=== PATIENT | female | born 1990 | race Caucasian/White ===

== ENCOUNTER 2018-01-08 12:07 | Emergency (ER) | payer OTHER ==
[2018-01-08 13:34] VITALS: BP 120/78
--- NOTE | 2018-01-08 13:42 | UC ---
Knee Pain HPI - HPI Summary HPI Summary: Patient presents with a remote history if left knee pain and injury from playing softball. She states it got better all on its own. She states that a few days agos her knee started to hurt again, and it began to swell. She states that the pain got so bad that is cannot walk on it. She states the pain is constant, but worse when she bends it, extends it, or walks on it. She states the pain is both on the inside, and outside of her knee. She denies any recent injury or trauma, new activity that would explain her pain. She denies any fever ,chills or warmth in the joing. - History of Current Complaint Chief Complaint: UCLowerExtremity Stated Complaint: KNEE PAIN Time Seen by Provider: 01/08/18 13:28 Hx Obtained From: Patient Hx Last Menstrual Period: BREAST FEEDING Onset/Duration: Sudden Onset, Lasting Days Severity Initially: Mild Severity Currently: Moderate Pain Intensity: 8 Character: Aching Aggravating Factor(s): Movement, Weight Bearing, Prolonged Standing, Stairs Alleviating Factor(s): Cold Associated Signs And Symptoms: Positive: Swelling Able to Bear Weight: Yes - but limping. - Risk Factors Septic Arthritis Risk Factor: Negative Gout Risk Factor: Negative - Allergies/Home Medications Allergies/Adverse Reactions: Allergies Allergy/AdvReac Type Severity Reaction Status Date / Time No Known Allergies Allergy Verified 08/13/16 16:38 Home Medications: Home Medications Clindamycin Cap(NF) [Clindamycin Cap 300 mg Cap(NF)] 300 mg PO Q6H 01/08/18 [ History Confirmed 01/08/18] Ibuprofen 800 mg PO Q8HR PRN 01/08/18 [History Confirmed 01/08/18] PMH/Surg Hx/FS Hx/Imm Hx Previously Healthy: Yes - Surgical History Surgical History: Yes Surgery Procedure, Year, and Place: D&C 09/04 - Family History Known Family History: Positive: None, Other - no hx RA/lupus - Social History Lives: With Family Alcohol Use: Rare Substance Use Type: None Smoking Status (MU): Former Smoker Type: Cigarettes Amount Used/How Often: 1/2 ppd Length of Time of Smoking/Using Tobacco: 10 yrs Have You Smoked in the Last Year: Yes Review of Systems Constitutional: Negative Skin: Negative Eyes: Negative ENT: Negative Respiratory: Negative Cardiovascular: Negative Gastrointestinal: Negative Genitourinary: Negative Motor: Negative Neurovascular: Negative Musculoskeletal: Decreased ROM, Edema, Myalgia Neurological: Negative Psychological: Negative Is Patient Immunocompromised?: No All Other Systems Reviewed And Are Negative: Yes Physical Exam Triage Information Reviewed: Yes Appearance: Well-Appearing Vital Signs: Initial Vital Signs Temp 98.5 F 01/08/18 13:29 Pulse 85 01/08/18 13:29 Resp 18 01/08/18 13:29 BP 120/78 01/08/18 13:29 Pulse Ox 99 01/08/18 13:29 Vital Signs Reviewed: Yes Eye Exam: Normal ENT Exam: Normal Neck exam: Normal Neck: Positive: 1 Respiratory Exam: Normal Cardiovascular Exam: Normal Abdominal Exam: Normal Musculoskeletal Exam: Normal Musculoskeletal: Positive: Strength Limited @ - right knee, medial and lateral collateral ligament tenderness on palpation. negative anterior and posterior draw sign, negative varus, and valus stress test., ROM Limited @, Edema @ Neurological Exam: Normal Psychological Exam: Normal Skin Exam: Normal Knee Pain Course/Dx - Course Course Of Treatment: Patient presents with non-traumatic right knee pain, with effusion present. She remains neuro-vasc intact and xrays of the knee were obtained and were negative. She was provided with crtches for non-weigh bearing activity and referred to the orthopedist. Pain addressed. Discahrge home is stable condition. - Differential Dx/Diagnosis Differential Diagnosis/HQI/PQRI: Sprain, Strain - right knee strain right knee sprain internal knee injury Provider Diagnoses: right knee sprain. right knee strain. internal knee injury Discharge - Discharge Plan Condition: Stable Disposition: HOME Patient Education Materials: Swollen Knee Joint (ED), Knee Pain (ED) Referrals: Manjit Duvall MD [Medical Doctor] - No Primary Care Phys,NOPCP [Primary Care Provider] -
--- NOTE | 2018-01-08 14:24 | RAD ---
INDICATION: Left knee pain. TECHNIQUE: 4 views of the left knee were obtained. FINDINGS: There is soft tissue swelling anterior to the proximal tibia. The bones are in normal alignment. No joint effusion or fracture is seen. Joint spaces appear maintained. IMPRESSION: SOFT TISSUE SWELLING.
== END 2018-01-08 14:50 | disposition home or self-care (01) ==
LOC: UCEAST 12:07
DX: S83.91XA Sprain of unspecified site of right knee, initial encounter (principal); S86.911A Strain of unspecified muscle(s) and tendon(s) at lower leg level, right leg, initial encounter; Z87.891 Personal history of nicotine dependence; X58.XXXA Exposure to other specified factors, initial encounter; Y92.9 Unspecified place or not applicable
CPT/HCPCS: 99213; G0463

== ENCOUNTER 2018-01-28 20:26 | Emergency (ER) | payer OTHER ==
[2018-01-28 20:34] VITALS: BP 136/89
[2018-01-28] MEDS ORDERED: Lidocaine 1% MPF* 2 ML VIAL INJ ONE (21:41)
[2018-01-28] MEDS ORDERED: cefTRIAXone VIAL(*) 1,000 MG VIAL IM ONE (21:41)
--- NOTE | 2018-01-28 21:48 | UC ---
Dental HPI - HPI Summary HPI Summary: 27 yo WF with h/o dental caries and filling in teeth #30 and 31 (molars are extracted) p/w severe pain due to abscess. Pt called her dentist and was told by her dentist to come to clinic for IV abx. HAs been on PO clindamycin for 1 month, lst visit to dentist was 2 days ago but needs oral surgeon to extract abscessed tooth due to "bent nerve" which cannot be done by her dentist. Awaiting oral surgeon appt on February 24 - History of Current Complaint Chief Complaint: UCDentalProblem Stated Complaint: DENTAL Time Seen by Provider: 01/28/18 21:25 Hx Obtained From: Patient Hx Last Menstrual Period: BREAST FEEDING Onset/Duration: Lasting Weeks, Still Present Severity: Severe Pain Intensity: 10 Aggravating Factor(s): Nothing Alleviating Factor(s): Nothing - Allergies/Home Medications Allergies/Adverse Reactions: Allergies Allergy/AdvReac Type Severity Reaction Status Date / Time No Known Allergies Allergy Verified 01/28/18 20:34 Home Medications: Home Medications Oxycodone HCl/Acetaminophen [Percocet 10-325 mg Tablet] 1 each PO PRN 01/28/18 [ History] PMH/Surg Hx/FS Hx/Imm Hx - Additional Past Medical History Additional PMH: none - Surgical History Surgical History: Yes Surgery Procedure, Year, and Place: D&C 09/04 - Family History Known Family History: Positive: None, Other - no hx RA/lupus - Social History Alcohol Use: None Substance Use Type: None Smoking Status (MU): Current Every Day Smoker Type: Cigarettes Amount Used/How Often: 5-6 CIG/DAY Length of Time of Smoking/Using Tobacco: 10 yrs Have You Smoked in the Last Year: Yes Review of Systems Constitutional: Negative Skin: Negative Eyes: Negative ENT: Other - see HPI Respiratory: Negative Cardiovascular: Negative Gastrointestinal: Negative Genitourinary: Negative Motor: Negative Neurovascular: Negative Musculoskeletal: Negative Neurological: Negative Psychological: Negative All Other Systems Reviewed And Are Negative: Yes Physical Exam Triage Information Reviewed: Yes Vital Signs: Initial Vital Signs Temp 36.6 C 01/28/18 20:28 Pulse 92 01/28/18 20:28 Resp 16 01/28/18 20:28 BP 136/89 01/28/18 20:28 Pulse Ox 100 01/28/18 20:28 Eye Exam: Normal ENT Exam: Normal Dental: Positive: Gross Decay/Caries @ - teeth 30 and 31caries and filling, abscess with exquisite tenderness deeply to root of tooth 30 Neck exam: Normal Neck: Positive: 1 Respiratory Exam: Normal Cardiovascular Exam: Normal Abdominal Exam: Normal Musculoskeletal Exam: Normal Neurological Exam: Normal Psychological Exam: Normal Skin Exam: Normal Dental Complaint Course/Dx - Course Course Of Treatment: IV Rocephin 1g administered, per pt request and also due to minimal efficacy of PO clindamycin inspite of taking it x1 month, will change medicationover to ceftin 500 BID x10 more days - Differential Dx/Diagnosis Differential Diagnosis/Dx: Dental Abscess, Dental Caries, Peridontic Disease Provider Diagnoses: dental abscess Discharge - Discharge Plan Condition: Stable Disposition: HOME Prescriptions: ceFUROXime TAB(*) [Ceftin TAB 250 MG(*)] 500 mg PO BID 10 Days #20 tab Patient Education Materials: Dental Abscess (ED) Referrals: Barb Newman MD [Primary Care Provider] - Additional Instructions: f/u with dentist simba
== END 2018-01-28 22:12 | disposition home or self-care (01) ==
LOC: UCEAST 20:26
DX: K04.7 Periapical abscess without sinus (principal); K02.9 Dental caries, unspecified; F17.210 Nicotine dependence, cigarettes, uncomplicated
CPT/HCPCS: 96372; 99212; G0463; J0696

== ENCOUNTER 2018-04-13 07:10 | Emergency (ER) | payer OTHER ==
[2018-04-13 07:26] VITALS: BP 129/88
--- NOTE | 2018-04-13 08:05 | UC ---
Complaint Female HPI - HPI Summary HPI Summary: 27 yo WF lactating WF p/w UTI sx- dysuria, urgency and frequency, lower abd pain , B/L lower back pains x 2 days, denies f/c - History Of Current Complaint Chief Complaint: UCGU Stated Complaint: URINARY Hx Obtained From: Patient Hx Last Menstrual Period: 03/21/18 ?: No Onset/Duration: Gradual Onset Severity Initially: Moderate Severity Currently: Severe Pain Intensity: 10 Aggravating Factor(s): Urination Alleviating Factor(s): Nothing Associated Signs And Symptoms: Positive: Back Pain - Allergies/Home Medications Allergies/Adverse Reactions: Allergies Allergy/AdvReac Type Severity Reaction Status Date / Time No Known Allergies Allergy Verified 04/13/18 07:26 PMH/Surg Hx/FS Hx/Imm Hx Previously Healthy: Yes - Surgical History Surgical History: Yes Surgery Procedure, Year, and Place: D&C 09/04 - Family History Known Family History: Positive: None, Other - no hx RA/lupus - Social History Alcohol Use: None Substance Use Type: None Smoking Status (MU): Current Every Day Smoker Type: Cigarettes Amount Used/How Often: 5-6 CIG/DAY Length of Time of Smoking/Using Tobacco: 10 yrs Have You Smoked in the Last Year: Yes Review of Systems Constitutional: Negative Skin: Negative Eyes: Negative ENT: Negative Respiratory: Negative Cardiovascular: Negative Gastrointestinal: Negative Genitourinary: Dysuria, Frequency, Urgency Motor: Negative Neurovascular: Negative Musculoskeletal: Negative Neurological: Negative Psychological: Negative All Other Systems Reviewed And Are Negative: Yes Physical Exam Triage Information Reviewed: Yes Appearance: Well-Appearing Vital Signs: Initial Vital Signs Temp 36.3 C 04/13/18 07:20 Pulse 85 04/13/18 07:20 Resp 20 04/13/18 07:20 BP 129/88 04/13/18 07:20 Pulse Ox 98 04/13/18 07:20 Eye Exam: Normal ENT Exam: Normal Dental Exam: Normal Neck exam: Normal Neck: Positive: 1 Respiratory Exam: Normal Cardiovascular Exam: Normal Abdomen Description: Positive: Soft, CVA Tenderness (R), CVA Tenderness (L), Other: - suprapubic tenderness Musculoskeletal Exam: Normal Neurological Exam: Normal Psychological Exam: Normal Skin Exam: Normal Complaint Female Dx - Course Course Of Treatment: UA positive for LE, blood - Differential Dx/Diagnosis Provider Diagnoses: UTI Discharge - Sign-Out/Discharge Documenting (check all that apply): Discharge/Admit/Transfer - Discharge Plan Condition: Stable Disposition: HOME Prescriptions: Amoxicillin PO (*) [Amoxicillin 875 MG (*)] 875 mg PO BID 10 Days #20 tab Fluconazole [Fluconazole 150 mg tab] 150 mg PO DAILY 2 Days #2 tablet Patient Education Materials: Urinary Tract Infection in Women (ED) Referrals: Barb Newman MD [Primary Care Provider] - - Billing Disposition and Condition Condition: STABLE Disposition: HOME
== END 2018-04-13 08:08 | disposition home or self-care (01) ==
LOC: UCEAST 07:10
DX: N39.0 Urinary tract infection, site not specified (principal); F17.210 Nicotine dependence, cigarettes, uncomplicated
CPT/HCPCS: 81003; 87077; 87086; 87186; 99212; G0463

== ENCOUNTER 2018-08-06 10:46 | Emergency (ER) | payer OTHER ==
[2018-08-06 10:52] VITALS: BP 135/78
--- NOTE | 2018-08-06 11:24 | UC ---
Back Pain HPI - HPI Summary HPI Summary: pt has had low back pain several times in past. has been pain free for 1-2 years. however last carmel she bent over to lift gatorade into shopping cart and felt a sharp pain in R lower back. worsened over carmel and occasionally pain radiates to R leg. no incontinence or numbness. heat and ibuprofen 800mg has helped a bit - History of Current Complaint Chief Complaint: UCBackPain Stated Complaint: R LEG, LOWER BACK PAIN Time Seen by Provider: 08/06/18 11:09 Hx Obtained From: Patient Hx Last Menstrual Period: 07/26/18 ?: No Onset/Duration: Sudden Onset Timing: Constant Severity Initially: Moderate Severity Currently: Severe Pain Intensity: 8 Back Pain: Is Discrete @ - R lower back Character: Throbbing, Stiffness Aggravating Factor(s): Movement, Bending Alleviating Factor(s): Heat, OTC Meds Associated Signs And Symptoms: Positive: Negative Related History: Similar Episode Dx As - low back strain - Risk Factors Cauda Equina Risk Factors: Negative - Allergies/Home Medications Allergies/Adverse Reactions: Allergies Allergy/AdvReac Type Severity Reaction Status Date / Time No Known Allergies Allergy Verified 08/06/18 10:53 PMH/Surg Hx/FS Hx/Imm Hx Previously Healthy: Yes - Surgical History Surgical History: Yes Surgery Procedure, Year, and Place: D&C 09/04 - Family History Known Family History: Positive: None, Other - no hx RA/lupus - Social History Occupation: Unemployed Lives: With Family Alcohol Use: None Substance Use Type: None Smoking Status (MU): Light Every Day Tobacco Smoker Type: Cigarettes Amount Used/How Often: 5-6 CIG/DAY Length of Time of Smoking/Using Tobacco: 10 yrs Have You Smoked in the Last Year: Yes Cessation Counseling: Patient Advised to Stop Review of Systems Constitutional: Negative Skin: Negative Respiratory: Negative Cardiovascular: Negative Musculoskeletal: Decreased ROM - low back Neurological: Negative Psychological: Negative Is Patient Immunocompromised?: No All Other Systems Reviewed And Are Negative: Yes Physical Exam Triage Information Reviewed: Yes Appearance: Well-Appearing, Pain Distress - sitting stiffly in chair, Obese Vital Signs: Initial Vital Signs Temp 98 F 08/06/18 10:48 Pulse 92 08/06/18 10:48 Resp 16 08/06/18 10:48 BP 135/78 08/06/18 10:48 Pulse Ox 99 08/06/18 10:48 Vital Signs Reviewed: Yes Neck exam: Normal Respiratory Exam: Normal Cardiovascular Exam: Normal Musculoskeletal: Positive: ROM Limited @ Neurological Exam: Normal Psychological Exam: Normal Skin Exam: Normal Skin: Negative: rashes Back Pain Course/Dx - Differential Dx/Diagnosis Differential Diagnosis/HQI/PQRI: Cauda Equina Syndrome, Strain, Sprain Provider Diagnoses: low back strain Discharge - Sign-Out/Discharge Documenting (check all that apply): Patient Departure All imaging exams completed and their final reports reviewed: No Studies - Discharge Plan Condition: Good Disposition: HOME Prescriptions: Cyclobenzaprine TAB* [Flexeril 10 MG TAB*] 10 mg PO TID PRN #12 tab PRN Reason: Pain - Back predniSONE TAB* [Deltasone TAB*] 50 mg PO DAILY #3 tab Patient Education Materials: Low Back Strain (ED) Referrals: Barb Newman MD [Primary Care Provider] - 3 Days (if no better) Additional Instructions: Take medication as directed use warm moist heat to back do stretching exercises no heavy lifting - Billing Disposition and Condition Condition: GOOD Disposition: Home
== END 2018-08-06 11:40 | disposition home or self-care (01) ==
LOC: UCEAST 10:46
DX: S39.012A Strain of muscle, fascia and tendon of lower back, initial encounter (principal); X50.0XXA Overexertion from strenuous movement or load, initial encounter; Y93.89 Activity, other specified; Y92.512 Supermarket, store or market as the place of occurrence of the external cause; F17.210 Nicotine dependence, cigarettes, uncomplicated
CPT/HCPCS: 99212; G0463

== ENCOUNTER 2018-10-10 15:48 | Emergency (ER) | payer OTHER ==
--- OUTSIDE RECORDS SUMMARY | 2018-10-10 16:06 | XMS REPORT | Continuity of Care Document ---
:1990 External Reference #:[id number] Author Name Radhames Alexandre N.P. Address [address] [facility] [address] [place] [address] Care Team Providers Name Role Phone Barb Newman MD Care Team Information Damage Inside Adjuster Unavailable Payers Type Date Identification Numbers Payment Provider Subscriber Policy Number: [id number] [facility] Mecca Vieira PayID: [id number] [address] [place] [address] Policy Number: [id number] Medicaid/[facility] Mecca Vieira PayID: [id number] [address] [place] [address] Advance Directives Description No Information Available Problems Date Description Provider Status Onset: 09/30/2014 Tobacco user Sherrill Perez FNP Active Family History Date Family Member(s) Problem(s) Comments Father 72 Father Cancer Mother 44 Mother No Current Problems First Son 8 First Son No Current Problems First Brother Age is Unknown First Brother No Current Problems Second Brother Age is Unknown Second Brother No Current Problems First Sister 24 First Sister No Current Problems Second Sister Age is Unknown Second Sister No Current Problems Social History Type Date Description Comments Sex Unknown Marital Status Legal Status: Legally 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 alcohol Tobacco Use Start: Unknown Patient is a current 10 cigarettes a day smoker, smokes every day Smoking Status Reviewed: 09/22/18 Patient is a current 10 cigarettes a day smoker, smokes every day Exercise Exercises rarely Type/Frequency Tattoo/Piercing Tattoo multiple tattoo's Tattoo/Piercing Pierced tongue Tattoo/Piercing Pierced ears Tattoo/Piercing nose piercing Allergies, Adverse Reactions, Alerts Description No Known Drug Allergies Medications Medication Date Status Form Strength Qnty SIG Indications Ordering Provider Citalopram 09/25/ Active Tablets 10mg 30tab 1 by mouth F41.9 Trent, Hydrobromide 2018 s every day Ahmad M., Take With M.D. 20MG Tabs. Total Dose=30MG Tylenol Extra 08/07/ Active Tablets 500mg 180ta 2 tabs by M54.5 Trent, Strength 2018 bs mouth three Ahmad M., times a day M.D. as directed. max daily dose of tylenol from all sources to not exceed 4000mg Cyclobenzaprine 08/07/ Active Tablets 5mg 90tab 1 tab by M54.5 Trent, HCL 2018 s mouth three Ahmad M., times a day M.D. as needed Celexa 08/07/ Active Tablets 20mg 30tab 1 by mouth F41.9 Trent, 2018 s every day Ahmad M., with 10mg M.D. tab total dose=30mg daily Naproxen Sodium 08/07/ Active Tablets 275mg 60tab 1 tab by Trent, 2018 s mouth twice Ahmad M., a day M.D. Aleve 08/07/ Hx Tablets 220mg 60tab 1 tab by M54.5 Trent, 2018 - s mouth twice Ahmad M., 08/07/ a day M.D. 2018 Tylenol Extra 08/07/ Hx Tablets 500mg 180ta 2 tabs by M54.5 Trent, Strength 2018 - bs mouth three Ahmad M., 08/07/ times a day M.D. 2018 as directed. max daily dose of tylenol from all sources to not exceed 4000mg Percocet 01/26/ Hx Tablets 10-325mg 30tab 1 tab by K02.9 Trent, 2018 - s mouth three Ahmad M., 08/07/ times a day M.D. 2018 as needed Ibuprofen 01/26/ Hx Tablets 800mg 90tab 1 by mouth K02.9 Trent, 2018 - s three times Ahmad M., 08/07/ a day as M.D. 2018 needed Azithromycin 08/09/ Hx Tablets 250mg 6tabs take two J01.40 Trent 2015 - tablets by Ahcherise M., 08/14/ mouth as M.D. 2016 one dose on the first day then take one daily thereafter x 4 days Amoxicillin 07/14/ Hx Tablets 500mg 30tab 1 three N39.0 [facility], 2015 - s times a day mad M., 07/21/ x10 day M.D. 2015 Amoxicillin 04/29/ Hx Tablets 500mg 40tab 2 by mouth J20.9 [facility], 2015 - [facility]. [facility] Clindamycin HCL 02/08/ Hx Capsules 150mg 20cap tab one by [facility], 2015 - s mouth twice mad M., 02/18/ a day M.D. 2015 Ciprofloxacin HCL 01/27/ Hx Tablets 500mg 20tab tab one by J01.80 Trent , 2015 - s mouth twice mad M., 02/06/ a day M.D. 2015 Medrol (William) 11/26/ Hx Tablets 4mg 21tab use as M54.42 [facility], 2015 - s directed [facility] 2016 Tramadol HCL 11/26/ Hx Tablets 50mg 45tab 1 by mouth M54.42 [facility], 2015 - s three times [facility] 12/06/ a day M.D. 2015 Adderall XR 10/29/ Hx Caps ER 30mg 30cap 1 by mouth F90.0 [facility], 2014 - 24HR s every [facility] 02/26/ morning M.D. 2016 Medrol (William) 10/08/ Hx Tablets 4mg 14tab use as S33.8xxA [facility], 2014 - s [facility] 2014 M54.5 Cipro 10/08/2015 - Hx Tablets 500mg 20tabs 1 twice a day J06.9 [facility] 10[facility]18[facility]2015 Isaac Chand J01.80 Lor Mendoza 10/08/2015 - Hx Capsules 100mg 60caps take Two R05 Trent, 10/29/2015 capsule by Barb Chand, mouth three M.D. times a day Diflucan 10/08/2015 - Hx Tablets 150mg 2tabs tab one now B37.3 [facility], 10/29/2015 may repeat Ahmad M., in 5 days M.D. Cheratussin ac 09/24/2015 - Hx Syrup 100-10mg/ 150cc teaspoon 1 R05 [facility], 10/08/2015 5ML every 4 Ahmad M., hours as M.D. needed 08/06/2015 - Hx Tablets 14-0.4mg 30tabs 1 by mouth N91.0 [facility] , Complete 10/29/2015 every day Barb Chand M.D. Physical 06/04/2015 - Hx M54.5 [facility], Therapy For 10/29/2015 [facility] Chronic Low M.D. Back Pain S33.8xxA M54.30 Cyclobenzaprine HCL 05/22/2015 - Hx Tablets 10mg 90tabs tab one by [facility], 10/29/2015 mouth three Ahmad M., times a day M.D. Adderall XR 04/23/2015 - Hx Caps ER 24HR 20mg 30caps tab 1 by F90. [facility], 10/29/2015 mouth every 0 Ahmad M., morning M.D. Strattera 03/24/2015 - Hx Capsules 40mg 30caps 1 cap by 314. [facility], 04/23/2015 mouth every 00 Ahmad M., day M.D. 300.00 Chantix 03/24/2015 - Hx Tablets 1mg 60tabs 1 by mouth 305.1 [facility], [facility] 04[facility]2015 twice a day Isaac Chand Medrol (William) 02/11/2015 - Hx Tablets 4mg 14tabs use as directed 846.0 [facility], [facility] 02/17/2015 Isaac Chand 724.2 Hydrocodone-Acetaminophen 02/11/2015 Hx Tablets 10-325mg 180tabs 1 by M54.5 [facility], - mouth mad 10/29/2015 every 4 M., hours M.D. as needed S33.8xxA Complete 01/17/2015 - Hx Tablets 14-0.4mg 30tabs 1 by mouth V22.2 [facility], 04/23/2015 every day Barb Chand M.D. 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 as needed for pain 846.0 Ibuprofen 09/13/2014 - Hx Tablets 800mg 90tabs 1 tab by mouth M54.5 Favian Newmanmad 01/26/2018 every 8 hours Isaac Chand with food as needed for pain S33.8xxA 08/05/2014 - Hx Tablets 14-0.4mg take 1 Chris, Complete 08/05/2014 tablet by Sherrill, BUTTER PRINTER mouth daily 19 08/05/2014 - Hx Tablets 29-1mg 30tab take 1 626.0 Chris, 09/20/2014 s tablet by Sherrill, BUTTER PRINTER mouth daily Amoxicillin 07/12/2014 - Hx Tablets 500mg 21tab take 1 528.9 Chris, 07/26/2014 s tablet by Sherrill, BUTTER PRINTER mouth three times a day for 7 days Immunizations CPT Code Status Date Vaccine Lot # [id number] Given 08/23/2018 Flu Vaccine [id number] 03605 Given 09/05/2014 Flu Vaccine 56923 Given 05/07/1993 Hep B To Age 18 11447 Given 09/25/1992 Hep B To Age 18 02132 Given 09/25/1992 IPV 07802 Given 09/25/1992 MMR 71270 Given 09/25/1992 DTaP [facility] [id number] ML 0.50 31138 Given 03/24/1992 Hemophilus Influenza B Vaccine 35771 Given 03/24/1992 DTaP [facility] [id number] ML 0.50 86138 Given 03/24/1992 MMR 13744 Given 03/24/1992 IPV 38405 Given 07/16/1991 IPV 35198 Given 07/16/1991 DTaP [facility] [id number] ML 0.50 90139 Given 07/16/1991 Hemophilus Influenza B Vaccine 17347 Given 02/01/1991 IPV 08479 Given 02/01/1991 DTaP [facility] [id number] ML 0.50 83285 Given 02/01/1991 Hemophilus Influenza B Vaccine Vital Signs Date Vital Result Comment 09/25/2018 11:21am BP Systolic 124 mmHg BP Diastolic 78 mmHg Height 64.5 inches 5'4.50" Weight 272.00 lb BMI (Body Mass Index) 46.0 kg/m2 Heart Rate 71 /min Respiratory Rate 14 /min 08/23/2018 11:09am BP Systolic 118 mmHg BP Diastolic 64 mmHg Height 64.5 inches 5'4.50" Weight 273.00 lb BMI (Body Mass Index) 46.1 kg/m2 Heart Rate 76 /min Respiratory Rate 16 /min 08/07/2018 11:09am BP Systolic 126 mmHg BP Diastolic 68 mmHg Height 64.5 inches 5'4.50" Weight 278.00 lb BMI (Body Mass Index) 47.0 kg/m2 Heart Rate 87 /min Respiratory Rate 16 /min 01/26/2018 1:10pm BP Systolic 122 mmHg BP Diastolic 84 mmHg Height 64.5 inches 5'4.50" Weight 284.00 lb BMI (Body Mass Index) 48.0 kg/m2 Heart Rate 84 /min Respiratory Rate 18 /min 03/28/2017 9:54am BP Systolic 116 mmHg BP Diastolic 60 mmHg Weight 257.00 lb Heart Rate 68 /min Respiratory Rate 16 /min 08/09/2016 1:39pm Weight 249.00 lb Heart Rate 82 /min Respiratory Rate 16 /min 07/14/2016 9:35am BP Systolic 122 mmHg BP Diastolic 70 mmHg Height 64.5 inches 5'4.50" Weight 247.00 lb BMI (Body Mass Index) 41.7 kg/m2 Heart Rate 112 /min Respiratory Rate 22 /min 06/14/2016 9:40am BP Systolic 128 mmHg BP Diastolic 76 mmHg Height 64.5 inches 5'4.50" Weight 241.00 lb BMI (Body Mass Index) 40.7 kg/m2 Heart Rate 86 /min Respiratory Rate 20 /min 04/29/2016 1:38pm BP Systolic 112 mmHg BP Diastolic 80 mmHg Height 64.5 inches 5'4.50" Weight 233.00 lb BMI (Body Mass Index) 39.4 kg/m2 Heart Rate 78 /min Body Temperature 97.9 F Respiratory Rate 18 /min 02/09/2016 10:30am BP Systolic 118 mmHg BP Diastolic 80 mmHg Height 64.5 inches 5'4.50" Weight 213.00 lb BMI (Body Mass Index) 36.0 kg/m2 Heart Rate 86 /min Respiratory Rate 18 /min 01/28/2016 10:52am BP Systolic 120 mmHg BP Diastolic 82 mmHg Height 64.5 inches 5'4.50" Weight 218.00 lb BMI (Body Mass Index) 36.8 kg/m2 Heart Rate 93 /min Body Temperature 97.5 F Respiratory Rate 18 /min 12/31/2015 9:42am BP Systolic 126 mmHg BP Diastolic 77 mmHg Height 64.5 inches 5'4.50" Weight 218.00 lb BMI (Body Mass Index) 36.8 kg/m2 Heart Rate 103 /min Respiratory Rate 18 /min 11/26/2015 3:57pm BP Systolic 121 mmHg BP Diastolic 83 mmHg Height 64.5 inches 5'4.50" Weight 218.00 lb BMI (Body Mass Index) 36.8 kg/m2 Heart Rate 101 /min Respiratory Rate 18 /min 10/29/2015 3:47pm BP Systolic 106 mmHg BP Diastolic 74 mmHg Height 64.5 inches 5'4.50" Weight 218.00 lb BMI (Body Mass Index) 36.8 kg/m2 Heart Rate 87 /min Respiratory Rate 18 /min 10/08/2015 9:53am BP Systolic 100 mmHg BP Diastolic 71 mmHg Height 64.5 inches 5'4.50" Weight 222.00 lb BMI (Body Mass Index) 37.5 kg/m2 Heart Rate 92 /min Body Temperature 97.4 F Respiratory Rate 22 /min 09/24/2015 8:44am BP Systolic 107 mmHg BP Diastolic 70 mmHg Height 64.5 inches 5'4.50" Weight 240.00 lb BMI (Body Mass Index) 40.6 kg/m2 Heart Rate 73 /min Body Temperature 97.5 F Respiratory Rate 18 /min 08/06/2015 10:18am BP Systolic 119 mmHg BP Diastolic 75 mmHg Height 64.5 inches 5'4.50" Weight 228.00 lb BMI (Body Mass Index) 38.5 kg/m2 Heart Rate 90 /min Respiratory Rate 18 /min 07/16/2015 1:36pm BP Systolic 131 mmHg BP Diastolic 84 mmHg Height 64.5 inches 5'4.50" Weight 222.00 lb BMI (Body Mass Index) 37.5 kg/m2 Heart Rate 106 /min Respiratory Rate 16 /min 05/22/2015 1:27pm BP Systolic 132 mmHg BP Diastolic 86 mmHg Height 64.5 inches 5'4.50" Weight 226.00 lb BMI (Body Mass Index) 38.2 kg/m2 Heart Rate 80 /min Respiratory Rate 20 /min 04/23/2015 1:39pm BP Systolic 135 mmHg BP Diastolic 73 mmHg Height 64.5 inches 5'4.50" Weight 229.00 lb BMI (Body Mass Index) 38.7 kg/m2 Heart Rate 100 /min Respiratory Rate 18 /min 03/24/2015 10:54am BP Systolic 115 mmHg BP Diastolic 79 mmHg Height 64.5 inches 5'4.50" Weight 244.00 lb BMI (Body Mass Index) 41.2 kg/m2 Heart Rate 99 /min Respiratory Rate 16 /min 02/11/2015 11:25am BP Systolic 115 mmHg BP Diastolic 76 mmHg Height 64.5 inches 5'4.50" Weight 234.00 lb BMI (Body Mass Index) 39.5 kg/m2 Heart Rate 89 /min Respiratory Rate 18 /min 01/17/2015 4:12pm BP Systolic 132 mmHg BP Diastolic 78 mmHg Height 64.5 inches 5'4.50" Weight 235.00 lb BMI (Body Mass Index) 39.7 kg/m2 Heart Rate 92 /min Respiratory Rate 16 /min 09/30/2014 3:55pm BP Systolic 126 mmHg BP Diastolic 70 mmHg Height 64.5 inches 5'4.50" Weight 224.00 lb BMI (Body Mass Index) 37.9 kg/m2 Heart Rate 90 /min Body Temperature 97.7 F Respiratory Rate 16 /min 09/13/2014 3:54pm BP Systolic 110 mmHg BP Diastolic 73 mmHg Height 64.5 inches 5'4.50" Weight 221.00 lb BMI (Body Mass Index) 37.3 kg/m2 Heart Rate 78 /min Respiratory Rate 18 /min 08/05/2014 10:04am BP Systolic 110 mmHg BP Diastolic 66 mmHg Height 64.5 inches 5'4.50" Weight 229.00 lb BMI (Body Mass Index) 38.7 kg/m2 Heart Rate 84 /min Respiratory Rate 22 /min 07/12/2014 9:07am BP Systolic 117 mmHg BP Diastolic 80 mmHg Height 64.5 inches 5'4.50" Weight 221.00 lb BMI (Body Mass Index) 37.3 kg/m2 Heart Rate 73 /min Body Temperature 97.0 F Respiratory Rate 20 /min Results Test Date Facility Test Result H/L Range Note CBC With Diff 08/23/2018 [facility] WBC 6.6 10*3/uL (4.1-11.0) [address] (607)- - RBC 4.68 10*6/uL (4.00-5.40) HGB 14.0 g/dL (12.0-16.0) HCT 40.9 % (36.0-47.0) MCV 87.4 fL (80.0-95.0) MCH 30.0 pg (27.0-32.0) MCHC 34.3 g/dL (32.0-36.0) RDW 13.0 % (10.5-14.5) PLT 249 10*3/uL (150-450) MPV 9.8 fL (7.1-10.7) Neut % 64.7 % (35.0-75.0) Lymph % 25.2 % (16.0-52.0) Milam % 7.8 % (0.0-8.0) Eos % 1.6 % (0.0-5.0) Baso % 0.7 % (0.0-4.0) Neut # 4.3 10*3/uL (1.8-7.7) Lymph # 1.7 10*3/uL (1.2-4.8) Milam # 0.5 10*3/uL (0.0-0.8) Eos # 0.1 10*3/uL (0.0-0.5) Baso # 0.0 10*3/uL (0.0-0.2) CMP 08/23/2018 [facility] Sodium 140 mmol/L (136-145) [address] (607)- - Potassium 4.2 mmol/L (3.6-5.2) Chloride 104 mmol/L (100-108) Co2 29 mmol/L (22-31) Anion Gap 7 mmol/L (7-16) Urea Nitrogen 12 mg/dL (7-24) Creatinine 0.68 mg/dL (0.60-1.00) BUN/Creat Ratio 17.6 RATIO (10.0-20.0) Glucose 59 mg/dL Low (70-99) Calcium 8.6 mg/dL (8.4-10.2) Total Protein 6.9 g/dL (6.4-8.2) Albumin 3.9 g/dL (3.5-4.6) Globulin 3.0 g/dL (2.7-4.3) Alb/Glob Ratio 1.3 RATIO Alkaline Phosphatase 71 U/L (45-117) Bilirubin,Total 0.4 mg/dL (0.0-1.0) Ast (Sgot) 14 U/L (11-39) Alt (SGPT) 23 U/L (12-78) GFR >60 ml/min/1.73m2 (>59) GFR ( Amer) >60 ml/min/1.73m2 (>59) GFR Interpretation <SEE NOTE> 1 Hemoglobin A1c 08/23/2018 [facility] Hemoglobin A1c @ 5.2 % (4.0-6.0) 2 [address] (607)- - Est Average Glucose 103 mg/dL Lipid 08/23/2018 [facility] Cholesterol @ 200 mg/dL (0-200) [address] (607)- - Triglyceride @ 293 mg/dL High (30-200) HDL Cholesterol @ 33 mg/dL Low (>40) 3 Chol/HDL Ratio 6.1 RATIO 4 LDL Chol (Calc) 108 mg/dL (<130) 5 Laboratory test 08/23/2018 [facility] TSH,Ultrasensitive @ 1.010 ( 0.360-4.170) finding [address] mIU/L (607)- - Urine Culture 04/13/2018 [facility] Urine Culture SEE RESULT 6, And BELOW 7 Sensitivities Poc Urinalysis 04/13/2018 [facility] Poc Glucose, Urine Negative Negative Poc Bilirubin, Urine Negative Negative Poc Ketone, Urine Negative Negative Poc Specific Velma, Urine 1.025 1.010-1.030 Poc Blood, Urine 3+ Negative Poc pH, Urine 5.0 5-9 Poc Protein, Urine 2+ Negative Poc Urobilinogen, Urine 0.2 Negative Poc Nitrite, Urine Positive Negative Poc Leukocytes, Urine 1+ Negative Poc Color, Urine Dark yellow Poc Clarity, Urine Slightly Cloudy 8 Urine Culture 03/11/2017 [facility] Urine Culture MIXED URETHRAL F <SEE NOTE > 9, 10 Quantity > 100,000 CFU/mL 11 Laboratory test finding 03/11/2017 [facility] HCG, Quant < 1.0 mIU/mL 12 Urinalysis With Microscopic 03/11/2017 [facility] Urine Color YELLOW Yellow Urine Clarity CLEAR Clear Urine Glucose - Dipstick NEGATIVE mg/dL Negative Urine Bilirubin - Dipstick NEGATIVE Negative Urine Ketone NEGATIVE mg/dL Negative Urine Specific Velma 1.025 1.010-1.030 Urine Blood NEGATIVE Negative Urine PH 6.0 Low 6.5-7.5 Urine Protein - Dipstick NEGATIVE mg/dL Negative Urine Urobilinogen - Dipstick 0.2 E.U./dL 0.2-1.0 Urine Nitrite - Dipstick NEGATIVE Negative Urine Leuk Esterase SMALL Negative Urine RBC 0-2 rbc/hpf 0-2 Urine WBC 5-10 wbc/hpf 0-7 Urine Epithelial Cells MANY /lpf None Seen 13 Urine Bacteria MODERATE None Seen Urine Mucus MODERATE None Seen Source: URINE, CLEAN CAT <SEE NOTE> 14 CBC 03/11/2017 [facility] White Blood Count 6.0 K/uL 3.1-10.7 Red Blood Count 4.93 M/uL 3.90-5.40 Hemoglobin 14.9 gm/dL 11.6-15.8 Hematocrit 42.6 % 36.0-46.1 Mean Cell Volume 86.4 fl 80.9-99.0 Mean Corpuscular HGB 30.2 pg 25.9-32.7 Mean Corpuscular HGB Conc 35.0 g/dL High 30.8-34.3 Platelet Count 203 K/uL 150-400 Red Cell Distri Width %CV 12.0 % 11.7-14.4 Mean Platelet Volume 10.8 fL 8.9-12.4 Hemoglobin/Hematocrit 10/30/2016 [facility] Hemoglobin 11.4 gm/dL Low 11.6- 15.8 15 Hematocrit 33.9 % Low 36.0-46.1 Laboratory test 10/29/2016 [facility] Screen NEGATIVE 16 finding CBC 10/27/2016 [facility] White Blood Count 11.4 K/uL High 3.1-10.7 17 Red Blood Count 3.96 M/uL 3.90-5.40 Hemoglobin 12.7 gm/dL 11.6-15.8 Hematocrit 36.5 % 36.0-46.1 Mean Cell Volume 92.2 fl 80.9-99.0 Mean Corpuscular HGB 32.1 pg 25.9-32.7 Mean Corpuscular HGB Conc 34.8 g/dL High 30.8-34.3 Platelet Count 148 K/uL Low 155-360 Red Cell Distri Width %CV 13.9 % 11.7-14.4 Mean Platelet Volume 11.7 fL 8.9-12.4 Laboratory 10/09/2016 [facility] Treponema Antibody Nonreactive Nonreactive 18, 19 test finding [facility] 10/09/2016 [facility] Antibody D 20 test finding Identification Ua RFX Micro & 10/09/2016 [facility] Urine Color YELLOW Yellow Culture II Urine Clarity CLEAR Clear Urine Glucose - Dipstick NEGATIVE mg/dL Negative Urine Bilirubin - Dipstick NEGATIVE Negative Urine Ketone 15 mg/dL High Negative Urine Specific Velma 1.020 1.010-1.030 Urine Blood NEGATIVE Negative Urine PH 6.0 Low 6.5-7.5 Urine Protein - Dipstick NEGATIVE mg/dL Negative Urine Urobilinogen - Dipstick 0.2 E.U./dL 0.2-1.0 Urine Nitrite - Dipstick NEGATIVE Negative Urine Leuk Esterase NEGATIVE Negative Source: URINE, CLEAN CAT <SEE NOTE> 21 CBC 10/09/2016 [facility] White Blood Count 12.1 K/uL High 3.1-10.7 Red Blood Count 4.11 M/uL 3.90-5.40 Hemoglobin 12.9 gm/dL 11.6-15.8 Hematocrit 37.9 % 36.0-46.1 Mean Cell Volume 92.2 fl 80.9-99.0 Mean Corpuscular HGB 31.4 pg 25.9-32.7 Mean Corpuscular HGB Conc 34.0 g/dL 30.8-34.3 Platelet Count 165 K/uL 155-360 Red Cell Distri Width %CV 13.8 % 11.7-14.4 Mean Platelet Volume 11.8 fL 8.9-12.4 Type And Screen 10/09/2016 [facility] Patient Blood Type A NEG Antibody Screen POSITIVE Negative CBC 10/07/2016 [facility] White Blood Count 11.6 K/uL High 3.1-10.7 22 Red Blood Count 4.01 M/uL 3.90-5.40 Hemoglobin 12.6 gm/dL 11.6-15.8 Hematocrit 36.7 % 36.0-46.1 Mean Cell Volume 91.5 fl 80.9-99.0 Mean Corpuscular HGB 31.4 pg 25.9-32.7 Mean Corpuscular HGB Conc 34.3 g/dL 30.8-34.3 Platelet Count 174 K/uL 155-360 Red Cell Distri Width %CV 13.6 % 11.7-14.4 Mean Platelet Volume 11.8 fL 8.9-12.4 Urinalysis With Microscopic 10/07/2016 [facility] Urine Color YELLOW Yellow Urine Clarity SL CLOUDY Clear Urine Glucose - Dipstick NEGATIVE mg/dL Negative Urine Bilirubin - Dipstick NEGATIVE Negative Urine Ketone 15 mg/dL High Negative Urine Specific Velma 1.020 1.010-1.030 Urine Blood NEGATIVE Negative Urine PH 6.5 6.5-7.5 Urine Protein - Dipstick NEGATIVE mg/dL Negative Urine Urobilinogen - Dipstick 0.2 E.U./dL 0.2-1.0 Urine Nitrite - Dipstick NEGATIVE Negative Urine Leuk Esterase TRACE Negative Urine RBC 0-2 rbc/hpf 0-2 Urine WBC 2-5 wbc/hpf 0-7 Urine Epithelial Cells MANY /lpf None Seen 23 Urine Calcium Oxalate Crystals MODERATE None Seen Urine Bacteria MANY None Seen Source: URINE, CLEAN CAT <SEE NOTE> 24 Urine Culture 10/07/2016 [facility] Urine Culture MIXED URETHRAL F <SEE NOTE > 25 Quantity > 100,000 CFU/mL 26 Laboratory test 07/14/2016 [facility] Urine Culture SPECIMEN 27 finding [address]> (607)- - Laboratory test 12/28/2015 [facility] Urine HCG NEGATIVE Negative 28 finding (Qualitative) Urine Screen 12/28/2015 [facility] Urine Color DK YELLOW Yellow Urine Clarity SL CLOUDY Clear Urine Glucose - Dipstick NEGATIVE mg/dL Negative Urine Bilirubin - Dipstick NEGATIVE Negative Urine Ketone NEGATIVE mg/dL Negative Urine Specific Velma 1.025 1.010-1.030 Urine Blood NEGATIVE Negative Urine PH 6.0 Low 6.5-7.5 Urine Protein - Dipstick NEGATIVE mg/dL Negative Urine Urobilinogen - Dipstick 0.2 E.U./dL 0.2-1.0 Urine Nitrite - Dipstick NEGATIVE Negative Urine Leuk Esterase NEGATIVE Negative Laboratory test 11/10/2015 [facility] Erythrocyte Sed Rate 10 mm/Hr 0-14 finding Kathleen (Antinuclear Antibodies) Negative Negative CBC No Diff 11/10/2015 [facility] White Blood Count 5.4 10^3/uL 3.5- 10.8 Red Blood Count 4.84 10^6/uL 4.0-5.4 Hemoglobin 15.2 g/dL 12.0-16.0 Hematocrit 45 % 35-47 Mean Corpuscular Volume 92 fL 80-97 Mean Corpuscular Hemoglobin 32 pg High 27-31 Mean Corpuscular HGB Conc 34 g/dL 31-36 Red Cell Distribution Width 12 % 10.5-15 Platelet Count 205 10^3/uL 150-450 Mean Platelet Volume 10 um3 7.4-10.4 Laboratory test 11/10/2015 [facility] TSH (Thyroid 1.30 ?IU/mL 0.34- 5.60 finding Stim Horm) Laboratory test 09/19/2015 [facility] HCG, Quant 81773.0 29 finding mIU/mL CBC 09/19/2015 [facility] White Blood 6.9 K/uL 3.1-10.7 Count Red Blood Count 4.29 M/uL 3.90-5.40 Hemoglobin 14.0 gm/dL 11.6-15.8 Hematocrit 39.1 % 36.0-46.1 Mean Cell Volume 91.1 fl 80.9-99.0 Mean Corpuscular HGB 32.6 pg 25.9-32.7 Mean Corpuscular HGB Conc 35.8 g/dL High 30.8-34.3 Platelet Count 193 K/uL 155-360 Red Cell Distri Width %CV 12.1 % 11.7-14.4 Mean Platelet Volume 11.3 fL 8.9-12.4 Urine Screen 09/19/2015 [facility] Urine Color DK YELLOW Yellow Urine Clarity SL CLOUDY Clear Urine Glucose - Dipstick NEGATIVE mg/dL Negative Urine Bilirubin - Dipstick SMALL High Negative Urine Ketone NEGATIVE mg/dL Negative Urine Specific Velma 1.010 1.010-1.030 Urine Blood TRACE Negative Urine PH 7.0 6.5-7.5 Urine Protein - Dipstick NEGATIVE mg/dL Negative Urine Urobilinogen - Dipstick 0.2 E.U./dL 0.2-1.0 Urine Nitrite - Dipstick NEGATIVE Negative Urine Leuk Esterase NEGATIVE Negative Type And Screen 09/19/2015 [facility] Patient Blood Type A NEG Antibody Screen Negative Negative Laboratory test finding 08/06/2015 [facility] HCG, Quant 776.0 mIU/mL 30 Comprehensive Metabolic Panel 08/06/2015 [facility] Glucose 76 mg/dL 74- 106 BUN 8 mg/dL 7-18 Creatinine 0.7 mg/dL 0.6-1.3 Glom Filtration Rate, Estimate >60 mL/min >60 If >60 mL/min >60 31 BUN/Creat 11.4 ratio Sodium 139 mmol/L 136-145 Potassium 3.9 mmol/L 3.5-5.1 Chloride 105 mmol/L 98-107 Carbon Dioxide 24 mmol/L 21-32 Anion Gap 10 mEq/L 8-16 Calcium 9.6 mg/dL 8.5-10.1 Total Protein 6.9 g/dL 6.4-8.2 Albumin 4.1 g/dL 3.4-5.0 Globulin 2.8 g/dL 1.9-4.3 Alb/Glob 1.5 ratio Bilirubin,Total 0.3 mg/dL 0.2-1.0 Sgot/Ast 10 U/L Low 15-37 32 SGPT/Alt 39 U/L 12-78 Alkaline Phosphatase 51 U/L 45-117 CBC W/Automated Diff 08/06/2015 [facility] White Blood Count 7.7 K/uL 3.1- 10.7 Red Blood Count 4.77 M/uL 3.90-5.40 Hemoglobin 14.9 gm/dL 11.6-15.8 Hematocrit 43.8 % 36.0-46.1 Mean Cell Volume 91.8 fl 80.9-99.0 Mean Corpuscular HGB 31.2 pg 25.9-32.7 Mean Corpuscular HGB Conc 34.0 g/dL 30.8-34.3 Platelet Count 241 K/uL 155-360 Red Cell Distri Width SD 41.9 fl 3-47 Red Cell Distri Width %CV 13.0 % 11.7-14.4 Mean Platelet Volume 11.8 fL 8.9-12.4 Neut% 64.7 % 40.4-72.8 Lymph % 26.5 % 17.0-46.1 Milam % 7.5 % 4.3-13.2 Eo% 1.0 % 0.0-6.6 Bas% 0.3 % 0.0-1.1 Neut# 4.98 K/uL 1.0-7.0 Lymph # 2.04 K/uL 1.8-7.0 Milam # 0.58 K/uL 0.3-0.9 Eos # 0.08 K/uL 0.0-0.5 Baso # 0.02 K/uL 0.0-0.1 Comprehensive Metabolic Panel 07/16/2015 [place] Glucose 75 mg/dL 74- 106 BUN 11 mg/dL 7-18 Creatinine 0.8 mg/dL 0.6-1.3 Glom Filtration Rate, Estimate >60 mL/min >60 If >60 mL/min >60 33 BUN/Creat 13.7 ratio Sodium 140 mmol/L 136-145 Potassium 3.9 mmol/L 3.5-5.1 Chloride 103 mmol/L 98-107 Carbon Dioxide 29 mmol/L 21-32 Anion Gap 8 mEq/L 8-16 Calcium 9.6 mg/dL 8.5-10.1 Total Protein 7.7 g/dL 6.4-8.2 Albumin 4.4 g/dL 3.4-5.0 Globulin 3.3 g/dL 1.9-4.3 Alb/Glob 1.3 ratio Bilirubin,Total 0.3 mg/dL 0.2-1.0 Sgot/Ast 12 U/L Low 15-37 34 SGPT/Alt 29 U/L 12-78 Alkaline Phosphatase 62 U/L 45-117 Chlamydia/GC [facility], Urine 07/16/2015 [place] Chlamydia/GC [facility], Urine See Note 35 Laboratory test finding 07/16/2015 [facility] Antibody Detection See Note 36 Genital Culture W/ Gram 07/16/2015 [facility] Gram Stain See Note 37 Stain Genital Culture See Note 38 CBS W/Automated Diff 07/16/2015 [facility] White Blood Count 7.2 K/uL 3.1- 10.7 Red Blood Count 4.86 M/uL 3.90-5.40 Hemoglobin 15.7 gm/dL 11.6-15.8 Hematocrit 44.9 % 36.0-46.1 Mean Cell Volume 92.4 fl 80.9-99.0 Mean Corpuscular HGB 32.3 pg 25.9-32.7 Mean Corpuscular HGB Conc 35.0 g/dL High 30.8-34.3 Platelet Count 267 K/uL 155-360 Red Cell Distri Width SD 42.3 fl 3-47 Red Cell Distri Width %CV 12.8 % 11.7-14.4 Mean Platelet Volume 11.9 fL 8.9-12.4 Neut% 64.9 % 40.4-72.8 Lymph % 25.9 % 17.0-46.1 Milam % 7.3 % 4.3-13.2 Eo% 1.5 % 0.0-6.6 Bas% 0.4 % 0.0-1.1 Neut# 4.65 K/uL 1.0-7.0 Lymph # 1.86 K/uL 1.8-7.0 Milam # 0.52 K/uL 0.3-0.9 Eos # 0.11 K/uL 0.0-0.5 Baso # 0.03 K/uL 0.0-0.1 Comprehensive Metabolic Panel 07/16/2015 [facility] Glucose 75 mg/dL 74- 106 BUN 11 mg/dL 7-18 Creatinine 0.8 mg/dL 0.6-1.3 Glom Filtration Rate, Estimate >60 mL/min >60 If >60 mL/min >60 39 BUN/Creat 13.7 ratio Sodium 140 mmol/L 136-145 Potassium 3.9 mmol/L 3.5-5.1 Chloride 103 mmol/L 98-107 Carbon Dioxide 29 mmol/L 21-32 Anion Gap 8 mEq/L 8-16 Calcium 9.6 mg/dL 8.5-10.1 Total Protein 7.7 g/dL 6.4-8.2 Albumin 4.4 g/dL 3.4-5.0 Globulin 3.3 g/dL 1.9-4.3 Alb/Glob 1.3 ratio Bilirubin,Total 0.3 mg/dL 0.2-1.0 Sgot/Ast 12 U/L Low 15-37 40 SGPT/Alt 29 U/L 12-78 Alkaline Phosphatase 62 U/L 45-117 Chlamydia/GC [facility], Urine 07/16/2015 [place] Chlamydia/GC [facility], Urine See Note 41 Laboratory test finding 07/16/2015 [place] Antibody Detection See Note 42 Genital Culture W/ Gram 07/16/2015 [facility] Gram Stain See Note 43 Stain Genital Culture See Note 44 CBS W/Automated Diff 07/16/2015 [facility] White Blood Count 7.2 K/uL 3.1- 10.7 Red Blood Count 4.86 M/uL 3.90-5.40 Hemoglobin 15.7 gm/dL 11.6-15.8 Hematocrit 44.9 % 36.0-46.1 Mean Cell Volume 92.4 fl 80.9-99.0 Mean Corpuscular HGB 32.3 pg 25.9-32.7 Mean Corpuscular HGB Conc 35.0 g/dL High 30.8-34.3 Platelet Count 267 K/uL 155-360 Red Cell Distri Width SD 42.3 fl 3-47 Red Cell Distri Width %CV 12.8 % 11.7-14.4 Mean Platelet Volume 11.9 fL 8.9-12.4 Neut% 64.9 % 40.4-72.8 Lymph % 25.9 % 17.0-46.1 Milam % 7.3 % 4.3-13.2 Eo% 1.5 % 0.0-6.6 Bas% 0.4 % 0.0-1.1 Neut# 4.65 K/uL 1.0-7.0 Lymph # 1.86 K/uL 1.8-7.0 Milam # 0.52 K/uL 0.3-0.9 Eos # 0.11 K/uL 0.0-0.5 Baso # 0.03 K/uL 0.0-0.1 Comprehensive Metabolic Panel 07/16/2015 [facility] Glucose 75 mg/dL 74- 106 BUN 11 mg/dL 7-18 Creatinine 0.8 mg/dL 0.6-1.3 Glom Filtration Rate, Estimate >60 mL/min >60 If >60 mL/min >60 45 BUN/Creat 13.7 ratio Sodium 140 mmol/L 136-145 Potassium 3.9 mmol/L 3.5-5.1 Chloride 103 mmol/L 98-107 Carbon Dioxide 29 mmol/L 21-32 Anion Gap 8 mEq/L 8-16 Calcium 9.6 mg/dL 8.5-10.1 Total Protein 7.7 g/dL 6.4-8.2 Albumin 4.4 g/dL 3.4-5.0 Globulin 3.3 g/dL 1.9-4.3 Alb/Glob 1.3 ratio Bilirubin,Total 0.3 mg/dL 0.2-1.0 Sgot/Ast 12 U/L Low 15-37 46 SGPT/Alt 29 U/L 12-78 Alkaline Phosphatase 62 U/L 45-117 Chlamydia/GC [facility], Urine 07/16/2015 [place] Chlamydia/GC [facility], Urine See Note 47 Laboratory test finding 07/16/2015 [place] Antibody Detection See Note 48 Genital Culture W/ Gram 07/16/2015 [facility] Gram Stain See Note 49 Stain Genital Culture See Note 50 CBS W/Automated Diff 07/16/2015 [facility] White Blood Count 7.2 K/uL 3.1- 10.7 Red Blood Count 4.86 M/uL 3.90-5.40 Hemoglobin 15.7 gm/dL 11.6-15.8 Hematocrit 44.9 % 36.0-46.1 Mean Cell Volume 92.4 fl 80.9-99.0 Mean Corpuscular HGB 32.3 pg 25.9-32.7 Mean Corpuscular HGB Conc 35.0 g/dL High 30.8-34.3 Platelet Count 267 K/uL 155-360 Red Cell Distri Width SD 42.3 fl 3-47 Red Cell Distri Width %CV 12.8 % 11.7-14.4 Mean Platelet Volume 11.9 fL 8.9-12.4 Neut% 64.9 % 40.4-72.8 Lymph % 25.9 % 17.0-46.1 Milam % 7.3 % 4.3-13.2 Eo% 1.5 % 0.0-6.6 Bas% 0.4 % 0.0-1.1 Neut# 4.65 K/uL 1.0-7.0 Lymph # 1.86 K/uL 1.8-7.0 Mil[place] # 0.52 K/uL 0.3-0.9 Eos # 0.11 K/uL 0.0-0.5 Baso # 0.03 K/uL 0.0-0.1 CBS W/Automated Diff 07/16/2015 [facility] White Blood Count 7.2 K/uL 3.1- 10.7 Red Blood Count 4.86 M/uL 3.90-5.40 Hemoglobin 15.7 gm/dL 11.6-15.8 Hematocrit 44.9 % 36.0-46.1 Mean Cell Volume 92.4 fl 80.9-99.0 Mean Corpuscular HGB 32.3 pg 25.9-32.7 Mean Corpuscular HGB Conc 35.0 g/dL High 30.8-34.3 Platelet Count 267 K/uL 155-360 Red Cell Distri Width SD 42.3 fl 3-47 Red Cell Distri Width %CV 12.8 % 11.7-14.4 Mean Platelet Volume 11.9 fL 8.9-12.4 Neut% 64.9 % 40.4-72.8 Lymph % 25.9 % 17.0-46.1 Milam % 7.3 % 4.3-13.2 Eo% 1.5 % 0.0-6.6 Bas% 0.4 % 0.0-1.1 Neut# 4.65 K/uL 1.0-7.0 Lymph # 1.86 K/uL 1.8-7.0 Milam # 0.52 K/uL 0.3-0.9 Eos # 0.11 K/uL 0.0-0.5 Baso # 0.03 K/uL 0.0-0.1 Genital Culture W/ Gram Stain 07/16/2015 [facility] Gram Stain See Note 51 Genital Culture See Note 52 Laboratory test finding 07/16/2015 [facility] Antibody Detection See Note 53 Chlamydia/GC [facility], Urine 07/16/2015 [facility] Chlamydia/GC [facility], See Note 54 Urine Comprehensive Metabolic 07/16/2015 [facility] Glucose 75 mg/dL 74-106 Panel BUN 11 mg/dL 7-18 Creatinine 0.8 mg/dL 0.6-1.3 Glom Filtration Rate, Estimate >60 mL/min >60 If >60 mL/min >60 55 BUN/Creat 13.7 ratio Sodium 140 mmol/L 136-145 Potassium 3.9 mmol/L 3.5-5.1 Chloride 103 mmol/L 98-107 Carbon Dioxide 29 mmol/L 21-32 Anion Gap 8 mEq/L 8-16 Calcium 9.6 mg/dL 8.5-10.1 Total Protein 7.7 g/dL 6.4-8.2 Albumin 4.4 g/dL 3.4-5.0 Globulin 3.3 g/dL 1.9-4.3 Alb/Glob 1.3 ratio Bilirubin,Total 0.3 mg/dL 0.2-1.0 Sgot/Ast 12 U/L Low 15-37 56 SGPT/Alt 29 U/L 12-78 Alkaline Phosphatase 62 U/L 45-117 CBS W/Automated Diff 07/16/2015 [facility] White Blood Count 7.2 K/uL 3.1- 10.7 Red Blood Count 4.86 M/uL 3.90-5.40 Hemoglobin 15.7 gm/dL 11.6-15.8 Hematocrit 44.9 % 36.0-46.1 Mean Cell Volume 92.4 fl 80.9-99.0 Mean Corpuscular HGB 32.3 pg 25.9-32.7 Mean Corpuscular HGB Conc 35.0 g/dL High 30.8-34.3 Platelet Count 267 K/uL 155-360 Red Cell Distri Width SD 42.3 fl 3-47 Red Cell Distri Width %CV 12.8 % 11.7-14.4 Mean Platelet Volume 11.9 fL 8.9-12.4 Neut% 64.9 % 40.4-72.8 Lymph % 25.9 % 17.0-46.1 Milam % 7.3 % 4.3-13.2 Eo% 1.5 % 0.0-6.6 Bas% 0.4 % 0.0-1.1 Neut# 4.65 K/uL 1.0-7.0 Lymph # 1.86 K/uL 1.8-7.0 Mil[place] # 0.52 K/uL 0.3-0.9 Eos # 0.11 K/uL 0.0-0.5 Baso # 0.03 K/uL 0.0-0.1 Genital Culture W/ Gram Stain 07/16/2015 [facility] Gram Stain See Note 57 Genital Culture See Note 58 Laboratory test finding 07/16/2015 [place] Antibody Detection See Note 59 Chlamydia/GC [facility], Urine 07/16/2015 [place] Chlamydia/GC [facility], See Note 60 Urine Comprehensive Metabolic 07/16/2015 [facility] Glucose 75 mg/dL 74-106 Panel BUN 11 mg/dL 7-18 Creatinine 0.8 mg/dL 0.6-1.3 Glom Filtration Rate, Estimate >60 mL/min >60 If >60 mL/min >60 61 BUN/Creat 13.7 ratio Sodium 140 mmol/L 136-145 Potassium 3.9 mmol/L 3.5-5.1 Chloride 103 mmol/L 98-107 Carbon Dioxide 29 mmol/L 21-32 Anion Gap 8 mEq/L 8-16 Calcium 9.6 mg/dL 8.5-10.1 Total Protein 7.7 g/dL 6.4-8.2 Albumin 4.4 g/dL 3.4-5.0 Globulin 3.3 g/dL 1.9-4.3 Alb/Glob 1.3 ratio Bilirubin,Total 0.3 mg/dL 0.2-1.0 Sgot/Ast 12 U/L Low 15-37 62 SGPT/Alt 29 U/L 12-78 Alkaline Phosphatase 62 U/L 45-117 CBS W/Automated Diff 07/16/2015 [facility] White Blood Count 7.2 K/uL 3.1- 10.7 Red Blood Count 4.86 M/uL 3.90-5.40 Hemoglobin 15.7 gm/dL 11.6-15.8 Hematocrit 44.9 % 36.0-46.1 Mean Cell Volume 92.4 fl 80.9-99.0 Mean Corpuscular HGB 32.3 pg 25.9-32.7 Mean Corpuscular HGB Conc 35.0 g/dL High 30.8-34.3 Platelet Count 267 K/uL 155-360 Red Cell Distri Width SD 42.3 fl 3-47 Red Cell Distri Width %CV 12.8 % 11.7-14.4 Mean Platelet Volume 11.9 fL 8.9-12.4 Neut% 64.9 % 40.4-72.8 Lymph % 25.9 % 17.0-46.1 Milam % 7.3 % 4.3-13.2 Eo% 1.5 % 0.0-6.6 Bas% 0.4 % 0.0-1.1 Neut# 4.65 K/uL 1.0-7.0 Lymph # 1.86 K/uL 1.8-7.0 Mil[place] # 0.52 K/uL 0.3-0.9 Eos # 0.11 K/uL 0.0-0.5 Baso # 0.03 K/uL 0.0-0.1 Genital Culture W/ Gram Stain 07/16/2015 [facility] Gram Stain See Note 63 Genital Culture See Note 64 Laboratory test 07/16/2015 [facility] Antibody Detection See Note 65 finding Panel [id number] 07/16/2015 [facility] Panel [id number] See Note 66 CBS W/Automated Diff 07/16/2015 [facility] White Blood Count 7.2 K/uL 3.1- 10.7 Red Blood Count 4.86 M/uL 3.90-5.40 Hemoglobin 15.7 gm/dL 11.6-15.8 Hematocrit 44.9 % 36.0-46.1 Mean Cell Volume 92.4 fl 80.9-99.0 Mean Corpuscular HGB 32.3 pg 25.9-32.7 Mean Corpuscular HGB Conc 35.0 g/dL High 30.8-34.3 Platelet Count 267 K/uL 155-360 Red Cell Distri Width SD 42.3 fl 3-47 Red Cell Distri Width %CV 12.8 % 11.7-14.4 Mean Platelet Volume 11.9 fL 8.9-12.4 Neut% 64.9 % 40.4-72.8 Lymph % 25.9 % 17.0-46.1 Milam % 7.3 % 4.3-13.2 Eo% 1.5 % 0.0-6.6 Bas% 0.4 % 0.0-1.1 Neut# 4.65 K/uL 1.0-7.0 Lymph # 1.86 K/uL 1.8-7.0 [place] # 0.52 K/uL 0.3-0.9 Eos # 0.11 K/uL 0.0-0.5 Baso # 0.03 K/uL 0.0-0.1 Comprehensive Metabolic Panel 07/16/2015 [facility] Glucose 75 mg/dL 74- 106 BUN 11 mg/dL 7-18 Creatinine 0.8 mg/dL 0.6-1.3 Glom Filtration Rate, Estimate >60 mL/min >60 If >60 mL/min >60 67 BUN/Creat 13.7 ratio Sodium 140 mmol/L 136-145 Potassium 3.9 mmol/L 3.5-5.1 Chloride 103 mmol/L 98-107 Carbon Dioxide 29 mmol/L 21-32 Anion Gap 8 mEq/L 8-16 Calcium 9.6 mg/dL 8.5-10.1 Total Protein 7.7 g/dL 6.4-8.2 Albumin 4.4 g/dL 3.4-5.0 Globulin 3.3 g/dL 1.9-4.3 Alb/Glob 1.3 ratio Bilirubin,Total 0.3 mg/dL 0.2-1.0 Sgot/Ast 12 U/L Low 15-37 68 SGPT/Alt 29 U/L 12-78 Alkaline Phosphatase 62 U/L 45-117 Chlamydia/GC [facility], Urine 07/16/2015 [place] Chlamydia/GC [facility], Urine See Note 69 Laboratory test finding 07/16/2015 [place] Antibody Detection See Note 70 Genital Culture W/ Gram 07/16/2015 [facility] Gram Stain See Note 71 Stain Genital Culture See Note 72 CBS W/Automated Diff 07/16/2015 [facility] White Blood Count 7.2 K/uL 3.1- 10.7 Red Blood Count 4.86 M/uL 3.90-5.40 Hemoglobin 15.7 gm/dL 11.6-15.8 Hematocrit 44.9 % 36.0-46.1 Mean Cell Volume 92.4 fl 80.9-99.0 Mean Corpuscular HGB 32.3 pg 25.9-32.7 Mean Corpuscular HGB Conc 35.0 g/dL High 30.8-34.3 Platelet Count 267 K/uL 155-360 Red Cell Distri Width SD 42.3 fl 3-47 Red Cell Distri Width %CV 12.8 % 11.7-14.4 Mean Platelet Volume 11.9 fL 8.9-12.4 Neut% 64.9 % 40.4-72.8 Lymph % 25.9 % 17.0-46.1 Milam % 7.3 % 4.3-13.2 Eo% 1.5 % 0.0-6.6 Bas% 0.4 % 0.0-1.1 Neut# 4.65 K/uL 1.0-7.0 Lymph # 1.86 K/uL 1.8-7.0 [place] # 0.52 K/uL 0.3-0.9 Eos # 0.11 K/uL 0.0-0.5 Baso # 0.03 K/uL 0.0-0.1 Comprehensive Metabolic Panel 07/16/2015 [facility] Glucose 75 mg/dL 74- 106 BUN 11 mg/dL 7-18 Creatinine 0.8 mg/dL 0.6-1.3 Glom Filtration Rate, Estimate >60 mL/min >60 If >60 mL/min >60 73 BUN/Creat 13.7 ratio Sodium 140 mmol/L 136-145 Potassium 3.9 mmol/L 3.5-5.1 Chloride 103 mmol/L 98-107 Carbon Dioxide 29 mmol/L 21-32 Anion Gap 8 mEq/L 8-16 Calcium 9.6 mg/dL 8.5-10.1 Total Protein 7.7 g/dL 6.4-8.2 Albumin 4.4 g/dL 3.4-5.0 Globulin 3.3 g/dL 1.9-4.3 Alb/Glob 1.3 ratio Bilirubin,Total 0.3 mg/dL 0.2-1.0 Sgot/Ast 12 U/L Low 15-37 74 SGPT/Alt 29 U/L 12-78 Alkaline Phosphatase 62 U/L 45-117 Chlamydia/GC [facility], Urine 07/16/2015 [place] Chlamydia/GC [facility], Urine See Note 75 Laboratory test finding 07/16/2015 [place] Antibody Detection See Note 76 Genital Culture W/ Gram 07/16/2015 [facility] Gram Stain See Note 77 Stain Genital Culture See Note 78 Genital Culture W/ Gram 07/16/2015 [facility] Genital Culture W/ Gram See Note 79 Stain Stain Gram Stain See Note 80 Genital Culture See Note 81 Laboratory test 07/16/2015 [place] Antibody Detection See Note 82 finding Chlamydia/GC [facility], 07/16/2015 [place] Chlamydia/GC [facility], See Note 83 Urine Urine CBC W/Automated Diff 07/16/2015 [facility] White Blood Count 7.2 K/uL 3.1- 10.7 Red Blood Count 4.86 M/uL 3.90-5.40 Hemoglobin 15.7 gm/dL 11.6-15.8 Hematocrit 44.9 % 36.0-46.1 Mean Cell Volume 92.4 fl 80.9-99.0 Mean Corpuscular HGB 32.3 pg 25.9-32.7 Mean Corpuscular HGB Conc 35.0 g/dL High 30.8-34.3 Platelet Count 267 K/uL 155-360 Red Cell Distri Width SD 42.3 fl 3-47 Red Cell Distri Width %CV 12.8 % 11.7-14.4 Mean Platelet Volume 11.9 fL 8.9-12.4 Neut% 64.9 % 40.4-72.8 Lymph % 25.9 % 17.0-46.1 Mil[place] % 7.3 % 4.3-13.2 Eo% 1.5 % 0.0-6.6 Bas% 0.4 % 0.0-1.1 Neut# 4.65 K/uL 1.0-7.0 Lymph # 1.86 K/uL 1.8-7.0 [place] # 0.52 K/uL 0.3-0.9 Eos # 0.11 K/uL 0.0-0.5 Baso # 0.03 K/uL 0.0-0.1 Comprehensive Metabolic Panel 07/16/2015 [facility] Glucose 75 mg/dL 74- 106 BUN 11 mg/dL 7-18 Creatinine 0.8 mg/dL 0.6-1.3 Glom Filtration Rate, Estimate >60 mL/min >60 If >60 mL/min >60 84 BUN/Creat 13.7 ratio Sodium 140 mmol/L 136-145 Potassium 3.9 mmol/L 3.5-5.1 Chloride 103 mmol/L 98-107 Carbon Dioxide 29 mmol/L 21-32 Anion Gap 8 mEq/L 8-16 Calcium 9.6 mg/dL 8.5-10.1 Total Protein 7.7 g/dL 6.4-8.2 Albumin 4.4 g/dL 3.4-5.0 Globulin 3.3 g/dL 1.9-4.3 Alb/Glob 1.3 ratio Bilirubin,Total 0.3 mg/dL 0.2-1.0 Sgot/Ast 12 U/L Low 15-37 85 SGPT/Alt 29 U/L 12-78 Alkaline Phosphatase 62 U/L 45-117 Chlamydia/GC [facility], 07/16/2015 [facility] Chlamydia/GC [facility], See Note 86 Urine Urine Comprehensive 07/16/2015 [facility] Glucose 75 mg/dL 74-106 Metabolic Panel BUN 11 mg/dL 7-18 Creatinine 0.8 mg/dL 0.6-1.3 Glom Filtration Rate, Estimate >60 mL/min >60 If >60 mL/min >60 87 BUN/Creat 13.7 ratio Sodium 140 mmol/L 136-145 Potassium 3.9 mmol/L 3.5-5.1 Chloride 103 mmol/L 98-107 Carbon Dioxide 29 mmol/L 21-32 Anion Gap 8 mEq/L 8-16 Calcium 9.6 mg/dL 8.5-10.1 Total Protein 7.7 g/dL 6.4-8.2 Albumin 4.4 g/dL 3.4-5.0 Globulin 3.3 g/dL 1.9-4.3 Alb/Glob 1.3 ratio Bilirubin,Total 0.3 mg/dL 0.2-1.0 Sgot/Ast 12 U/L Low 15-37 88 SGPT/Alt 29 U/L 12-78 Alkaline Phosphatase 62 U/L 45-117 CBS W/Automated Diff 07/16/2015 [facility] White Blood Count 7.2 K/uL 3.1- 10.7 Red Blood Count 4.86 M/uL 3.90-5.40 Hemoglobin 15.7 gm/dL 11.6-15.8 Hematocrit 44.9 % 36.0-46.1 Mean Cell Volume 92.4 fl 80.9-99.0 Mean Corpuscular HGB 32.3 pg 25.9-32.7 Mean Corpuscular HGB Conc 35.0 g/dL High 30.8-34.3 Platelet Count 267 K/uL 155-360 Red Cell Distri Width SD 42.3 fl 3-47 Red Cell Distri Width %CV 12.8 % 11.7-14.4 Mean Platelet Volume 11.9 fL 8.9-12.4 Neut% 64.9 % 40.4-72.8 Lymph % 25.9 % 17.0-46.1 Milam % 7.3 % 4.3-13.2 Eo% 1.5 % 0.0-6.6 Bas% 0.4 % 0.0-1.1 Neut# 4.65 K/uL 1.0-7.0 Lymph # 1.86 K/uL 1.8-7.0 [place] # 0.52 K/uL 0.3-0.9 Eos # 0.11 K/uL 0.0-0.5 Baso # 0.03 K/uL 0.0-0.1 Comprehensive Metabolic Panel 07/16/2015 [facility] Glucose 75 mg/dL 74- 106 BUN 11 mg/dL 7-18 Creatinine 0.8 mg/dL 0.6-1.3 Glom Filtration Rate, Estimate >60 mL/min >60 If >60 mL/min >60 89 BUN/Creat 13.7 ratio Sodium 140 mmol/L 136-145 Potassium 3.9 mmol/L 3.5-5.1 Chloride 103 mmol/L 98-107 Carbon Dioxide 29 mmol/L 21-32 Anion Gap 8 mEq/L 8-16 Calcium 9.6 mg/dL 8.5-10.1 Total Protein 7.7 g/dL 6.4-8.2 Albumin 4.4 g/dL 3.4-5.0 Globulin 3.3 g/dL 1.9-4.3 Alb/Glob 1.3 ratio Bilirubin,Total 0.3 mg/dL 0.2-1.0 Sgot/Ast 12 U/L Low 15-37 90 SGPT/Alt 29 U/L 12-78 Alkaline Phosphatase 62 U/L 45-117 Chlamydia/GC [facility], Urine 07/16/2015 [place] Chlamydia/GC [facility], Urine See Note 91 Laboratory test finding 07/16/2015 [place] Antibody Detection See Note 92 Genital Culture W/ Gram 07/16/2015 [facility] Gram Stain See Note 93 Stain Genital Culture See Note 94 CBS W/Automated Diff 07/16/2015 [facility] White Blood Count 7.2 K/uL 3.1- 10.7 Red Blood Count 4.86 M/uL 3.90-5.40 Hemoglobin 15.7 gm/dL 11.6-15.8 Hematocrit 44.9 % 36.0-46.1 Mean Cell Volume 92.4 fl 80.9-99.0 Mean Corpuscular HGB 32.3 pg 25.9-32.7 Mean Corpuscular HGB Conc 35.0 g/dL High 30.8-34.3 Platelet Count 267 K/uL 155-360 Red Cell Distri Width SD 42.3 fl 3-47 Red Cell Distri Width %CV 12.8 % 11.7-14.4 Mean Platelet Volume 11.9 fL 8.9-12.4 Neut% 64.9 % 40.4-72.8 Lymph % 25.9 % 17.0-46.1 Milam % 7.3 % 4.3-13.2 Eo% 1.5 % 0.0-6.6 Bas% 0.4 % 0.0-1.1 Neut# 4.65 K/uL 1.0-7.0 Lymph # 1.86 K/uL 1.8-7.0 [place] # 0.52 K/uL 0.3-0.9 Eos # 0.11 K/uL 0.0-0.5 Baso # 0.03 K/uL 0.0-0.1 Comprehensive Metabolic Panel 07/16/2015 [facility] Glucose 75 mg/dL 74- 106 BUN 11 mg/dL 7-18 Creatinine 0.8 mg/dL 0.6-1.3 Glom Filtration Rate, Estimate >60 mL/min >60 If >60 mL/min >60 95 BUN/Creat 13.7 ratio Sodium 140 mmol/L 136-145 Potassium 3.9 mmol/L 3.5-5.1 Chloride 103 mmol/L 98-107 Carbon Dioxide 29 mmol/L 21-32 Anion Gap 8 mEq/L 8-16 Calcium 9.6 mg/dL 8.5-10.1 Total Protein 7.7 g/dL 6.4-8.2 Albumin 4.4 g/dL 3.4-5.0 Globulin 3.3 g/dL 1.9-4.3 Alb/Glob 1.3 ratio Bilirubin,Total 0.3 mg/dL 0.2-1.0 Sgot/Ast 12 U/L Low 15-37 96 SGPT/Alt 29 U/L 12-78 Alkaline Phosphatase 62 U/L 45-117 Chlamydia/GC [facility], Urine 07/16/2015 [place] Chlamydia/GC [facility], Urine See Note 97 Laboratory test finding 07/16/2015 [place] Antibody Detection See Note 98 Genital Culture W/ Gram 07/16/2015 [facility] Gram Stain See Note 99 Stain Genital Culture See Note 100 CBS W/Automated Diff 07/16/2015 [facility] White Blood Count 7.2 K/uL 3.1- 10.7 Red Blood Count 4.86 M/uL 3.90-5.40 Hemoglobin 15.7 gm/dL 11.6-15.8 Hematocrit 44.9 % 36.0-46.1 Mean Cell Volume 92.4 fl 80.9-99.0 Mean Corpuscular HGB 32.3 pg 25.9-32.7 Mean Corpuscular HGB Conc 35.0 g/dL High 30.8-34.3 Platelet Count 267 K/uL 155-360 Red Cell Distri Width SD 42.3 fl 3-47 Red Cell Distri Width %CV 12.8 % 11.7-14.4 Mean Platelet Volume 11.9 fL 8.9-12.4 Neut% 64.9 % 40.4-72.8 Lymph % 25.9 % 17.0-46.1 Mil[place] % 7.3 % 4.3-13.2 Eo% 1.5 % 0.0-6.6 Bas% 0.4 % 0.0-1.1 Neut# 4.65 K/uL 1.0-7.0 Lymph # 1.86 K/uL 1.8-7.0 [place] # 0.52 K/uL 0.3-0.9 Eos # 0.11 K/uL 0.0-0.5 Baso # 0.03 K/uL 0.0-0.1 Comprehensive Metabolic Panel 07/16/2015 [facility] Glucose 75 mg/dL 74- 106 BUN 11 mg/dL 7-18 Creatinine 0.8 mg/dL 0.6-1.3 Glom Filtration Rate, Estimate >60 mL/min >60 If >60 mL/min >60 101 BUN/Creat 13.7 ratio Sodium 140 mmol/L 136-145 Potassium 3.9 mmol/L 3.5-5.1 Chloride 103 mmol/L 98-107 Carbon Dioxide 29 mmol/L 21-32 Anion Gap 8 mEq/L 8-16 Calcium 9.6 mg/dL 8.5-10.1 Total Protein 7.7 g/dL 6.4-8.2 Albumin 4.4 g/dL 3.4-5.0 Globulin 3.3 g/dL 1.9-4.3 Alb/Glob 1.3 ratio Bilirubin,Total 0.3 mg/dL 0.2-1.0 Sgot/Ast 12 U/L Low 15-37 102 SGPT/Alt 29 U/L 12-78 Alkaline Phosphatase 62 U/L 45-117 Chlamydia/GC [facility], Urine 07/16/2015 [place] Chlamydia/GC [facility], Urine See Note 103 Laboratory test finding 07/16/2015 [facility] Antibody Detection See Note 104 Genital Culture W/ Gram 07/16/2015 [facility] Gram Stain See Note 105 Stain Genital Culture See Note 106 CBS W/Automated Diff 07/16/2015 [facility] White Blood Count 7.2 K/uL 3.1- 10.7 Red Blood Count 4.86 M/uL 3.90-5.40 Hemoglobin 15.7 gm/dL 11.6-15.8 Hematocrit 44.9 % 36.0-46.1 Mean Cell Volume 92.4 fl 80.9-99.0 Mean Corpuscular HGB 32.3 pg 25.9-32.7 Mean Corpuscular HGB Conc 35.0 g/dL High 30.8-34.3 Platelet Count 267 K/uL 155-360 Red Cell Distri Width SD 42.3 fl 3-47 Red Cell Distri Width %CV 12.8 % 11.7-14.4 Mean Platelet Volume 11.9 fL 8.9-12.4 Neut% 64.9 % 40.4-72.8 Lymph % 25.9 % 17.0-46.1 Milam % 7.3 % 4.3-13.2 Eo% 1.5 % 0.0-6.6 Bas% 0.4 % 0.0-1.1 Neut# 4.65 K/uL 1.0-7.0 Lymph # 1.86 K/uL 1.8-7.0 Milam # 0.52 K/uL 0.3-0.9 Eos # 0.11 K/uL 0.0-0.5 Baso # 0.03 K/uL 0.0-0.1 Comprehensive Metabolic Panel 07/16/2015 [facility] Glucose 75 mg/dL 74- 106 BUN 11 mg/dL 7-18 Creatinine 0.8 mg/dL 0.6-1.3 Glom Filtration Rate, Estimate >60 mL/min >60 If >60 mL/min >60 107 BUN/Creat 13.7 ratio Sodium 140 mmol/L 136-145 Potassium 3.9 mmol/L 3.5-5.1 Chloride 103 mmol/L 98-107 Carbon Dioxide 29 mmol/L 21-32 Anion Gap 8 mEq/L 8-16 Calcium 9.6 mg/dL 8.5-10.1 Total Protein 7.7 g/dL 6.4-8.2 Albumin 4.4 g/dL 3.4-5.0 Globulin 3.3 g/dL 1.9-4.3 Alb/Glob 1.3 ratio Bilirubin,Total 0.3 mg/dL 0.2-1.0 Sgot/Ast 12 U/L Low 15-37 108 SGPT/Alt 29 U/L 12-78 Alkaline Phosphatase 62 U/L 45-117 Chlamydia/GC [facility], Urine 07/16/2015 [facility] Chlamydia/GC Charisse, Urine See Note 109 Laboratory test finding 07/16/2015 [facility] Antibody Detection See Note 110 Genital Culture W/ Gram 07/16/2015 [facility] Gram Stain See Note 111 Stain Genital Culture See Note 112 Laboratory test 06/01/2015 [facility] Urine Culture SEE RESULT 113 finding BELOW Laboratory test 01/19/2015 [facility] HCG, Quant 5.0 mIU/mL 114 finding CBS W/Automated 01/19/2015 [facility] White Blood 8.1 K/uL 3.1-10. Diff Count 7 Red Blood Count 4.73 M/uL 3.90-5.40 Hemoglobin 14.5 gm/dL 11.6-15.8 Hematocrit 41.6 % 36.0-46.1 Mean Cell Volume 87.9 fl 80.9-99.0 Mean Corpuscular HGB 30.7 pg 25.9-32.7 Mean Corpuscular HGB Conc 34.9 g/dL High 30.8-34.3 Platelet Count 209 K/uL 155-360 Red Cell Distri Width SD 38.2 fl 3-47 Red Cell Distri Width %CV 12.0 % 11.7-14.4 Mean Platelet Volume 11.5 fL 8.9-12.4 Neut% 68.3 % 40.4-72.8 Lymph % 22.5 % 17.0-46.1 Milam % 7.8 % 4.3-13.2 Eo% 1.0 % 0.0-6.6 Bas% 0.4 % 0.0-1.1 Neut# 5.55 K/uL 1.0-7.0 Lymph # 1.83 K/uL 1.8-7.0 Milam # 0.63 K/uL 0.3-0.9 Eos # 0.08 K/uL 0.0-0.5 Baso # 0.03 K/uL 0.0-0.1 Type And Screen 01/19/2015 [facility] Patient Blood Type A NEG Antibody Screen Negative Negative Laboratory test 01/19/2015 [facility] RhIMMUNE Globulin See Note 115 finding 26-28 Weeks Chlamydia/GC 01/19/2015 [facility] Chlamydia Negative Negative Amplification Trachomatis, [facility] Neisseria Gonorrhoeae, [facility] Negative Negative Please note: See Note 116 Laboratory test 01/19/2015 [facility] Urine HCG NEGATIVE Negative 117 finding (Qualitative) Urinalysis With 01/19/2015 [facility] Urine Color LIGHT BROWN Yellow Microscopic Urine Clarity SL CLOUDY Clear Urine Glucose - Dipstick NEGATIVE mg/dL Negative Urine Bilirubin - Dipstick NEGATIVE Negative Urine Ketone NEGATIVE mg/dL Negative Urine Specific Velma >=1.030 1.010-1.030 Urine Blood LARGE High Negative Urine PH 6.0 Low 6.5-7.5 Urine Protein - Dipstick NEGATIVE mg/dL Negative Urine Urobilinogen - Dipstick 0.2 E.U./dL 0.2-1.0 Urine Nitrite - Dipstick NEGATIVE Negative Urine Leuk Esterase NEGATIVE Negative Urine RBC >50 rbc/hpf High 0-7 Urine WBC 0-2 wbc/hpf 0-7 Urine Epithelial Cells FEW NONESEEN/lpf Urine Bacteria VERY FEW NONESEEN Affirm 01/19/2015 [facility] Trichomonas vaginalis Negative [Negative] Gardnerella vaginalis Negative [Negative] Vania species Negative [Negative] Urine Screen 01/19/2015 [facility] Urine Screen See Note 118 Comprehensive Metabolic Panel 01/17/2015 [facility] Glucose 87 mg/dL 74- 106 BUN 11 mg/dL 7-18 Creatinine 0.9 mg/dL 0.6-1.3 Glom Filtration Rate, Estimate >60 mL/min >60 If >60 mL/min >60 119 BUN/Creat 12.2 ratio Sodium 139 mmol/L 136-145 Potassium 3.8 mmol/L 3.5-5.1 Chloride 106 mmol/L 98-107 Carbon Dioxide 29 mmol/L 21-32 Anion Gap 4 mEq/L Low 8-16 Calcium 9.1 mg/dL 8.5-10.1 Total Protein 7.2 g/dL 6.4-8.2 Albumin 4.4 g/dL 3.4-5.0 Globulin 2.8 g/dL 1.9-4.3 Alb/Glob 1.6 ratio Bilirubin,Total 0.3 mg/dL 0.2-1.0 Sgot/Ast 18 U/L 15-37 SGPT/Alt 32 U/L 12-78 Alkaline Phosphatase 57 U/L 45-117 CBC W/Automated Diff 01/17/2015 [facility] White Blood Count 8.3 K/uL 3.1- 10.7 Red Blood Count 4.80 M/uL 3.90-5.40 Hemoglobin 14.8 gm/dL 11.6-15.8 Hematocrit 42.7 % 36.0-46.1 Mean Cell Volume 89.0 fl 80.9-99.0 Mean Corpuscular HGB 30.8 pg 25.9-32.7 Mean Corpuscular HGB Conc 34.7 g/dL High 30.8-34.3 Platelet Count 241 K/uL 155-360 Red Cell Distri Width SD 39.3 fl 3-47 Red Cell Distri Width %CV 12.2 % 11.7-14.4 Mean Platelet Volume 12.4 fL 8.9-12.4 Neut% 66.4 % 40.4-72.8 Lymph % 24.7 % 17.0-46.1 Milam % 7.7 % 4.3-13.2 Eo% 0.8 % 0.0-6.6 Bas% 0.4 % 0.0-1.1 Neut# 5.53 K/uL 1.0-7.0 Lymph # 2.06 K/uL 1.8-7.0 Milam # 0.64 K/uL 0.3-0.9 Eos # 0.07 K/uL 0.0-0.5 Baso # 0.03 K/uL 0.0-0.1 Laboratory test 01/17/2015 [facility] HCG, Quant 25.0 mIU/mL 120 finding Throat Culture 09/30/2014 [facility] Throat Culture See Note 121 Complete Complete Laboratory test 08/05/2014 [facility] Beta HCG < 0.60 0.0-5 122, 123 finding Quantitative IU/mL .0 1 NORMAL KIDNEY FUNCTION OR MILD DISEASE - GFR >OR=60 CHRONIC KIDNEY DISEASE - GFR 15 - 59 RENAL FAILURE - GFR <15 Est. GFR calculation based on the MDRD study equation, which assumes a steady state for creatinine. Est. GFR should not be used for medication dosing. 2 Performed using [employer] immunoassay. Care must be taken when interpreting HbA1c results in patients with a hemoglobin variant or decreased erythrocyte lifespan. Values 5.7 - 6.4% suggest prediabetes. Values >=6.5% are diagnostic for diabetes. REFERENCE: DIABETES CARE 2018: 41(S13-S27). 3 PER NCEP ATP III GUIDELINES: RESULTS LOWER THAN 40 MG/DL ARE SUGGESTIVE OF INCREASED RISK FOR CORONARY ARTERY DISEASE. RESULTS > OR=TO 60 MG/DL ARE CONSIDERED A NEGATIVE RISK FACTOR. 4 INTERPRETATION OF CHOL-HDL RATIO CHD RISK FEMALE MALE VERY HIGH >8.3 >14.3 HIGH 5.6- 8.3 6.7- 14.3 AVERAGE 3.7- 5.6 4.0- 6.7 BELOW AVERAGE 2.5- 3.7 2.7- 4.0 PROTECTED <2.5 <2.7 5 PER NCEP ATP III GUIDELINES: OPTIMAL < 100 NEAR OPTIMAL 100 - 129 BORDERLINE HIGH 130 - 159 HIGH 160 - 189 VERY HIGH > 189 6 [id number] 7 SEE RESULT BELOW Name: MECCA VIEIRA : [address]: Nithin Guzman MD Acct: [id number] Unit: [id number] AGE: 27 Location: [facility] Re04/13/18 SEX: F Status: DEP ER SPEC: [id number] FAZAL: 04/13/18-[address] [facility] DR: Nithin Guzman MD REQ: [id number] RECD: 04/13/18-1037 STATUS: JORDI BRASWELL DR: Ahmamary[facility] _ SOURCE: URINE SPDES: ORDERED: Urine Culture COMMENTS: [id number] Procedure Result Reported Site Urine Culture Final 04/15/18- 0903 ML Organism 1 ESCHERICHIA COLI [place] Count >100,000 (Many) CFU/ML 1. ESCHERICHIA COLI M.I.C. RX --------- ------ Ampicillin >=32 R Cefazolin <=4 S Cefepime <=1 S Ceftriaxone <=1 S Ciprofloxacin <=0.25 S Gentamicin <=1 S Levofloxacin <=0.12 S Meropenem <=0.25 S Nitrofurantoin <=16 S Tetracycline <=1 S Pipercillin/Tazobactam <=4 S Trimethoprim/Sulfamethoxazole <=20 S Amoxicillin/Clavulanic Acid 8 S Aztreonam <=1 S Contact the Microbiology Department for any additional antibiotic reporting. * ML - Main Lab . END OF REPORT DEPARTMENT OF PATHOLOGY, [address] [place] [id number] Jama Butler M.D. Director [facility] # [id number] Repairer Screen Crusher: [id number] CONSULT [id number] 10 MIXED URETHRAL BROCK 11 > 100,000 CFU/mL SPECIMEN IS A MIX OF GRAM POSITIVE ORGANISMS CONSISTENT WITH SKIN VAGINAL CONTAMINATION. SUGGEST REPEAT SPECIMEN IF CLINICALLY INDICATED. 12 Approximate Gestational Age and Total BHCG Range: 0.2 - 1 Week........................5-50 mIU/mL 1 - 2 Weeks.....................50-500 mIU/mL 2 - 3 Weeks..................100-5,000 mIU/mL 3 - 4 Weeks.................500-10,000 mIU/mL 4 - 5 Weeks...............1,000-50,000 mIU/mL 5 - 6 Weeks.............10,000-100,000 mIU/mL 6 - 8 Weeks.............15,000-200,000 mIU/mL 2 - 3 Months............10,000-100,000 mIU/mL 13 POSSIBLE UROGENITAL CONTAMINATION. 14 URINE, CLEAN CATCH 15 CTXS 16 Blood Type A NEG 17 LABOR DUE DEC 13 18 CONTRACTIONS 19 Please Note: A nonreactive test result does not exclude the possibility of exposure to, or infection with syphilis. T. pallidum antibodies may be undetectable in some stages of the infection and in some clinical conditions. 20 Blood Type A NEG 21 URINE, CLEAN CATCH 22 36 WEEKS CONTRACTIONS 6-7 MINUTES APART 23 POSSIBLE UROGENITAL CONTAMINATION. 24 URINE, CLEAN CATCH 25 MIXED URETHRAL BROCK 26 > 100,000 CFU/mL SPECIMEN IS A MIX OF ORGANISMS CONSISTENT WITH SKIN VAGINAL CONTAMINATION. SUGGEST REPEAT SPECIMEN IF CLINICALLY INDICATED. 27 SPECIMEN DESCRIPTION BLADDER URINE CULTURE RESULTS >100,000 CFU/ML LACTOBACILLUS SPECIES WITH <10,000 CFU/ML REPRESENTING URETHRAL BROCK NOTE: LACTOBACILLI USUALLY REPRESENT NORMAL UROGENITAL BROCK AND ARE A VERY RARE CAUSE OF A UTI. LABORATORY METHODS ARE NOT CURRENTLY AVAILABLE FOR PERFORMING ANTIBIOTIC SUSCEPTIBILITY TESTING FOR THIS ORGANISM. REPORT STATUS FINAL 07/16/2016 28 FIRST MORNING SPECIMENS GENERALLY CONTAIN THE HIGHEST CONCENTRATION OF HCG AND ARE RECOMMENDED FOR EARLY DETECTION OF . 29 Approximate Gestational Age and Total BHCG Range: 0.2 - 1 Week........................5-50 mIU/mL 1 - 2 Weeks.....................50-500 mIU/mL 2 - 3 Weeks..................100-5,000 mIU/mL 3 - 4 Weeks.................500-10,000 mIU/mL 4 - 5 Weeks...............1,000-50,000 mIU/mL 5 - 6 Weeks.............10,000-100,000 mIU/mL 6 - 8 Weeks.............15,000-200,000 mIU/mL 2 - 3 Months............10,000-100,000 mIU/mL 30 Approximate Gestational Age and Total BHCG Range: 0.2 - 1 Week........................5-50 mIU/mL 1 - 2 Weeks.....................50-500 mIU/mL 2 - 3 Weeks..................100-5,000 mIU/mL 3 - 4 Weeks.................500-10,000 mIU/mL 4 - 5 Weeks...............1,000-50,000 mIU/mL 5 - 6 Weeks.............10,000-100,000 mIU/mL 6 - 8 Weeks.............15,000-200,000 mIU/mL 2 - 3 Months............10,000-100,000 mIU/mL 31 Note: Persistent reduction for 3 months or more in an eGFR <60 mL/min/1.73 m2 defines CKD. Patients with eGFR values >/=60 mL/min/1.73 m2 may also have CKD if evidence of persistent proteinuria is present. The original MDRD equation for estimated GFR is not valid for patients less than 18 years of age. Additional information may be found at [email or web address]. 32 Values below the stated reference ranges of AST and ALT can be seen in normal populations. Clinical correlation is suggested. 33 Note: Persistent reduction for 3 months or more in an eGFR <60 mL/min/1.73 m2 defines CKD. Patients with eGFR values >/=60 mL/min/1.73 m2 may also have CKD if evidence of persistent proteinuria is present. The original MDRD equation for estimated GFR is not valid for patients less than 18 years of age. Additional information may be found at [email or web address]. 34 Values below the stated reference ranges of AST and ALT can be seen in normal populations. Clinical correlation is suggested. 35 . 36 No reportable results 37 GRAM STAIN ! GRAM STAIN INDETERMINANT FOR BACTERIAL VAGINOSIS ! MODERATE GRAM NEGATIVE BACILLI ! FEW GRAM VARIABLE COCCOBACILLI ! RARE GR POS. BACILLI SUGGESTIVE OF LACTOBACILLUS SP. ! NO WHITE BLOOD CELLS ! 38 GENITAL BROCK 39 Note: Persistent reduction for 3 months or more in an eGFR <60 mL/min/1.73 m2 defines CKD. Patients with eGFR values >/=60 mL/min/1.73 m2 may also have CKD if evidence of persistent proteinuria is present. The original MDRD equation for estimated GFR is not valid for patients less than 18 years of age. Additional information may be found at [email or web address]. 40 Values below the stated reference ranges of AST and ALT can be seen in normal populations. Clinical correlation is suggested. 41 . 42 No reportable results 43 GRAM STAIN ! GRAM STAIN INDETERMINANT FOR BACTERIAL VAGINOSIS ! MODERATE GRAM NEGATIVE BACILLI ! FEW GRAM VARIABLE COCCOBACILLI ! RARE GR POS. BACILLI SUGGESTIVE OF LACTOBACILLUS SP. ! NO WHITE BLOOD CELLS ! 44 GENITAL BROCK 45 Note: Persistent reduction for 3 months or more in an eGFR <60 mL/min/1.73 m2 defines CKD. Patients with eGFR values >/=60 mL/min/1.73 m2 may also have CKD if evidence of persistent proteinuria is present. The original MDRD equation for estimated GFR is not valid for patients less than 18 years of age. Additional information may be found at [email or web address]. 46 Values below the stated reference ranges of AST and ALT can be seen in normal populations. Clinical correlation is suggested. 47 . 48 No reportable results 49 GRAM STAIN ! GRAM STAIN INDETERMINANT FOR BACTERIAL VAGINOSIS ! MODERATE GRAM NEGATIVE BACILLI ! FEW GRAM VARIABLE COCCOBACILLI ! RARE GR POS. BACILLI SUGGESTIVE OF LACTOBACILLUS SP. ! NO WHITE BLOOD CELLS ! 50 GENITAL BROCK 51 GRAM STAIN ! GRAM STAIN INDETERMINANT FOR BACTERIAL VAGINOSIS ! MODERATE GRAM NEGATIVE BACILLI ! FEW GRAM VARIABLE COCCOBACILLI ! RARE GR POS. BACILLI SUGGESTIVE OF LACTOBACILLUS SP. ! NO WHITE BLOOD CELLS ! 52 GENITAL BROCK 53 No reportable results 54 . 55 Note: Persistent reduction for 3 months or more in an eGFR <60 mL/min/1.73 m2 defines CKD. Patients with eGFR values >/=60 mL/min/1.73 m2 may also have CKD if evidence of persistent proteinuria is present. The original MDRD equation for estimated GFR is not valid for patients less than 18 years of age. Additional information may be found at [email or web address]. 56 Values below the stated reference ranges of AST and ALT can be seen in normal populations. Clinical correlation is suggested. 57 GRAM STAIN ! GRAM STAIN INDETERMINANT FOR BACTERIAL VAGINOSIS ! MODERATE GRAM NEGATIVE BACILLI ! FEW GRAM VARIABLE COCCOBACILLI ! RARE GR POS. BACILLI SUGGESTIVE OF LACTOBACILLUS SP. ! NO WHITE BLOOD CELLS ! 58 GENITAL BROCK 59 No reportable results 60 . 61 Note: Persistent reduction for 3 months or more in an eGFR <60 mL/min/1.73 m2 defines CKD. Patients with eGFR values >/=60 mL/min/1.73 m2 may also have CKD if evidence of persistent proteinuria is present. The original MDRD equation for estimated GFR is not valid for patients less than 18 years of age. Additional information may be found at [email or web address]. 62 Values below the stated reference ranges of AST and ALT can be seen in normal populations. Clinical correlation is suggested. 63 GRAM STAIN ! GRAM STAIN INDETERMINANT FOR BACTERIAL VAGINOSIS ! MODERATE GRAM NEGATIVE BACILLI ! FEW GRAM VARIABLE COCCOBACILLI ! RARE GR POS. BACILLI SUGGESTIVE OF LACTOBACILLUS SP. ! NO WHITE BLOOD CELLS ! 64 GENITAL BROCK 65 No reportable results 66 No reportable results 67 Note: Persistent reduction for 3 months or more in an eGFR <60 mL/min/1.73 m2 defines CKD. Patients with eGFR values >/=60 mL/min/1.73 m2 may also have CKD if evidence of persistent proteinuria is present. The original MDRD equation for estimated GFR is not valid for patients less than 18 years of age. Additional information may be found at [email or web address]. 68 Values below the stated reference ranges of AST and ALT can be seen in normal populations. Clinical correlation is suggested. 69 UNSURE WHAT NEEDED 70 No reportable results 71 GRAM STAIN ! GRAM STAIN INDETERMINANT FOR BACTERIAL VAGINOSIS ! MODERATE GRAM NEGATIVE BACILLI ! FEW GRAM VARIABLE COCCOBACILLI ! RARE GR POS. BACILLI SUGGESTIVE OF LACTOBACILLUS SP. ! NO WHITE BLOOD CELLS ! 72 GENITAL BROCK 73 Note: Persistent reduction for 3 months or more in an eGFR <60 mL/min/1.73 m2 defines CKD. Patients with eGFR values >/=60 mL/min/1.73 m2 may also have CKD if evidence of persistent proteinuria is present. The original MDRD equation for estimated GFR is not valid for patients less than 18 years of age. Additional information may be found at [email or web address]. 74 Values below the stated reference ranges of AST and ALT can be seen in normal populations. Clinical correlation is suggested. 75 UNSURE WHAT NEEDED 76 No reportable results 77 GRAM STAIN ! GRAM STAIN INDETERMINANT FOR BACTERIAL VAGINOSIS ! MODERATE GRAM NEGATIVE BACILLI ! FEW GRAM VARIABLE COCCOBACILLI ! RARE GR POS. BACILLI SUGGESTIVE OF LACTOBACILLUS SP. ! NO WHITE BLOOD CELLS ! 78 GENITAL BROCK 79 CULTURE IN PROGRESS 80 GRAM STAIN ! GRAM STAIN INDETERMINANT FOR BACTERIAL VAGINOSIS ! MODERATE GRAM NEGATIVE BACILLI ! FEW GRAM VARIABLE COCCOBACILLI ! RARE GR POS. BACILLI SUGGESTIVE OF LACTOBACILLUS SP. ! NO WHITE BLOOD CELLS ! 81 GENITAL BROCK 82 No reportable results 83 UNSURE WHAT NEEDED 84 Note: Persistent reduction for 3 months or more in an eGFR <60 mL/min/1.73 m2 defines CKD. Patients with eGFR values >/=60 mL/min/1.73 m2 may also have CKD if evidence of persistent proteinuria is present. The original MDRD equation for estimated GFR is not valid for patients less than 18 years of age. Additional information may be found at [email or web address]. 85 Values below the stated reference ranges of AST and ALT can be seen in normal populations. Clinical correlation is suggested. 86 UNSURE WHAT NEEDED 87 Note: Persistent reduction for 3 months or more in an eGFR <60 mL/min/1.73 m2 defines CKD. Patients with eGFR values >/=60 mL/min/1.73 m2 may also have CKD if evidence of persistent proteinuria is present. The original MDRD equation for estimated GFR is not valid for patients less than 18 years of age. Additional information may be found at [email or web address]. 88 Values below the stated reference ranges of AST and ALT can be seen in normal populations. Clinical correlation is suggested. 89 Note: Persistent reduction for 3 months or more in an eGFR <60 mL/min/1.73 m2 defines CKD. Patients with eGFR values >/=60 mL/min/1.73 m2 may also have CKD if evidence of persistent proteinuria is present. The original MDRD equation for estimated GFR is not valid for patients less than 18 years of age. Additional information may be found at [email or web address]. 90 Values below the stated reference ranges of AST and ALT can be seen in normal populations. Clinical correlation is suggested. 91 . 92 No reportable results 93 GRAM STAIN ! GRAM STAIN INDETERMINANT FOR BACTERIAL VAGINOSIS ! MODERATE GRAM NEGATIVE BACILLI ! FEW GRAM VARIABLE COCCOBACILLI ! RARE GR POS. BACILLI SUGGESTIVE OF LACTOBACILLUS SP. ! NO WHITE BLOOD CELLS ! 94 GENITAL BROCK 95 Note: Persistent reduction for 3 months or more in an eGFR <60 mL/min/1.73 m2 defines CKD. Patients with eGFR values >/=60 mL/min/1.73 m2 may also have CKD if evidence of persistent proteinuria is present. The original MDRD equation for estimated GFR is not valid for patients less than 18 years of age. Additional information may be found at [email or web address]. 96 Values below the stated reference ranges of AST and ALT can be seen in normal populations. Clinical correlation is suggested. 97 UNSURE WHAT NEEDED 98 No reportable results 99 GRAM STAIN ! GRAM STAIN INDETERMINANT FOR BACTERIAL VAGINOSIS ! MODERATE GRAM NEGATIVE BACILLI ! FEW GRAM VARIABLE COCCOBACILLI ! RARE GR POS. BACILLI SUGGESTIVE OF LACTOBACILLUS SP. ! NO WHITE BLOOD CELLS ! 100 GENITAL BROCK 101 Note: Persistent reduction for 3 months or more in an eGFR <60 mL/min/1.73 m2 defines CKD. Patients with eGFR values >/=60 mL/min/1.73 m2 may also have CKD if evidence of persistent proteinuria is present. The original MDRD equation for estimated GFR is not valid for patients less than 18 years of age. Additional information may be found at [email or web address]. 102 Values below the stated reference ranges of AST and ALT can be seen in normal populations. Clinical correlation is suggested. 103 UNSURE WHAT NEEDED 104 No reportable results 105 GRAM STAIN ! GRAM STAIN INDETERMINANT FOR BACTERIAL VAGINOSIS ! MODERATE GRAM NEGATIVE BACILLI ! FEW GRAM VARIABLE COCCOBACILLI ! RARE GR POS. BACILLI SUGGESTIVE OF LACTOBACILLUS SP. ! NO WHITE BLOOD CELLS ! 106 GENITAL BROCK 107 Note: Persistent reduction for 3 months or more in an eGFR <60 mL/min/1.73 m2 defines CKD. Patients with eGFR values >/=60 mL/min/1.73 m2 may also have CKD if evidence of persistent proteinuria is present. The original MDRD equation for estimated GFR is not valid for patients less than 18 years of age. Additional information may be found at [email or web address]. 108 Values below the stated reference ranges of AST and ALT can be seen in normal populations. Clinical correlation is suggested. 109 UNSURE WHAT NEEDED 110 No reportable results 111 GRAM STAIN ! GRAM STAIN INDETERMINANT FOR BACTERIAL VAGINOSIS ! MODERATE GRAM NEGATIVE BACILLI ! FEW GRAM VARIABLE COCCOBACILLI ! RARE GR POS. BACILLI SUGGESTIVE OF LACTOBACILLUS SP. ! NO WHITE BLOOD CELLS ! 112 GENITAL BROCK 113 SEE RESULT BELOW Name: MECCA VIEIRA : [address]: Андрей Myrick MD Acct: [id number] Unit: [id number] AGE: 24 Location: [facility] Re06/01/15 SEX: F Status: DEP ER SPEC: [id number] FAZAL: 06/01/15-[address] [facility] DR: Андрей Myrick MD REQ: [id number] RECD: 06/01/15 STATUS: JORDI BRASWELL DR: Barb Newman MD [facility] _ SOURCE: URINE [facility]: ORDERED: Urine Culture Procedure Result Verified Site Urine Culture Final 06/03/15- 0853 ML Organism 1 ESCHERICHIA COLI [place] Count 10-25,000 (Moderate) CFU/ML 1. ESCHERICHIA COLI M.I.C. RX --------- ------ Ampicillin >=32 R Cefazolin <=4 S Cefepime <=1 S Ceftriaxone <=1 S Ciprofloxacin <=0.25 S Gentamicin <=1 S Levofloxacin <=0.12 S Meropenem <=0.25 S Nitrofurantoin <=16 S Tetracycline <=1 S Pipercillin/Tazobactam <=4 S Trimethoprim/Sulfamethoxazole <=20 S Amoxicillin/Clavulanic Acid 8 S Aztreonam <=1 S Contact the Microbiology Department for any additional antibiotic reporting. * ML - MAIN LAB ([facility]) . END OF REPORT * ML=Testing performed at Main Lab DEPARTMENT OF PATHOLOGY, [address] [place] [address] Jama Butler M.D. Director [facility] # [id number] 114 Approximate Gestational Age and Total BHCG Range: 0.2 - 1 Week........................5-50 mIU/mL 1 - 2 Weeks.....................50-500 mIU/mL 2 - 3 Weeks..................100-5,000 mIU/mL 3 - 4 Weeks.................500-10,000 mIU/mL 4 - 5 Weeks...............1,000-50,000 mIU/mL 5 - 6 Weeks.............10,000-100,000 mIU/mL 6 - 8 Weeks.............15,000-200,000 mIU/mL 2 - 3 Months............10,000-100,000 mIU/mL 115 -------- Issue -------- Unit # Bld Type Product Status Date Time User Rsrvd [id number] RHOGAM PRSMD TRFSD 01/19/151314 LAB.GSP Unit Satisfactory? No Apparent Contamination Volume: 2 ML TX Begin: 01/19/15 By Auto[employer] TX End: 01/19/15 By [employer] 116 Acceptable specimens for this test are male urethral swab, endocervical swab and liquid based pap specimens, vaginal swabs in APTIMA transports and first void urine. See online Directory of Services for test number for rectal and pharyngeal specimens. Performed at: RN - [facility] [address] [id number] Pediatric Orthodontist: Delisa Perales MD, Phone: [phone] 117 FIRST MORNING SPECIMENS GENERALLY CONTAIN THE HIGHEST CONCENTRATION OF HCG AND ARE RECOMMENDED FOR EARLY DETECTION OF . 118 01/19/15 LAB.DWM Deleted by [facility] 119 Note: Persistent reduction for 3 months or more in an eGFR <60 mL/min/1.73 m2 defines CKD. Patients with eGFR values >/=60 mL/min/1.73 m2 may also have CKD if evidence of persistent proteinuria is present. The original MDRD equation for estimated GFR is not valid for patients less than 18 years of age. Additional information may be found at [email or web address]. 120 Approximate Gestational Age and Total BHCG Range: 0.2 - 1 Week........................5-50 mIU/mL 1 - 2 Weeks.....................50-500 mIU/mL 2 - 3 Weeks..................100-5,000 mIU/mL 3 - 4 Weeks.................500-10,000 mIU/mL 4 - 5 Weeks...............1,000-50,000 mIU/mL 5 - 6 Weeks.............10,000-100,000 mIU/mL 6 - 8 Weeks.............15,000-200,000 mIU/mL 2 - 3 Months............10,000-100,000 mIU/mL 121 NORMAL THROAT BROCK 122 OFFICE NUMBER [id number] <5.0 Negative 5.0 - 25.0 Indeterminate >25.0 Positive Procedures Date Code Description Status 04/29/2016 40047 Spirometry Completed 04/29/2016 24917 Tympanometry Completed 09/24/2015 76138 Spirometry Completed 09/24/2015 74636 Tympanometry Completed 04/23/2015 32270 Visual Screening Test Completed 04/23/2015 21635 Audiometry, [place], Screening Completed 07/12/2014 81845 Visual Screening Test Completed 07/12/2014 45078 Diagnostic Bekesy Audiometry Completed Encounters Type Date Location Provider Dx Diagnosis Office Visit 09/25/2018 [facility] Radhames Alexandre, F17.210 Nicotine dependence, 11:30a N.P. cigarettes, uncomplicated L20.9 Atopic dermatitis, unspecified J30.9 Allergic rhinitis, unspecified E66.01 Morbid (severe) obesity due to excess calories F90.2 Attention-deficit hyperactivity disorder, combined type K02.9 Dental caries, unspecified M54.5 Low back pain F41.9 Anxiety disorder, unspecified R53.83 Other fatigue I83.90 Asymptomatic varicose veins of unspecified lower extremity E78.2 Mixed hyperlipidemia Z68.42 Body mass index (BMI) 45.0-49.9, adult Office Visit 08/23/2018 11:30a [facility] Radhames Alexandre, F17.210 Nicotine dependence, N.P. cigarettes, uncomplicated L20.9 Atopic dermatitis, unspecified J30.9 Allergic rhinitis, unspecified E66.01 Morbid (severe) obesity due to excess calories F90.2 Attention-deficit hyperactivity disorder, combined type K02.9 Dental caries, unspecified M54.5 Low back pain F41.9 Anxiety disorder, unspecified Z23 Encounter for immunization R53.83 Other fatigue Z68.42 Body mass index (BMI) 45.0-49.9, adult Office Visit 08/07/2018 11:00a [facility] Radhames Alexandre F17.210 Nicotine dependence, N.P. cigarettes, uncomplicated L20.9 Atopic dermatitis, unspecified J30.9 Allergic rhinitis, unspecified E66.01 Morbid (severe) obesity due to excess calories F90.2 Attention-deficit hyperactivity disorder, combined type K02.9 Dental caries, unspecified M54.5 Low back pain F41.9 Anxiety disorder, unspecified Z68.42 Body mass index (BMI) 45.0-49.9, adult Office Visit 01/26/2018 1:15p [facility] Barb Newman F17.210 Nicotine dependence, Josette Chand. cigarettes, uncomplicated L20.9 Atopic dermatitis, unspecified J30.9 Allergic rhinitis, unspecified E66.01 Morbid (severe) obesity due to excess calories F90.2 Attention-deficit hyperactivity disorder, combined type K02.9 Dental caries, unspecified Z00.01 Encounter for general adult medical exam w abnormal findings Z68.42 Body mass index (BMI) 45.0-49.9, adult Office Visit 03/28/2017 10:00a [facility] Roque iKm F90.2 Attention- deficit BUTTER PRINTER hyperactivity disorder, combined type F17.210 Nicotine dependence, cigarettes, uncomplicated R19.7 Diarrhea, unspecified Office Visit 08/09/2016 1:30p [facility] Roque Kim J01.40 Acute pansinusitis, BUTTER PRINTER unspecified R05 Cough R50.9 Fever, unspecified F17.210 Nicotine dependence, cigarettes, uncomplicated Z33.1 state, incidental Office Visit 07/14/2016 9:45a [facility] Roque Kim N39.0 Urinary tract BUTTER PRINTER infection, site not specified R30.0 Dysuria R39.15 Urgency of urination Office Visit 06/14/2016 10:00a [facility] Roque Kim F17.210 Nicotine dependence, BUTTER PRINTER cigarettes, uncomplicated M25.531 Pain in right wrist Z33.1 state, incidental Office Visit 04/29/2016 1:30p [facility] Barb Newman J20.9 Acute bronchitis, Isaac Chand unspecified J01.40 Acute pansinusitis, unspecified H66.93 Otitis media, unspecified, bilateral R05 Cough R09.81 Nasal congestion R50.9 Fever, unspecified F17.210 Nicotine dependence, cigarettes, uncomplicated F90.0 Attn-defct hyperactivity disorder, predom inattentive type E66.01 Morbid (severe) obesity due to excess calories M54.42 Lumbago with sciatica, left side Office Visit 02/09/2016 10:15a [facility] Roque Kim K12.2 Cellulitis and BUTTER PRINTER abscess of mouth M54.42 Lumbago with sciatica, left side E66.01 Morbid (severe) obesity due to excess calories F90.0 Attn-defct hyperactivity disorder, predom inattentive type F17.200 Nicotine dependence, unspecified, uncomplicated Office Visit 01/28/2016 10:45a [facility] Roque Kim M54.42 Lumbago with BUTTER PRINTER sciatica, left side E66.01 Morbid (severe) obesity due to excess calories F90.0 Attn-defct hyperactivity disorder, predom inattentive type J01.80 Other acute sinusitis Z98.818 Other dental procedure status Office Visit 12/31/2015 9:45a [facility] Roque Kim M54.42 Lumbago with BUTTER PRINTER sciatica, left side E66.01 Morbid (severe) obesity due to excess calories F90.0 Attn-defct hyperactivity disorder, predom inattentive type F17.200 Nicotine dependence, unspecified, uncomplicated Office Visit 11/26/2015 3:45p [facility] Roque Kim M54.42 Lumbago with BUTTER PRINTER sciatica, left side E66.01 Morbid (severe) obesity due to excess calories F90.0 Attn-defct hyperactivity disorder, predom inattentive type F17.200 Nicotine dependence, unspecified, uncomplicated Office Visit 10/29/2015 3:45p [facility] Roque Kim F17.200 Nicotine dependence, BUTTER PRINTER unspecified, uncomplicated E66.01 Morbid (severe) obesity due to excess calories F90.0 Attn-defct hyperactivity disorder, predom inattentive type Office Visit 10/08/2015 9:45a [facility] Roque Kim F17.200 Nicotine dependence, BUTTER PRINTER unspecified, uncomplicated J01.80 Other acute sinusitis J06.9 Acute upper respiratory infection, unspecified R05 Cough R50.9 Fever, unspecified B37.3 Candidiasis of vulva and vagina Office Visit 09/24/2015 8:30a [facility] Roque Kim F90.0 Attn-defct BUTTER PRINTER hyperactivity disorder, predom inattentive type F17.200 Nicotine dependence, unspecified, uncomplicated J01.80 Other acute sinusitis J06.9 Acute upper respiratory infection, unspecified R05 Cough R50.9 Fever, unspecified Office Visit 08/06/2015 10:15a [facility] Roque Kim BUTTER [employer]INTER 787.02 Nausea Alone 780.79 Malaise And Fatigue Other 626.0 Menstruation Absence 300.00 Anxiety State Unspec 305.1 Tobacco Use Disorder Office Visit 07/16/2015 1:45p [facility] Roque Kim 616.10 Vaginitis & BUTTER [employer]INTER Vulvovaginitis Unspec 314.00 Attention Deficit Disorder W/O Mention Of Hyperactivity 300.00 Anxiety State Unspec Office Visit 05/22/2015 1:30p Roque Fink [employer] 724.2 Lumbago 846.0 Sprains & Strains Sacroiliac Region Lumbosacral (Joint)(Liga 724.3 Sciatica 305.1 Tobacco Use Disorder Office Visit 04/23/2015 1:30p [facility] Roque Kim V70.0 Examination General [employer] Medical Routine AT Health Care Facility V70.0 Examination General Medical Routine AT Health Care Facility 724.2 Lumbago 846.0 Sprains & Strains Sacroiliac Region Lumbosacral (Joint)(Liga 314.00 Attention Deficit Disorder W/O Mention Of Hyperactivity 300.00 Anxiety State Unspec Office Visit 03/24/2015 11:15a [facility] Barb Newman M.D. 724.2 Lumbago 846.0 Sprains & Strains Sacroiliac Region Lumbosacral (Joint)(Liga 789.07 Pain Abdominal Generalized 305.1 Tobacco Use Disorder 477.8 Rhinitis Allergic Due To Other Allergen 780.79 Malaise And Fatigue Other 314.00 Attention Deficit Disorder W/O Mention Of Hyperactivity 300.00 Anxiety State Unspec Office Visit 02/11/2015 11:15a [facility] [place] [facility] Barb Newman M.D. 724.2 Lumbago 846.0 Sprains & Strains Sacroiliac Region Lumbosacral (Joint)(Liga 789.07 Pain Abdominal Generalized 305.1 Tobacco Use Disorder 477.8 Rhinitis Allergic Due To Other Allergen 780.79 Malaise And Fatigue Other Office Visit 01/17/2015 4:15p [place] [facility] Barb Newman 789.07 Pain Abdominal Isaac Chand Generalized 626.9 Menstruation & Other Abnormal Bleeding Disorders Unspec V22.2 State Incidental Normal Office Visit 09/30/2014 4:00p [facility] Sherrill Perez, 462 Pharyngitis Acute BUTTER [employer]INTER 381.10 Otitis Media Simple Or Unspec Chronic 305.1 Tobacco Use Disorder 780.60 Fever, Unspecified 786.2 Cough Office Visit 09/13/2014 4:00p [place] [facility] Sherrill Perez, BUT[employer]INTER 724.2 Lumbago 724.5 Backache Unspec 724.8 Back Symptoms Other 338.19 Other Acute Pain Office Visit 08/05/2014 10:00a [facility] Sherrill Perez, 626.0 Menstruation BUT[employer]INTER Absence 305.1 Tobacco Use Disorder Office Visit 07/12/2014 9:00a [facility] Sherrill Perez, V70.0 Examination [employer]TER [employer]INTER General Medical Routine AT Health Care Facility 528.9 Oral Soft Tissue Diseases Other & Unspec Plan of Treatment Future Appointment(s):10/23/2018 11:15 am - Radhames Alexandre N.P. at [facility]
[2018-10-10 16:09] VITALS: BP 119/68
--- NOTE | 2018-10-10 16:11 | UC ---
Respiratory Complaint HPI - HPI Summary HPI Summary: 28 yo female presents with sinus congestion, post nasal drip, and productive cough with yellow/green sputum for the last 2 weeks. She has been taking mucinex with no relief. She denies fever, chills, SOB, chest pain. - History of Current Complaint Chief Complaint: UCRespiratory Stated Complaint: CHEST CONGESTION Time Seen by Provider: 10/10/18 16:10 Hx Obtained From: Patient Hx Last Menstrual Period: unknown Onset/Duration: Gradual Onset Severity Currently: None Pain Intensity: 0 Character: Cough: Productive - Allergies/Home Medications Allergies/Adverse Reactions: Allergies Allergy/AdvReac Type Severity Reaction Status Date / Time No Known Allergies Allergy Verified 10/10/18 16:09 Home Medications: Home Medications Citalopram TAB* [Celexa TAB*] 30 mg PO DAILY 10/10/18 [History Confirmed ] PMH/Surg Hx/FS Hx/Imm Hx Psychological History: Anxiety, Depression - Surgical History Surgical History: Yes Surgery Procedure, Year, and Place: D&C 09/04 - Family History Known Family History: Positive: None, Other - no hx RA/lupus - Social History Occupation: Employed Full-time Lives: With Family Alcohol Use: None Substance Use Type: None Smoking Status (MU): Light Every Day Tobacco Smoker Type: Cigarettes Amount Used/How Often: 5-6 CIG/DAY Length of Time of Smoking/Using Tobacco: 10 yrs Have You Smoked in the Last Year: Yes Review of Systems All Other Systems Reviewed And Are Negative: Yes Constitutional: Positive: Negative Skin: Positive: Negative Eyes: Positive: Negative ENT: Positive: Sore Throat, Sinus Congestion Respiratory: Positive: Cough Cardiovascular: Positive: Negative Gastrointestinal: Positive: Negative Neurovascular: Positive: Negative Neurological: Positive: Negative Psychological: Positive: Negative Physical Exam - Summary Physical Exam Summary: GENERAL: NAD. WDWN. No pain distress. SKIN: No rashes, sores, lesions, or open wounds. HEENT: Head: AT/NC Eyes: EOM intact. Conjunctiva clear without inflammation or discharge. Ears: Hearing grossly normal. TMs intact, no bulging, erythema, or edema. Nose: Nasal mucosa mildly swollen and erythematous without discharge. TTP maxillary and frontal sinus. Positive post nasal drip Throat: Posterior oropharynx without exudates, erythema, or tonsillar enlargement. Uvula midline. NECK: Supple. Nontender. No lymphadenopathy. CHEST: CTAB. No r/r/w. No accessory muscle use. Breathing comfortably and in no distress. CV: RRR. Without m/r/g. Pulses intact. NEURO: Alert. PSYCH: Age appropriate behavior. Triage Information Reviewed: Yes Vital Signs: Initial Vital Signs Temp 97.4 F 10/10/18 16:03 Pulse 81 10/10/18 16:03 Resp 16 10/10/18 16:03 BP 119/68 10/10/18 16:03 Pulse Ox 100 10/10/18 16:03 Vital Signs Reviewed: Yes Diagnostic Evaluation - Laboratory O2 Sat by Pulse Oximetry: 100 Respiratory Course/Dx - Course Course Of Treatment: Sinusitis - Differential Dx/Diagnosis Provider Diagnoses: Sinusitis Discharge - Sign-Out/Discharge Documenting (check all that apply): Patient Departure All imaging exams completed and their final reports reviewed: No Studies - Discharge Plan Condition: Stable Disposition: HOME Prescriptions: Amoxicillin PO (*) [Amoxicillin 875 MG (*)] 875 mg PO BID #14 tab Fluticasone NASAL SPRAY 50MCG* [Flonase NASAL SPRAY 50MCG*] 2 spray BOTH NARES DAILY #1 btl Patient Education Materials: Sinusitis (ED) Referrals: Barb Newman MD [Primary Care Provider] - Additional Instructions: If you develop a fever, shortness of breath, chest pain, new or worsening symptoms - please call your PCP or go to the ED. - Billing Disposition and Condition Condition: STABLE Disposition: Home - Attestation Statements Provider Attestation: Per institutional requirements, I have reviewed the chart, however, I was not consulted specifically or made aware of this patient by the midlevel provider. I did not personally evaluate, interact with , or disposition this patient.
== END 2018-10-10 16:24 | disposition home or self-care (01) ==
LOC: UCEAST 15:48
DX: J32.9 Chronic sinusitis, unspecified (principal); F32.9 Major depressive disorder, single episode, unspecified; F17.210 Nicotine dependence, cigarettes, uncomplicated; Z79.899 Other long term (current) drug therapy
CPT/HCPCS: 99212; G0463

== ENCOUNTER 2018-11-19 14:14 | Emergency (ER) | payer OTHER ==
[2018-11-19 14:34] VITALS: BP 123/73
--- OUTSIDE RECORDS SUMMARY | 2018-11-19 14:41 | XMS REPORT | Continuity of Care Document ---
:1990 External Reference #:[id number] Author Name Radhames Alexandre N.P. Address [address] [place] [address] Care Team Providers Name Role Phone Barb Newman MD Care Team Information Respiratory Support Technician Unavailable Payers Type Date Identification Numbers Payment Provider Subscriber Policy Number: [id number] [facility] Mecca Caban PayID: [id number] [address] [place] [address] Policy Number: [id number] Medicaid/[facility] [employer] Mecca Caban PayID: [id number] [address] [place] [address] Advance Directives Description No Information Available Problems [...] Unknown Marital Status Legal Status: Legally 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 Use Rarely consumes alcohol Tobacco Use Start: Unknown Patient is a current 10 cigarettes a day smoker, smokes every day Smoking Status Reviewed: 10/31/18 Patient is a current 10 cigarettes a day smoker, smokes every day Exercise Exercises rarely Type/Frequency Tattoo/Piercing Tattoo multiple tattoo's Tattoo/Piercing Pierced tongue Tattoo/Piercing Pierced ears Tattoo/Piercing nose piercing Allergies, Adverse Reactions, Alerts Description No Known Drug Allergies Medications Medication Date Status Form Strength Qnty SIG Indications Ordering Provider Omeprazole 11/01/ Active Capsules 20mg 30cap 1 by mouth K21.[address] s every day Barb Chand M.D. Meloxicam 11/01/ Active Tablets 7.5mg 60tab take one Marcelina Abbott s tablet by Barb Chand mouth twice M.D. a day-take with food Citalopram 09/25/ Active Tablets 10mg 30tab 1 by mouth F41Reji Newman Hydrobromide 2018 s every day Barb Chand, Take With M.D. 20MG Tabs. Total Dose=30MG Tylenol Extra 08/07/ Active Tablets 500mg 180ta 2 tabs by Diana Abbott 2018 bs mouth three Ahmad M., times a day M.D. as directed. max daily dose of tylenol from all sources to not exceed 4000mg Celexa 08/07/ Active Tablets 20mg 30tab 1 by mouth F41Marcelina Sheffield s every day Barb Chand, with 10mg M.D. tab total dose=30mg daily Aleve 08/07/ Hx Tablets 220mg 60tab 1 tab by Dallin Newman 2018 - s mouth twice Ahmad M., 08/07/ a day M.D. 2017 Tylenol Extra 08/07/ Hx Tablets 500mg 180ta 2 tabs by Dallin Newman Strength 2018 - bs mouth three Ahmad M., 08/07/ times a day M.D. 2017 as directed. max daily dose of tylenol from all sources to not exceed 4000mg Cyclobenzaprine 08/07/ Hx Tablets 5mg 90tab 1 tab by Dallin Newman HCL 2018 - s mouth three Ahmad M., 10/31/ times a day M.D. 2017 as needed Naproxen Sodium 08/07/ Hx Tablets 275mg 60tab 1 tab by Trent 2018 - s mouth twice Ahmad M., 10/31/ a day M.D. 2018 Percocet 01/26/ Hx Tablets 10-325mg 30tab 1 tab by K02.9 Trent 2018 - s mouth three Ahmad M., 08/07/ times a day M.D. 2018 as needed Ibuprofen 01/26/ Hx Tablets 800mg 90tab 1 by mouth K02.9 Trent, 2017 - s three times Ahmad M., 08/07/ a day as M.D. 2018 needed Azithromycin 08/09/ Hx Tablets 250mg 6tabs take two J01.40 Trent, 2016 - tablets by Barb Astudillo., 08/14/ mouth as M.D. 2015 one dose on the first day then take one daily thereafter x 4 days Amoxicillin 07/14/ Hx Tablets 500mg 30tab 1 three N39.0 Trent, 2016 - [facility] x10 day [facility]. 2015 Amoxicillin 04/29/ Hx Tablets 500mg 40tab 2 by mouth J20.9 Trent, 2016 - s twice a day [facility] 05/09/ M.D. 2015 Clindamycin HCL 02/08/ Hx Capsules 150mg 20cap tab one by Trent, 2016 - s mouth twice [facility] 02/18/ a day M.D. 2015 Ciprofloxacin HCL 01/27/ Hx Tablets 500mg 20tab tab one by J01.80 Trent , 2016 - s mouth twice [facility] 02/06/ a day M.D. 2016 Medrol (William) 11/26/ Hx Tablets 4mg 21tab use as M54.42 Trent, 2016 - s directed [facility] 12/06/ M.D. 2016 Tramadol HCL 11/26/ Hx Tablets 50mg 45tab 1 by mouth M54.42 Trent, 2016 - s three times Ahmad M., 12/06/ a day M.D. 2016 Adderall XR 10/29/ Hx Caps ER 30mg 30cap 1 by mouth F90.0 Trent, 2014 - 24HR s every [facility] 02/26/ morning M.D. 2016 Medrol (William) 10/08/ Hx Tablets 4mg 14tab use as S33.8xxA Trent, 2015 - s directed [facility] 10/29/ M.D. 2014 M54.5 Cipro 10/08/2015 - Hx Tablets 500mg 20tabs 1 twice a day J06.9 Trent, cherise 10/18/2015 Isaac Chand J01.80 Lor Mendoza 10/08/2015 - Hx Capsules 100mg 60caps take Two R05 Trent, 10/29/2015 capsule by Barb Chand, mouth three M.D. times a day Diflucan 10/08/2015 - Hx Tablets 150mg 2tabs tab one now B37.3 Trent, 10/29/2015 may repeat Barb Chand, in 5 days M.DElliott Cheratussin ac 09/24/2015 - Hx Syrup 100-10mg/ 150cc teaspoon 1 R05 Trent, 10/08/2015 5ML every 4 mamarylin MElliott, hours as M.D. needed 08/06/2015 - Hx Tablets 14-0.4mg 30tabs 1 by mouth N91.0 Trent , Complete 10/29/2015 every day Barb Chand M.D. Physical 06/04/2015 - Hx M54.5 Trent, Therapy For 10/29/2015 Barb Chand, Chronic Low M.D. Back Pain S33.8xxA M54.30 Cyclobenzaprine HCL 05/22/2015 - Hx Tablets 10mg 90tabs tab one by Trent, 10/29/2015 mouth three Ahmad M., times a day M.D. Adderall XR 04/23/2015 - Hx Caps ER 24HR 20mg 30caps tab 1 by F90. Trent, 10/29/2015 mouth every 0 Ahmad M., morning M.DElliott Strattera 03/24/2015 - Hx Capsules 40mg 30caps 1 cap by 314. Trent, 04/23/2015 mouth every 00 Ahmad M., day M.D. 300.00 Chantix 03/24/2015 - Hx Tablets 1mg 60tabs 1 by mouth 305.1 Trent cherise 04/23/2015 twice a day Isaac Chand Medrol (William) 02/11/2015 - Hx Tablets 4mg 14tabs use as directed 846.0 Barb Newman 02/17/2015 Isaac Chand 724.2 Hydrocodone-Acetaminophen 02/11/2015 Hx Tablets 10-325mg 180tabs 1 by M54.5 Trent, - mouth Ahmad 10/29/2015 every 4 M., hours M.D. as needed S33.8xxA Complete 01/17/2015 - Hx Tablets 14-0.4mg 30tabs 1 by mouth V22.2 Trent, 04/23/2015 every day Barb Chand M.D. 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 MElliottD. with food as needed for pain S33.8xxA 08/05/2014 - Hx Tablets 14-0.4mg take 1 Chris, Complete 08/05/2014 tablet by LYNNE Mccartney mouth daily 19 08/05/2014 - Hx Tablets 29-1mg 30tab take 1 626.0 Chris, 09/20/2014 s tablet by LYNNE Mccartney mouth daily Amoxicillin 07/12/2014 - Hx Tablets 500mg 21tab take 1 528.9 Chris, 07/26/2014 s tablet by LYNNE Mccartney mouth three times a day for 7 days Immunizations CPT Code Status Date Vaccine Lot # [id number] Given 08/23/2018 Flu Vaccine [id number] 48765 Given 09/05/2014 Flu Vaccine 62864 Given 05/07/1993 Hep B To Age 18 86404 Given 09/25/1992 Hep B To Age 18 29356 Given 09/25/1992 IPV 60975 Given 09/25/1992 MMR 15365 Given 09/25/1992 DTaP [facility] [id number] ML 0.50 74133 Given 03/24/1992 Hemophilus Influenza B Vaccine 95194 Given 03/24/1992 DTaP [facility] [id number] ML 0.50 65332 Given 03/24/1992 MMR 14506 Given 03/24/1992 IPV 23909 Given 07/16/1991 IPV 81689 Given 07/16/1991 DTaP ND [id number] ML 0.50 52923 Given 07/16/1991 Hemophilus Influenza B Vaccine 95362 Given 02/01/1991 IPV 30916 Given 02/01/1991 DTaP [facility] [id number] ML 0.50 40312 Given 02/01/1991 Hemophilus Influenza B Vaccine Vital Signs Date Vital Result Comment 11/01/2018 10:50am BP Systolic 108 mmHg BP Diastolic 64 mmHg Height 64.5 inches 5'4.50" Weight 272.00 lb BMI (Body Mass Index) 46.0 kg/m2 Heart Rate 88 /min Respiratory Rate 16 /min 09/25/2018 11:21am BP Systolic 124 mmHg BP [...] Range Note CBC With Diff 08/23/2018 [facility] WBC 6.6 10*3/uL (4.1-11.0) [address] (607)- - RBC 4.68 10*6/uL (4.00-5.40) HGB 14.0 g/dL (12.0-16.0) HCT 40.9 % (36.0-47.0) MCV 87.4 fL (80.0-95.0) MCH 30.0 pg (27.0-32.0) MCHC 34.3 g/dL (32.0-36.0) RDW 13.0 % (10.5-14.5) PLT 249 10*3/uL (150-450) MPV 9.8 fL (7.1-10.7) Neut % 64.7 % (35.0-75.0) Lymph % 25.2 % (16.0-52.0) [place] % 7.8 % (0.0-8.0) Eos % 1.6 % (0.0-5.0) Baso % 0.7 % (0.0-4.0) Neut # 4.3 10*3/uL (1.8-7.7) Lymph # 1.7 10*3/uL (1.2-4.8) [place] # 0.5 10*3/uL (0.0-0.8) Eos # 0.1 10*3/uL (0.0-0.5) Baso # 0.0 10*3/uL (0.0-0.2) CMP 08/23/2018 [facility] Sodium 140 mmol/L (136-145) [address] (606)- - Potassium 4.2 mmol/L (3.6-5.2) Chloride 104 [...] <SEE NOTE> 1 Hemoglobin A1c 08/23/2018 [facility] Hemoglobin A1c @ 5.2 % (4.0-6.0) 2 [address] (243)- - Est Average Glucose 103 mg/dL Lipid 08/23/2018 [facility] Cholesterol @ 200 mg/dL (0-200) [address] (449)- - Triglyceride @ 293 mg/dL High (30-200) HDL Cholesterol @ 33 mg/dL Low (>40) 3 Chol/HDL Ratio 6.1 RATIO 4 LDL Chol (Calc) 108 mg/dL (<130) 5 Laboratory test 08/23/2018 [facility] TSH,Ultrasensitive @ 1.010 ( 0.360-4.170) finding [address] mIU/L (961)- - Urine Culture 04/13/2018 [facility] Urine Culture SEE RESULT 6, And BELOW 7 Sensitivities Poc Urinalysis 04/13/2018 [facility] Poc Glucose, Urine Negative Negative Poc Bilirubin, Urine Negative Negative Poc Ketone, Urine Negative Negative Poc Specific [place], Urine 1.025 N 1.010-1.030 Poc Blood, Urine 3+ Abnormal Negative Poc pH, Urine 5.0 N 5-9 Poc Protein, Urine 2+ Abnormal Negative Poc Urobilinogen, Urine 0.2 Negative Poc Nitrite, Urine Positive Abnormal Negative Poc Leukocytes, Urine 1+ Abnormal Negative Poc Color, Urine Dark yellow Poc Clarity, Urine Slightly Cloudy 8 Urine Culture 03/11/2017 [facility] Urine Culture MIXED URETHRAL F <SEE NOTE > 9, 10 Quantity > 100,000 CFU/mL N 11 Laboratory test finding 03/11/2017 [facility] HCG, Quant < 1.0 mIU/mL 12 Urinalysis With Microscopic 03/11/2017 [facility] Urine Color YELLOW Yellow Urine Clarity CLEAR Clear Urine Glucose - Dipstick NEGATIVE mg/dL Negative Urine Bilirubin - Dipstick NEGATIVE Negative Urine Ketone NEGATIVE mg/dL Negative Urine Specific [place] 1.025 N 1.010-1.030 Urine Blood NEGATIVE Negative Urine PH 6.0 Low 6.5-7.5 Urine Protein - Dipstick NEGATIVE mg/dL Negative Urine Urobilinogen - Dipstick 0.2 E.U./dL N 0.2-1.0 Urine Nitrite - Dipstick NEGATIVE Negative Urine Leuk Esterase SMALL Abnormal Negative Urine RBC 0-2 rbc/hpf 0-2 Urine WBC 5-10 wbc/hpf 0-7 Urine Epithelial Cells MANY /lpf None Seen 13 Urine Bacteria MODERATE Abnormal None Seen Urine Mucus MODERATE None Seen Source: URINE, CLEAN CAT <SEE NOTE> 14 CBC 03/11/2017 [facility] White Blood Count 6.0 K/uL N 3.1-10.7 Red Blood Count 4.93 M/uL N 3.90-5.40 Hemoglobin 14.9 gm/dL N 11.6-15.8 Hematocrit 42.6 % N 36.0-46.1 Mean Cell Volume 86.4 fl N 80.9-99.0 Mean Corpuscular HGB 30.2 pg N 25.9-32.7 Mean Corpuscular HGB Conc 35.0 g/dL High 30.8-34.3 Platelet Count 203 K/uL N 150-400 Red Cell Distri Width %CV 12.0 % N 11.7-14.4 Mean Platelet Volume 10.8 fL N 8.9-12.4 Hemoglobin/Hematocrit 10/30/2016 [facility] Hemoglobin 11.4 gm/dL Low 11.6- 15.8 15 Hematocrit 33.9 % Low 36.0-46.1 Laboratory test 10/29/2016 [facility] Screen NEGATIVE N 16 finding CBC 10/27/2016 [facility] White Blood Count 11.4 K/uL High 3.1-10.7 17 Red Blood Count 3.96 M/uL N 3.90-5.40 Hemoglobin 12.7 gm/dL N 11.6-15.8 Hematocrit 36.5 % N 36.0-46.1 Mean Cell Volume 92.2 fl N 80.9-99.0 Mean Corpuscular HGB 32.1 pg N 25.9-32.7 Mean Corpuscular HGB Conc 34.8 g/dL High 30.8-34.3 Platelet Count 148 K/uL Low 155-360 Red Cell Distri Width %CV 13.9 % N 11.7-14.4 Mean Platelet Volume 11.7 fL N 8.9-12.4 Laboratory 10/09/2016 [facility] Treponema Antibody Nonreactive N Nonreactive 18, 19 test finding [facility] 10/09/2016 [facility] Antibody D N 20 test finding Identification Ua RFX Micro & 10/09/2016 [facility] Urine Color YELLOW N Yellow Culture II Urine Clarity CLEAR N Clear Urine Glucose - Dipstick NEGATIVE mg/dL N Negative Urine Bilirubin - Dipstick NEGATIVE N Negative Urine Ketone 15 mg/dL High Negative Urine Specific [place] 1.020 N 1.010-1.030 Urine Blood NEGATIVE N Negative Urine PH 6.0 Low 6.5-7.5 Urine Protein - Dipstick NEGATIVE mg/dL N Negative Urine Urobilinogen - Dipstick 0.2 E.U./dL N 0.2-1.0 Urine Nitrite - Dipstick NEGATIVE N Negative Urine Leuk Esterase NEGATIVE N Negative Source: URINE, CLEAN CAT <SEE NOTE> 21 CBC 10/09/2016 [facility] White Blood Count 12.1 K/uL High 3.1-10.7 Red Blood Count 4.11 M/uL N 3.90-5.40 Hemoglobin 12.9 gm/dL N 11.6-15.8 Hematocrit 37.9 % N 36.0-46.1 Mean Cell Volume 92.2 fl N 80.9-99.0 Mean Corpuscular HGB 31.4 pg N 25.9-32.7 Mean Corpuscular HGB Conc 34.0 g/dL N 30.8-34.3 Platelet Count 165 K/uL N 155-360 Red Cell Distri Width %CV 13.8 % N 11.7-14.4 Mean Platelet Volume 11.8 fL N 8.9-12.4 Type And Screen 10/09/2016 [facility] Patient Blood Type A NEG N Antibody Screen POSITIVE Abnormal Negative CBC 10/07/2016 [facility] White Blood Count 11.6 K/uL High 3.1-10.7 22 Red Blood Count 4.01 M/uL N 3.90-5.40 Hemoglobin 12.6 gm/dL N 11.6-15.8 Hematocrit 36.7 % N 36.0-46.1 Mean Cell Volume 91.5 fl N 80.9-99.0 Mean Corpuscular HGB 31.4 pg N 25.9-32.7 Mean Corpuscular HGB Conc 34.3 g/dL N 30.8-34.3 Platelet Count 174 K/uL N 155-360 Red Cell Distri Width %CV 13.6 % N 11.7-14.4 Mean Platelet Volume 11.8 fL N 8.9-12.4 Urinalysis With Microscopic 10/07/2016 [facility] Urine Color YELLOW N Yellow Urine Clarity SL CLOUDY N Clear Urine Glucose - Dipstick NEGATIVE mg/dL N Negative Urine Bilirubin - Dipstick NEGATIVE N Negative Urine Ketone 15 mg/dL High Negative Urine Specific [place] 1.020 N 1.010-1.030 Urine Blood NEGATIVE N Negative Urine PH 6.5 N 6.5-7.5 Urine Protein - Dipstick NEGATIVE mg/dL N Negative Urine Urobilinogen - Dipstick 0.2 E.U./dL N 0.2-1.0 Urine Nitrite - Dipstick NEGATIVE N Negative Urine Leuk Esterase TRACE Abnormal Negative Urine RBC 0-2 rbc/hpf N 0-2 Urine WBC 2-5 wbc/hpf N 0-7 Urine Epithelial Cells MANY /lpf N None Seen 23 Urine Calcium Oxalate Crystals MODERATE N None Seen Urine Bacteria MANY Abnormal None Seen Source: URINE, CLEAN CAT <SEE NOTE> 24 Urine Culture 10/07/2016 [facility] Urine Culture MIXED URETHRAL F <SEE NOTE > 25 Quantity > 100,000 CFU/mL N 26 Laboratory test 07/14/2016 [facility] Urine Culture SPECIMEN 27 finding [address] DESCRI> (607)- - Laboratory test 12/28/2015 [facility] Urine HCG NEGATIVE Negative 28 finding (Qualitative) Urine Screen 12/28/2015 [facility] Urine Color DK YELLOW Yellow Urine Clarity SL CLOUDY Clear Urine Glucose - Dipstick NEGATIVE mg/dL Negative Urine Bilirubin - Dipstick NEGATIVE Negative Urine Ketone NEGATIVE mg/dL Negative Urine Specific [place] 1.025 1.010-1.030 Urine Blood NEGATIVE Negative Urine PH 6.0 Low 6.5-7.5 Urine Protein - Dipstick NEGATIVE mg/dL Negative Urine Urobilinogen - Dipstick 0.2 E.U./dL 0.2-1.0 Urine Nitrite - Dipstick NEGATIVE Negative Urine Leuk Esterase NEGATIVE Negative Laboratory test 11/10/2015 [facility] Erythrocyte Sed Rate 10 mm/Hr N 0-14 finding Kathleen (Antinuclear Antibodies) Negative N Negative CBC No Diff 11/10/2015 [facility] White Blood Count 5.4 10^3/uL N 3.5 -10.8 Red Blood Count 4.84 10^6/uL N 4.0-5.4 Hemoglobin 15.2 g/dL N 12.0-16.0 Hematocrit 45 % N 35-47 Mean Corpuscular Volume 92 fL N 80-97 Mean Corpuscular Hemoglobin 32 pg High 27-31 Mean Corpuscular HGB Conc 34 g/dL N 31-36 Red Cell Distribution Width 12 % N 10.5-15 Platelet Count 205 10^3/uL N 150-450 Mean Platelet Volume 10 um3 N 7.4-10.4 Laboratory test 11/10/2015 [facility] TSH (Thyroid 1.30 ?IU/mL N 0.34 -5.60 finding Stim Horm) Laboratory test 09/19/2015 [facility] HCG, Quant 16957.0 29 finding mIU/mL CBC 09/19/2015 [facility] White Blood 6.9 K/uL 3.1-10.7 Count Red Blood Count 4.29 M/uL 3.90-5.40 Hemoglobin 14.0 gm/dL 11.6-15.8 Hematocrit 39.1 % 36.0-46.1 Mean Cell Volume 91.1 fl 80.9-99.0 Mean Corpuscular HGB 32.6 pg 25.9-32.7 Mean Corpuscular HGB Conc 35.8 g/dL High 30.8-34.3 Platelet Count 193 K/uL 155-360 Red Cell Distri Width %CV 12.1 % 11.7-14.4 Mean Platelet Volume 11.3 fL 8.9-12.4 Urine Screen 09/19/2015 [facility] Urine Color DK YELLOW Yellow Urine Clarity SL CLOUDY Clear Urine Glucose - Dipstick NEGATIVE mg/dL Negative Urine Bilirubin - Dipstick SMALL High Negative Urine Ketone NEGATIVE mg/dL Negative Urine Specific [place] 1.010 1.010-1.030 Urine Blood TRACE Negative Urine PH 7.0 6.5-7.5 Urine Protein - Dipstick NEGATIVE mg/dL Negative Urine Urobilinogen - Dipstick 0.2 E.U./dL 0.2-1.0 Urine Nitrite - Dipstick NEGATIVE Negative Urine Leuk Esterase NEGATIVE Negative Type And Screen 09/19/2015 [facility] Patient Blood Type A NEG Antibody Screen Negative Negative Laboratory test finding 08/06/2015 [facility] HCG, Quant 776.0 mIU/mL 30 Comprehensive Metabolic Panel 08/06/2015 [facility] Glucose 76 mg/dL 74- 106 BUN 8 [...] 51 U/L 45-117 CBC W/Automated Diff 08/06/2015 [facility] White Blood Count 7.7 K/uL 3.1- 10.7 [...] % 40.4-72.8 Lymph % 26.5 % 17.0-46.1 [place] % 7.5 % 4.3-13.2 Eo% 1.0 % 0.0-6.6 Bas% 0.3 % 0.0-1.1 Neut# 4.98 K/uL 1.0-7.0 Lymph # 2.04 K/uL 1.8-7.0 [place] # 0.58 K/uL 0.3-0.9 Eos # 0.08 K/uL 0.0-0.5 Baso # 0.02 K/uL 0.0-0.1 Comprehensive Metabolic Panel 07/16/2015 [facility] Glucose 75 mg/dL 74- 106 BUN 11 [...] 62 U/L 45-117 Chlamydia/GC Charisse, Urine 07/16/2015 [facility] Chlamydia/GC Charisse, Urine See Note 35 Laboratory test finding 07/16/2015 [facility] Antibody Detection See Note 36 Genital Culture W/ Gram 07/16/2015 [facility] Gram Stain See Note 37 Stain Genital Culture See Note 38 CBS W/Automated Diff 07/16/2015 [facility] White Blood Count 7.2 K/uL 3.1- 10.7 [...] % 40.4-72.8 Lymph % 25.9 % 17.0-46.1 [place] % 7.3 % 4.3-13.2 Eo% 1.5 % 0.0-6.6 Bas% 0.4 % 0.0-1.1 Neut# 4.65 K/uL 1.0-7.0 Lymph # 1.86 K/uL 1.8-7.0 [place] # 0.52 K/uL 0.3-0.9 Eos # 0.11 K/uL 0.0-0.5 Baso # 0.03 K/uL 0.0-0.1 Comprehensive Metabolic Panel 07/16/2015 [facility] Glucose 75 mg/dL 74- 106 BUN 11 [...] 62 U/L 45-117 Chlamydia/GC Charisse, Urine 07/16/2015 [facility] Chlamydia/GC Charisse, Urine See Note 41 Laboratory test finding 07/16/2015 [facility] Antibody Detection See Note 42 Genital Culture W/ Gram 07/16/2015 [facility] Gram Stain See Note 43 Stain Genital Culture See Note 44 CBS W/Automated Diff 07/16/2015 [facility] White Blood Count 7.2 K/uL 3.1- 10.7 [...] % 40.4-72.8 Lymph % 25.9 % 17.0-46.1 [place] % 7.3 % 4.3-13.2 Eo% 1.5 % 0.0-6.6 Bas% 0.4 % 0.0-1.1 Neut# 4.65 K/uL 1.0-7.0 Lymph # 1.86 K/uL 1.8-7.0 [place] # 0.52 K/uL 0.3-0.9 Eos # 0.11 K/uL 0.0-0.5 Baso # 0.03 K/uL 0.0-0.1 Comprehensive Metabolic Panel 07/16/2015 [facility] Glucose 75 mg/dL 74- 106 BUN 11 [...] 62 U/L 45-117 Chlamydia/GC Charisse, Urine 07/16/2015 [facility] Chlamydia/GC Charisse, Urine See Note 47 Laboratory test finding 07/16/2015 [facility] Antibody Detection See Note 48 Genital Culture W/ Gram 07/16/2015 [facility] Gram Stain See Note 49 Stain Genital Culture See Note 50 CBS W/Automated Diff 07/16/2015 [facility] White Blood Count 7.2 K/uL 3.1- 10.7 [...] % 40.4-72.8 Lymph % 25.9 % 17.0-46.1 [place] % 7.3 % 4.3-13.2 Eo% 1.5 % 0.0-6.6 Bas% 0.4 % 0.0-1.1 Neut# 4.65 K/uL 1.0-7.0 Lymph # 1.86 K/uL 1.8-7.0 [place] # 0.52 K/uL 0.3-0.9 Eos # 0.11 K/uL 0.0-0.5 Baso # 0.03 K/uL 0.0-0.1 CBS W/Automated Diff 07/16/2015 [facility] White Blood Count 7.2 K/uL 3.1- 10.7 [...] % 40.4-72.8 Lymph % 25.9 % 17.0-46.1 [place] % 7.3 % 4.3-13.2 Eo% 1.5 % 0.0-6.6 Bas% 0.4 % 0.0-1.1 Neut# 4.65 K/uL 1.0-7.0 Lymph # 1.86 K/uL 1.8-7.0 [place] # 0.52 K/uL 0.3-0.9 Eos # 0.11 K/uL 0.0-0.5 Baso # 0.03 K/uL 0.0-0.1 Genital Culture W/ Gram Stain 07/16/2015 [facility] Gram Stain See Note 51 Genital Culture See Note 52 Laboratory test finding 07/16/2015 [facility] Antibody Detection See Note 53 Chlamydia/GC Charisse, Urine 07/16/2015 [facility] Chlamydia/GC Charisse, See Note 54 Urine Comprehensive Metabolic 07/16/2015 [facility] Glucose 75 mg/dL 74-106 Panel BUN 11 [...] 62 U/L 45-117 CBS W/Automated Diff 07/16/2015 [facility] White Blood Count 7.2 K/uL 3.1- 10.7 [...] % 40.4-72.8 Lymph % 25.9 % 17.0-46.1 [place] % 7.3 % 4.3-13.2 Eo% 1.5 % 0.0-6.6 Bas% 0.4 % 0.0-1.1 Neut# 4.65 K/uL 1.0-7.0 Lymph # 1.86 K/uL 1.8-7.0 [place] # 0.52 K/uL 0.3-0.9 Eos # 0.11 K/uL 0.0-0.5 Baso # 0.03 K/uL 0.0-0.1 Genital Culture W/ Gram Stain 07/16/2015 [facility] Gram Stain See Note 57 Genital Culture See Note 58 Laboratory test finding 07/16/2015 [facility] Antibody Detection See Note 59 Chlamydia/GC Charisse, Urine 07/16/2015 [facility] Chlamydia/GC Charisse, See Note 60 Urine Comprehensive Metabolic 07/16/2015 [facility] Glucose 75 mg/dL 74-106 Panel BUN 11 [...] 62 U/L 45-117 CBS W/Automated Diff 07/16/2015 [facility] White Blood Count 7.2 K/uL 3.1- 10.7 [...] % 40.4-72.8 Lymph % 25.9 % 17.0-46.1 [place] % 7.3 % 4.3-13.2 Eo% 1.5 % 0.0-6.6 Bas% 0.4 % 0.0-1.1 Neut# 4.65 K/uL 1.0-7.0 Lymph # 1.86 K/uL 1.8-7.0 [place] # 0.52 K/uL 0.3-0.9 Eos # 0.11 K/uL 0.0-0.5 Baso # 0.03 K/uL 0.0-0.1 Genital Culture W/ Gram Stain 07/16/2015 [facility] Gram Stain See Note 63 Genital Culture See Note 64 Laboratory test 07/16/2015 [facility] Antibody Detection See Note 65 finding Panel [id number] 07/16/2015 [facility] Panel [id number] See Note 66 CBS W/Automated Diff 07/16/2015 [facility] White Blood Count 7.2 K/uL 3.1- 10.7 [...] % 40.4-72.8 Lymph % 25.9 % 17.0-46.1 [place] % 7.3 % 4.3-13.2 Eo% 1.5 % 0.0-6.6 Bas% 0.4 % 0.0-1.1 Neut# 4.65 K/uL 1.0-7.0 Lymph # 1.86 K/uL 1.8-7.0 [place] # 0.52 K/uL 0.3-0.9 Eos # 0.11 K/uL 0.0-0.5 Baso # 0.03 K/uL 0.0-0.1 Comprehensive Metabolic Panel 07/16/2015 [facility] Glucose 75 mg/dL 74- 106 BUN 11 [...] 62 U/L 45-117 Chlamydia/GC Charisse, Urine 07/16/2015 [facility] Chlamydia/GC Charisse, Urine See Note 69 Laboratory test finding 07/16/2015 [facility] Antibody Detection See Note 70 Genital Culture W/ Gram 07/16/2015 [facility] Gram Stain See Note 71 Stain Genital Culture See Note 72 CBS W/Automated Diff 07/16/2015 [facility] White Blood Count 7.2 K/uL 3.1- 10.7 [...] % 40.4-72.8 Lymph % 25.9 % 17.0-46.1 [place] % 7.3 % 4.3-13.2 Eo% 1.5 % 0.0-6.6 Bas% 0.4 % 0.0-1.1 Neut# 4.65 K/uL 1.0-7.0 Lymph # 1.86 K/uL 1.8-7.0 [place] # 0.52 K/uL 0.3-0.9 Eos # 0.11 K/uL 0.0-0.5 Baso # 0.03 K/uL 0.0-0.1 Comprehensive Metabolic Panel 07/16/2015 [facility] Glucose 75 mg/dL 74- 106 BUN 11 [...] 62 U/L 45-117 Chlamydia/GC [place], Urine 07/16/2015 [facility] Chlamydia/[facility] [place], Urine See Note 75 Laboratory test finding 07/16/2015 [facility] Antibody Detection See Note 76 Genital Culture W/ Gram 07/16/2015 [facility] Gram Stain See Note 77 Stain Genital Culture See Note 78 Genital Culture W/ Gram 07/16/2015 [facility] Genital Culture W/ Gram See Note 79 Stain Stain Gram Stain See Note 80 Genital Culture See Note 81 Laboratory test 07/16/2015 [facility] Antibody Detection See Note 82 finding Chlamydia/GC [facility], 07/16/2015 [facility] Chlamydia/[facility] [place], See Note 83 Urine Urine CBC W/Automated Diff 07/16/2015 [facility] White Blood Count 7.2 K/uL 3.1- 10.7 [...] % 40.4-72.8 Lymph % 25.9 % 17.0-46.1 [place] % 7.3 % 4.3-13.2 Eo% 1.5 % 0.0-6.6 Bas% 0.4 % 0.0-1.1 Neut# 4.65 K/uL 1.0-7.0 Lymph # 1.86 K/uL 1.8-7.0 [place] # 0.52 K/uL 0.3-0.9 Eos # 0.11 K/uL 0.0-0.5 Baso # 0.03 K/uL 0.0-0.1 Comprehensive Metabolic Panel 07/16/2015 [facility] Glucose 75 mg/dL 74- 106 BUN 11 [...] Phosphatase 62 U/L 45-117 Chlamydia/GC [facility], 07/16/2015 [facility] Chlamydia/[facility] [place], See Note 86 Urine Urine Comprehensive 07/16/2015 [facility] Glucose 75 mg/dL 74-106 Metabolic Panel BUN [...] 62 U/L 45-117 CBS W/Automated Diff 07/16/2015 [facility] White Blood Count 7.2 K/uL 3.1- 10.7 [...] % 40.4-72.8 Lymph % 25.9 % 17.0-46.1 [place] % 7.3 % 4.3-13.2 Eo% 1.5 % 0.0-6.6 Bas% 0.4 % 0.0-1.1 Neut# 4.65 K/uL 1.0-7.0 Lymph # 1.86 K/uL 1.8-7.0 [place] # 0.52 K/uL 0.3-0.9 Eos # 0.11 K/uL 0.0-0.5 Baso # 0.03 K/uL 0.0-0.1 Comprehensive Metabolic Panel 07/16/2015 [facility] Glucose 75 mg/dL 74- 106 BUN 11 [...] 62 U/L 45-117 Chlamydia/GC [place], Urine 07/16/2015 [facility] Chlamydia/GC [place], Urine See Note 91 Laboratory test finding 07/16/2015 [facility] Antibody Detection See Note 92 Genital Culture W/ Gram 07/16/2015 [facility] Gram Stain See Note 93 Stain Genital Culture See Note 94 CBS W/Automated Diff 07/16/2015 [facility] White Blood Count 7.2 K/uL 3.1- 10.7 [...] % 40.4-72.8 Lymph % 25.9 % 17.0-46.1 [place] % 7.3 % 4.3-13.2 Eo% 1.5 % 0.0-6.6 Bas% 0.4 % 0.0-1.1 Neut# 4.65 K/uL 1.0-7.0 Lymph # 1.86 K/uL 1.8-7.0 [place] # 0.52 K/uL 0.3-0.9 Eos # 0.11 K/uL 0.0-0.5 Baso # 0.03 K/uL 0.0-0.1 Comprehensive Metabolic Panel 07/16/2015 [facility] Glucose 75 mg/dL 74- 106 BUN 11 [...] 62 U/L 45-117 Chlamydia/GC Charisse, Urine 07/16/2015 [facility] Chlamydia/GC Charisse, Urine See Note 97 Laboratory test finding 07/16/2015 [facility] Antibody Detection See Note 98 Genital Culture W/ Gram 07/16/2015 [facility] Gram Stain See Note 99 Stain Genital Culture See Note 100 CBS W/Automated Diff 07/16/2015 [facility] White Blood Count 7.2 K/uL 3.1- 10.7 [...] % 40.4-72.8 Lymph % 25.9 % 17.0-46.1 [place] % 7.3 % 4.3-13.2 Eo% 1.5 % 0.0-6.6 Bas% 0.4 % 0.0-1.1 Neut# 4.65 K/uL 1.0-7.0 Lymph # 1.86 K/uL 1.8-7.0 [place] # 0.52 K/uL 0.3-0.9 Eos # 0.11 K/uL 0.0-0.5 Baso # 0.03 K/uL 0.0-0.1 Comprehensive Metabolic Panel 07/16/2015 [facility] Glucose 75 mg/dL 74- 106 BUN 11 [...] 62 U/L 45-117 Chlamydia/GC Charisse, Urine 07/16/2015 [facility] Chlamydia/GC Charisse, Urine See Note 103 Laboratory test finding 07/16/2015 [facility] Antibody Detection See Note 104 Genital Culture W/ Gram 07/16/2015 [facility] Gram Stain See Note 105 Stain Genital Culture See Note 106 CBS W/Automated Diff 07/16/2015 [facility] White Blood Count 7.2 K/uL 3.1- 10.7 [...] % 40.4-72.8 Lymph % 25.9 % 17.0-46.1 [place] % 7.3 % 4.3-13.2 Eo% 1.5 % 0.0-6.6 Bas% 0.4 % 0.0-1.1 Neut# 4.65 K/uL 1.0-7.0 Lymph # 1.86 K/uL 1.8-7.0 [place] # 0.52 K/uL 0.3-0.9 Eos # 0.11 K/uL 0.0-0.5 Baso # 0.03 K/uL 0.0-0.1 Comprehensive Metabolic Panel 07/16/2015 [facility] Glucose 75 mg/dL 74- 106 BUN 11 [...] 62 U/L 45-117 Chlamydia/GC Charisse, Urine 07/16/2015 [facility] Chlamydia/GC Charisse, Urine See Note 109 Laboratory test finding 07/16/2015 [facility] Antibody Detection See Note 110 Genital Culture W/ Gram 07/16/2015 [facility] Gram Stain See Note 111 Stain Genital Culture See Note 112 Laboratory test 06/01/2015 [facility] Urine Culture SEE RESULT 113 finding BELOW Laboratory test 01/19/2015 [facility] HCG, Quant 5.0 mIU/mL 114 finding CBS W/Automated 01/19/2015 [facility] White Blood 8.1 K/uL 3.1-10. Diff Count [...] % 40.4-72.8 Lymph % 22.5 % 17.0-46.1 [place] % 7.8 % 4.3-13.2 Eo% 1.0 % 0.0-6.6 Bas% 0.4 % 0.0-1.1 Neut# 5.55 K/uL 1.0-7.0 Lymph # 1.83 K/uL 1.8-7.0 [place] # 0.63 K/uL 0.3-0.9 Eos # 0.08 K/uL 0.0-0.5 Baso # 0.03 K/uL 0.0-0.1 Type And Screen 01/19/2015 [facility] Patient Blood Type A NEG Antibody Screen Negative Negative Laboratory test 01/19/2015 [facility] RhIMMUNE Globulin See Note 115 finding 26-28 Weeks Chlamydia/GC 01/19/2015 [facility] Chlamydia Negative Negative Amplification Trachomatis, Charisse Neisseria Gonorrhoeae, Charisse Negative Negative Please note: See Note 116 Laboratory test 01/19/2015 [facility] Urine HCG NEGATIVE Negative 117 finding (Qualitative) Urinalysis With 01/19/2015 [facility] Urine Color LIGHT BROWN Yellow Microscopic Urine Clarity SL CLOUDY Clear Urine Glucose - Dipstick NEGATIVE mg/dL Negative Urine Bilirubin - Dipstick NEGATIVE Negative Urine Ketone NEGATIVE mg/dL Negative Urine Specific [place] >=1.030 1.010-1.030 Urine Blood LARGE High Negative Urine PH 6.0 Low 6.5-7.5 Urine Protein - Dipstick NEGATIVE mg/dL Negative Urine Urobilinogen - Dipstick 0.2 E.U./dL 0.2-1.0 Urine Nitrite - Dipstick NEGATIVE Negative Urine Leuk Esterase NEGATIVE Negative Urine RBC >50 rbc/hpf High 0-7 Urine WBC 0-2 wbc/hpf 0-7 Urine Epithelial Cells FEW NONESEEN/lpf Urine Bacteria VERY FEW NONESEEN Affirm 01/19/2015 [facility] Trichomonas vaginalis Negative [Negative] Gardnerella vaginalis Negative [Negative] Vania species Negative [Negative] Urine Screen 01/19/2015 [facility] Urine Screen See Note 118 Comprehensive Metabolic Panel 01/17/2015 [facility] Glucose 87 mg/dL 74- 106 BUN 11 [...] 57 U/L 45-117 CBC W/Automated Diff 01/17/2015 [facility] White Blood Count 8.3 K/uL 3.1- 10.7 [...] % 40.4-72.8 Lymph % 24.7 % 17.0-46.1 [place] % 7.7 % 4.3-13.2 Eo% 0.8 % 0.0-6.6 Bas% 0.4 % 0.0-1.1 Neut# 5.53 K/uL 1.0-7.0 Lymph # 2.06 K/uL 1.8-7.0 [place] # 0.64 K/uL 0.3-0.9 Eos # 0.07 K/uL 0.0-0.5 Baso # 0.03 K/uL 0.0-0.1 Laboratory test 01/17/2015 [facility] HCG, Quant 25.0 mIU/mL 120 finding Throat Culture 09/30/2014 [facility] Throat Culture See Note 121 Complete Complete Laboratory test 08/05/2014 [facility] Beta HCG < 0.60 N 0.0-5 122, 123 finding Quantitative IU/mL .0 1 NORMAL KIDNEY FUNCTION OR MILD DISEASE - GFR >OR=60 CHRONIC KIDNEY DISEASE - GFR 15 - 59 RENAL FAILURE - GFR <15 Est. GFR calculation based on the MDRD study equation, which assumes a steady state for creatinine. Est. GFR should not be used for medication dosing. 2 Performed using [employer] immunoassay. Care must be taken when interpreting [...] - 189 VERY HIGH > 189 6 [id number] SEE RESULT BELOW Name: MECCA CABAN : [address]: Nithin Guzman MD Acct: [id number] Unit: [id number] AGE: 27 Location: [facility] Re04/13/18 SEX: F Status: DEP ER SPEC: [id number] FAZAL: 04/13/18-[address] [facility] [address]: Nithin Guzman MD REQ: [id number] RECD: 04/13/18 STATUS: JORDI BRASWELL DR: Barb Newman MD [facility] _ SOURCE: URINE SPDESC: ORDERED: Urine Culture COMMENTS: [id number] Procedure Result Reported Site Urine Culture Final 04/15/18- 0903 ML Organism 1 ESCHERICHIA COLI [place] Count >100,000 (Many) CFU/ML 1. ESCHERICHIA COLI [...] . END OF REPORT DEPARTMENT OF PATHOLOGY, [address] [place] [address] Jama Butler M.D. Director [facility] # [id number] Receptionist [employer]: [id number] CONSULT [id number] 10 MIXED URETHRAL BROCK 11 > 100,000 [...] BROCK 113 SEE RESULT BELOW Name: MECCA CABAN : [address]: Андрей Myrick MD Acct: [id number] Unit: [id number] AGE: 24 Location: [facility] Re06/01/15 SEX: F Status: DEP ER SPEC: [id number] FAZAL: 06/01/15-[address] [facility] [address]: Андрей Myrick MD REQ: [id number] RECD: 06/01/15-1245 STATUS: JORDI BRASWELL DR: Barb Newman MD [facility] _ SOURCE: URINE SPDESC: ORDERED: Urine Culture Procedure Result Verified Site Urine Culture Final 06/03/15- 0853 ML Organism 1 ESCHERICHIA COLI [place] Count 10-25,000 (Moderate) CFU/ML 1. ESCHERICHIA COLI [...] antibiotic reporting. * ML - MAIN LAB ([facility]) . END OF REPORT * ML=Testing performed at Main Lab DEPARTMENT OF PATHOLOGY, [address] [place] [address] Jama Butler M.D. Director [facility] # [id number] 114 Approximate Gestational Age and Total BHCG Range: 0.2 - 1 Week........................5-50 mIU/mL 1 - 2 Weeks.....................50-500 mIU/mL 2 - 3 Weeks..................100-5,000 mIU/mL 3 - 4 Weeks.................500-10,000 mIU/mL 4 - 5 Weeks...............1,000-50,000 mIU/mL 5 - 6 Weeks.............10,000-100,000 mIU/mL 6 - 8 Weeks.............15,000-200,000 mIU/mL 2 - 3 Months............10,000-100,000 mIU/mL 115 -------- Issue -------- Unit # Bld Type Product Status Date Time User Rsrvd [id number] RHOGAM PRSMD TRFSD 01/19/15 1315 LAB.GSP Unit Satisfactory? No Apparent Contamination Volume: 2 ML TX Begin: 01/19/15 By AutoD[employer] [place] End: 01/19/15 By [facility] 116 Acceptable specimens for this test are male urethral swab, endocervical swab and liquid based pap specimens, vaginal swabs in APTIMA transports and first void urine. See online Directory of Services for test number for rectal and pharyngeal specimens. Performed at: RN - [facility] [address] [id number] [employer] Teacher: Delisa Perales MD, Phone: [phone] 117 FIRST MORNING SPECIMENS GENERALLY CONTAIN THE HIGHEST CONCENTRATION OF HCG AND ARE RECOMMENDED FOR EARLY DETECTION OF . 118 01/19/15 LAB.DWM [facility] Note: Persistent reduction for 3 months [...] Positive Procedures Date Code Description Status 04/29/2016 64121 Spirometry Completed 04/29/2016 56574 Tympanometry Completed 09/24/2015 08241 Spirometry Completed 09/24/2015 43822 Tympanometry Completed 04/23/2015 73629 Visual Screening Test Completed 04/23/2015 06985 Audiometry, Bek[place], Screening Completed 07/12/2014 06849 Visual Screening Test Completed 07/12/2014 73895 Diagnostic Bekesy Audiometry Completed Encounters Type Date Location Provider Dx Diagnosis Office Visit 11/01/2018 [facility] Radhames Alexandre, F17.210 Nicotine dependence, 11:00a N.P. cigarettes, uncomplicated L20.9 Atopic dermatitis, unspecified J30.9 Allergic rhinitis, unspecified E66.01 Morbid (severe) obesity due to excess calories F90.2 Attention-deficit hyperactivity disorder, combined type K02.9 Dental caries, unspecified M54.5 Low back pain F41.9 Anxiety disorder, unspecified R53.83 Other fatigue I83.90 Asymptomatic varicose veins of unspecified lower extremity E78.2 Mixed hyperlipidemia K21.9 Gastro-esophageal reflux disease without esophagitis Z68.42 Body mass index (BMI) 45.0-49.9, adult Office Visit 09/25/2018 11:30a [facility] Radhames Alexandre, F17.210 Nicotine dependence, N.P. cigarettes, [...] (BMI) 45.0-49.9, adult Office Visit 08/23/2018 11:30a [facility] Radhames Alexandre, F17.210 Nicotine dependence, N.P. cigarettes, uncomplicated L20.9 Atopic dermatitis, unspecified J30.9 Allergic rhinitis, unspecified E66.01 Morbid (severe) obesity due to excess calories F90.2 Attention-deficit hyperactivity disorder, combined type K02.9 Dental caries, unspecified M54.5 Low back pain F41.9 Anxiety disorder, unspecified Z23 Encounter for immunization R53.83 Other fatigue Z68.42 Body mass index (BMI) 45.0-49.9, adult Office Visit 08/07/2018 11:00a [facility] Radhames Alexandre, F17.210 Nicotine dependence, N.P. cigarettes, uncomplicated L20.9 Atopic dermatitis, unspecified J30.9 Allergic rhinitis, unspecified E66.01 Morbid (severe) obesity due to excess calories F90.2 Attention-deficit hyperactivity disorder, combined type K02.9 Dental caries, unspecified M54.5 Low back pain F41.9 Anxiety disorder, unspecified Z68.42 Body mass index (BMI) 45.0-49.9, adult Office Visit 01/26/2018 1:15p [facility] Trent Faviancherise F17.210 Nicotine dependence, Josette Chand. cigarettes, uncomplicated L20.9 Atopic dermatitis, unspecified J30.9 Allergic rhinitis, unspecified E66.01 Morbid (severe) obesity due to excess calories F90.2 Attention-deficit hyperactivity disorder, combined type K02.9 Dental caries, unspecified Z00.01 Encounter for general adult medical exam w abnormal findings Z68.42 Body mass index (BMI) 45.0-49.9, adult Office Visit 03/28/2017 10:00a [facility] Roque Kim F90.2 Attention- deficit REFINING SUPERVISOR hyperactivity disorder, combined type F17.210 Nicotine dependence, cigarettes, uncomplicated R19.7 Diarrhea, unspecified Office Visit 08/09/2016 1:30p [facility] JulioRoque J01.40 Acute pansinusitis, REFINING SUPERVISOR unspecified R05 Cough R50.9 Fever, unspecified F17.210 Nicotine dependence, cigarettes, uncomplicated Z33.1 state, incidental Office Visit 07/14/2016 9:45a [facility] Roque Kim N39.0 Urinary tract REFINING SUPERVISOR infection, site not specified R30.0 Dysuria R39.15 Urgency of urination Office Visit 06/14/2016 10:00a [facility] Roque Kim F17.210 Nicotine dependence, REFINING SUPERVISOR cigarettes, uncomplicated M25.531 Pain in right wrist Z33.1 state, incidental Office Visit 04/29/2016 1:30p [facility] Trent Faviancherise J20.9 Acute bronchitis, Isaac Chand unspecified J01.40 Acute pansinusitis, unspecified H66.93 Otitis media, unspecified, bilateral R05 Cough R09.81 Nasal congestion R50.9 Fever, unspecified F17.210 Nicotine dependence, cigarettes, uncomplicated F90.0 Attn-defct hyperactivity disorder, predom inattentive type E66.01 Morbid (severe) obesity due to excess calories M54.42 Lumbago with sciatica, left side Office Visit 02/09/2016 10:15a [facility] Roque Kim K12.2 Cellulitis and REFINING SUPERVISOR abscess of mouth M54.42 Lumbago with sciatica, left side E66.01 Morbid (severe) obesity due to excess calories F90.0 Attn-defct hyperactivity disorder, predom inattentive type F17.200 Nicotine dependence, unspecified, uncomplicated Office Visit 01/28/2016 10:45a [facility] Roque Kim M54.42 Lumbago with REFINING SUPERVISOR sciatica, left side E66.01 Morbid (severe) obesity due to excess calories F90.0 Attn-defct hyperactivity disorder, predom inattentive type J01.80 Other acute sinusitis Z98.818 Other dental procedure status Office Visit 12/31/2015 9:45a [facility] Roque Kim M54.42 Lumbago with REFINING SUPERVISOR sciatica, left side E66.01 Morbid (severe) obesity due to excess calories F90.0 Attn-defct hyperactivity disorder, predom inattentive type F17.200 Nicotine dependence, unspecified, uncomplicated Office Visit 11/26/2015 3:45p [facility] Roque Kim M54.42 Lumbago with REFINING SUPERVISOR sciatica, left side E66.01 Morbid (severe) obesity due to excess calories F90.0 Attn-defct hyperactivity disorder, predom inattentive type F17.200 Nicotine dependence, unspecified, uncomplicated Office Visit 10/29/2015 3:45p [facility] Roque Kim F17.200 Nicotine dependence, REFINING SUPERVISOR unspecified, uncomplicated E66.01 Morbid (severe) obesity due to excess calories F90.0 Attn-defct hyperactivity disorder, predom inattentive type Office Visit 10/08/2015 9:45a [facility] Roque Kim F17.200 Nicotine dependence, REFINING SUPERVISOR unspecified, uncomplicated J01.80 Other acute sinusitis J06.9 Acute upper respiratory infection, unspecified R05 Cough R50.9 Fever, unspecified B37.3 Candidiasis of vulva and vagina Office Visit 09/24/2015 8:30a [facility] Roque Kim F90.0 Attn-defct REFINING SUPERVISOR hyperactivity disorder, predom inattentive type F17.200 Nicotine dependence, unspecified, uncomplicated J01.80 Other acute sinusitis J06.9 Acute upper respiratory infection, unspecified R05 Cough R50.9 Fever, unspecified Office Visit 08/06/2015 10:15a [facility] Roque Kim REFINING SUPERVISOR 787.02 Nausea Alone 780.79 Malaise And Fatigue Other 626.0 Menstruation Absence 300.00 Anxiety State Unspec 305.1 Tobacco Use Disorder Office Visit 07/16/2015 1:45p [facility] Roque Kim 616.10 Vaginitis & REFINING SUPERVISOR Vulvovaginitis Unspec 314.00 Attention Deficit Disorder W/O Mention Of Hyperactivity 300.00 Anxiety State Unspec Office Visit 05/22/2015 1:30p Roque Fink REFINING SUPERVISOR 724.2 Lumbago 846.0 Sprains & Strains Sacroiliac Region Lumbosacral (Joint)(Liga 724.3 Sciatica 305.1 Tobacco Use Disorder Office Visit 04/23/2015 1:30p [facility] Roque iKm V70.0 Examination General REFINING SUPERVISOR Medical Routine AT Health Care Facility V70.0 Examination General Medical Routine AT Health Care Facility 724.2 Lumbago 846.0 Sprains & Strains Sacroiliac Region Lumbosacral (Joint)(Liga 314.00 Attention Deficit Disorder W/O Mention Of Hyperactivity 300.00 Anxiety State Unspec Office Visit 03/24/2015 11:15a [facility] Barb Newman M.D. 724.2 Lumbago 846.0 Sprains & Strains Sacroiliac Region Lumbosacral (Joint)(Liga 789.07 Pain Abdominal Generalized 305.1 Tobacco Use Disorder 477.8 Rhinitis Allergic Due To Other Allergen 780.79 Malaise And Fatigue Other 314.00 Attention Deficit Disorder W/O Mention Of Hyperactivity 300.00 Anxiety State Unspec Office Visit 02/11/2015 11:15a [facility] Barb Newman M.D. 724.2 Lumbago 846.0 Sprains & Strains Sacroiliac Region Lumbosacral (Joint)(Liga 789.07 Pain Abdominal Generalized 305.1 Tobacco Use Disorder 477.8 Rhinitis Allergic Due To Other Allergen 780.79 Malaise And Fatigue Other Office Visit 01/17/2015 4:15p [facility] Barb Newman 789.07 Pain Abdominal M., M.D. Generalized 626.9 Menstruation & Other Abnormal Bleeding Disorders Unspec V22.2 State Incidental Normal Office Visit 09/30/2014 4:00p [facility] Sherrill Perez, 462 Pharyngitis Acute REFINING SUPERVISOR 381.10 Otitis Media Simple Or Unspec Chronic 305.1 Tobacco Use Disorder 780.60 Fever, Unspecified 786.2 Cough Office Visit 09/13/2014 4:00p [facility] Sherrill Perez, REFINING SUPERVISOR 724.2 Lumbago 724.5 Backache Unspec 724.8 Back Symptoms Other 338.19 Other Acute Pain Office Visit 08/05/2014 10:00a [facility] Sherrill Perez, 626.0 Menstruation REFINING SUPERVISOR Absence 305.1 Tobacco Use Disorder Office Visit 07/12/2014 9:00a [facility] Sherrill Perez, V70.0 Examination REFINING SUPERVISOR General Medical Routine AT Health Care Facility 528.9 Oral Soft Tissue Diseases Other & Unspec Plan of Treatment 11/01/2018 - [facility] Alexandre, N.P.F17.210 Nicotine dependence, cigarettes, uncomplicatedComments:SMOKING CESSATION [id number] Atopic dermatitis, unspecifiedComments:SKIN CARE INSTRUCTIONS LOTION OR BABY OIL 2-3 APPLICATION PER DAYUSE MOISTURIZING SOAPAVOID PROLONGED WATER EXPOSUREAVOID USING HOT WATER IN KXZAOAT76.9 Allergic rhinitis, unspecifiedComments:INCREASE PO FLUID USE ANTIHISTAMINE PRN SECOND HAND SMOKING AVOIDANCE SMOKING VHINNGGQCC46.01 Morbid (severe) obesity due to excess caloriesComments:WT LOSS COUNCELLINGEXERCISEDIET PMXARIVPLVZN00.2 Attention-deficit hyperactivity disorder, combined typeComments :COUNCELLING AND REASSURANCE RELAXATION TECHNIQUES DISCUSSEDCOUNSELED RE: STRESSORS IN LIFE AVOID ALLENERGY/HIGH CAFFEINE FGXOENG24.9 Dental caries, unspecifiedComments:F/U WITH DENTAL SMOKNG LHFDKRQFJR65.5 Low back painNew Medication:Meloxicam 7.5 mg - take one tablet by mouth twice a day-take with foodF41.9 Anxiety disorder, unspecifiedComments:COUNCELLING AND REASSURANCE RELAXATION TECHNIQUES DISCUSSEDCOUNSELED RE: STRESSORS IN LIFE AVOID ALLENERGY/ HIGH CAFFEINE DRINKSFollow up:1 month 1 month 1 vvlvcY14.83 Other fatigueComments:INCRFEASE PO FLUIDCOUNCELLING AND REASSURANCE RESTI83.90 Asymptomatic varicose veins of unspecified lower extremityComments:WT. LOSS ELEVATE LOWER EXT. ELASTIC VXSKRLXIE02.2 Mixed hyperlipidemiaComments:DIET REVIEWED CONTINUE DIETWT LOSSF/U LAB FBWK21.9 Gastro-esophageal reflux disease without esophagitisNew Medication:Omeprazole 20 mg - 1 by mouth every dayComments:AVOID CAFFEINE, ETOH AND SPICY FOODSTUMS OR MYLANTA PRN CALL WITH PROBLEMS OR VBVUJNPXE94.42 Body mass index (BMI) 45.0-49.9, adultComments:DIET EXERCISE AND WEIGHT LOSS
--- NOTE | 2018-11-19 14:59 | UC ---
Throat Pain/Nasal Biju HPI - HPI Summary HPI Summary: 28-year-old female presents with one-week history of fatigue, chills, body aches , nasal congestion, sinus pressure, bilateral ear fullness, and a nonproductive cough. She also reports onset of some left shoulder pain this morning. Denies injury. Describes pain as sharp. Worsens with any kind of movement. Denies fever, sore throat, dysphagia, chest pain, shortness of breath, abdominal pain, nausea, vomiting, or diarrhea. - History of Current Complaint Chief Complaint: UCGeneralIllness Stated Complaint: CONGESTED Time Seen by Provider: 11/19/18 14:41 Hx Obtained From: Patient Hx Last Menstrual Period: beginning of october Pain Intensity: 8 - Allergies/Home Medications Allergies/Adverse Reactions: Allergies Allergy/AdvReac Type Severity Reaction Status Date / Time No Known Allergies Allergy Verified 11/19/18 14:27 Home Medications: Home Medications Acetaminophen [Tylenol Extra Strength] 1,000 mg PO 11/19/18 [History] Citalopram TAB* [Celexa TAB*] 30 mg 11/19/18 [History] PMH/Surg Hx/FS Hx/Imm Hx Previously Healthy: Yes Psychological History: Depression - Surgical History Surgical History: Yes Surgery Procedure, Year, and Place: D&C 09/04 - Family History Known Family History: Positive: Non-Contributory - Social History Occupation: Unemployed Lives: With Family Alcohol Use: None Substance Use Type: None Smoking Status (MU): Light Every Day Tobacco Smoker Type: Cigarettes Amount Used/How Often: 5-6 CIG/DAY Length of Time of Smoking/Using Tobacco: 10 yrs Have You Smoked in the Last Year: Yes When Did the Patient Quit Smoking/Using Tobacco: working on quitting Review of Systems All Other Systems Reviewed And Are Negative: Yes Constitutional: Positive: Chills, Fatigue. Negative: Fever Eyes: Negative: Drainage, Eye Redness ENT: Positive: Ear Ache, Nasal Discharge, Sinus Congestion, Sinus Pain/ Tenderness. Negative: Sore Throat Respiratory: Positive: Cough. Negative: Shortness Of Breath Cardiovascular: Negative: Palpitations, Chest Pain Gastrointestinal: Negative: Abdominal Pain, Vomiting, Diarrhea, Nausea Motor: Negative: Weakness Neurovascular: Negative: Decreased Sensation Musculoskeletal: Positive: Arthralgia, Decreased ROM Is Patient Immunocompromised?: No Physical Exam - Summary Physical Exam Summary: GENERAL APPEARANCE: Well developed, obese female who is alert and cooperative, and appears to be in no acute distress. EYES: Conjunctiva clear. No discharge. Vision is grossly intact. EARS: External auditory canals and tympanic membranes clear, hearing grossly intact. NOSE: Mild-moderate nasal congestion with mucosal erythema and mild edema. No discharge noted. THROAT: Oral cavity and pharynx normal. No tonsilar inflammation, swelling, exudate, or lesions. Teeth and gingiva in good general condition. NECK: Neck supple, non-tender without lymphadenopathy. CARDIAC: Normal S1 and S2. No S3, S4 or murmurs. Rhythm is regular. There is no peripheral edema, cyanosis or pallor. Extremities are warm and well perfused. Capillary refill is less than 2 seconds. Peripheral pulses intact. LUNGS: Clear to auscultation and percussion without rales, rhonchi, wheezing or diminished breath sounds. ABDOMEN: Positive bowel sounds. Soft, nondistended, nontender. No guarding or rebound. No masses or hepatosplenomegally. MUSKULOSKELETAL: Tenderness over the left trapezius with some spasming noted. ROM to left shoulder mildly limited by pain especially adduction. No crepitus, deformity, erythema, or ecchymosis noted. BACK: Examination of the spine reveals normal gait and posture, no spinal deformity or tenderness. NEUROLOGICAL: Strength and sensation symmetric and intact throughout. SKIN: Skin normal color, texture and turgor with no lesions or eruptions. Triage Information Reviewed: Yes Vital Signs: Initial Vital Signs Temp 97.7 F 11/19/18 14:29 Pulse 86 11/19/18 14:29 Resp 20 11/19/18 14:29 BP 123/73 11/19/18 14:29 Pulse Ox 100 11/19/18 14:29 Throat Pain/Nasal Course/Dx - Course Course Of Treatment: 28-year-old female presents with one-week history of fatigue, chills, body aches, nasal congestion, sinus pressure, bilateral ear fullness, and a nonproductive cough. She also reports onset of some left shoulder pain this morning. Denies injury. Describes pain as sharp. Worsens with any kind of movement. Denies fever, sore throat, dysphagia, chest pain, shortness of breath, abdominal pain, nausea, vomiting, or diarrhea. Afebrile. Vital signs stable. Exam revealed some [id number] nasal congestion with mucosal erythema and mild edema, clear bilateral breath sounds, and a dry nonproductive cough. She had tenderness over the left trapezius with palpation with some mild spasming. In regards to her upper respiratory symptoms I will start her on a azithromycin considering the duration of her symptoms as well as recommend symptomatic treatment with saline rinses, fluticasone nasal spray, kpyu-nge-peuxjwr decongestant, and Tessalon Perles 3 times a day as needed for cough. No history of injury will defer x-ray of the shoulder at this time. Patient states that she is unable to tolerate NSAIDs due to upset stomach therefore recommend that she continue to use acetaminophen as needed for pain. I 'll provide her with some cyclobenzaprine 1 tablet every 8 hours as needed for severe pain and I'm recommending conservative treatment with RICE. She is to follow-up with her primary care provider in 5 days if symptoms persist. Warning symptoms are reviewed with the patient. She verbalizes understanding and agrees appointment care. - Differential Dx/Diagnosis Differential Diagnosis/HQI/PQRI: Influenza, Otitis Media, Pharyngitis, Sinusitis , URI Provider Diagnosis: Upper respiratory infection with cough and congestion, Acute pain of left shoulder Discharge - Sign-Out/Discharge Documenting (check all that apply): Patient Departure All imaging exams completed and their final reports reviewed: No Studies - Discharge Plan Condition: Stable Disposition: HOME Prescriptions: Azithromyxin ALEENA (NF) [Z-Aleena (Zithromax) 250 mg tabs #6] 2 tab PO .TODAY, THEN 1 DAILY #6 tab Benzonatate CAP* [Tessalon 100 MG CAP*] 100 mg PO TID PRN #15 cap PRN Reason: Cough Cyclobenzaprine TAB* [Flexeril 10 MG TAB*] 10 mg PO TID PRN #15 tab PRN Reason: Pain - Severe Fluticasone NASAL SPRAY 50MCG* [Flonase NASAL SPRAY 50MCG*] 2 spray BOTH NARES DAILY #1 btl Patient Education Materials: Upper Respiratory Infection (ED), Shoulder Pain ( ED) Referrals: Barb Newman MD [Primary Care Provider] - Additional Instructions: Your history and exam are consistent with an upper respiratory infection. Considering the duration of symptoms we will start you on an antibiotic. Start azithromycin 2 tabs today then 1 tab a day for next 4 days. Use a saline rinse kit such as Neti Pot or NeilMed at least twice a day to help thin secretions and promote drainage of the sinuses. Use fluticasone (Flonase) nasal spray 2 sprays each nostril once daily. Try an over the counter decongestant such as Sudafed according to directions. May take Tessalon Perles 1 cap every 8 hours as needed for cough. Take over the counter acetaminophen (Tylenol) according to directions as needed for pain. May use cyclobenzaprine (Flexeril) 1 tab every 8 hours as needed for severe shoulder pain. This will cause drowsiness so do not take and drive or operate machinery. Follow up with your primary care provider in 5 days if symptoms persist. Seek immediate medical attention in the emergency room if you have fever greater than 100.5 F despite taking acetaminophen or ibuprofen, have chest pain , difficulty breathing, are unable to swallow, or have any worsening of symptoms. - Billing Disposition and Condition Condition: STABLE Disposition: Home
== END 2018-11-19 15:25 | disposition home or self-care (01) ==
LOC: UCEAST 14:14
DX: J06.9 Acute upper respiratory infection, unspecified (principal); R05 Cough; R09.81 Nasal congestion; M25.512 Pain in left shoulder; F17.210 Nicotine dependence, cigarettes, uncomplicated
CPT/HCPCS: 99212; G0463

== ENCOUNTER 2018-11-23 21:45 | Emergency (ER) | payer OTHER ==
--- NOTE | 2018-11-23 21:53 | UC ---
Shoulder Pain HPI - HPI Summary HPI Summary: 28 yo female presents with LEFT shoulder pain. She tells me that he shoulder initially began to hurt about a week or two ago and was a dull ache. She was seen at that time and prescribed flexeril for a muscle spasm. She has taken this with no relief. Since that time her shoulder pain has significantly worsened. Over the last 2-3 days she says she has "not been able to move" her shoulder without pain that brings her to tears. She cannot take ibuprofen or po NSAIDs as these upset her stomach. She has been taking tylenol with no relief. 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 Denies injury, numbness, tingling. - History of Current Complaint Stated Complaint: shoulder pain Time Seen by Provider: 11/23/18 21:48 Hx Obtained From: Patient Hx Last Menstrual Period: beginning of october Onset/Duration: Gradual Onset Severity Initially: Mild Severity Currently: Severe Pain Intensity: 10 Pain Scale Used: 0-10 Numeric - Allergies/Home Medications Allergies/Adverse Reactions: Allergies Allergy/AdvReac Type Severity Reaction Status Date / Time ibuprofen Allergy Intermediate nausea' Verified 11/23/18 21:52 PMH/Surg Hx/FS Hx/Imm Hx Psychological History: Anxiety, Depression - Surgical History Surgical History: Yes Surgery Procedure, Year, and Place: D&C 09/04 - Family History Known Family History: Positive: Non-Contributory - Social History Occupation: Unemployed Lives: With Family Alcohol Use: None Substance Use Type: None Smoking Status (MU): Light Every Day Tobacco Smoker Type: Cigarettes Amount Used/How Often: 5-6 CIG/DAY Length of Time of Smoking/Using Tobacco: 10 yrs Have You Smoked in the Last Year: Yes When Did the Patient Quit Smoking/Using Tobacco: working on quitting Review of Systems All Other Systems Reviewed And Are Negative: Yes Constitutional: Positive: Negative Respiratory: Positive: Negative Cardiovascular: Positive: Negative Neurovascular: Positive: Negative Musculoskeletal: Positive: Other: - Left shoulder pain Neurological: Positive: Negative Psychological: Positive: Negative Physical Exam - Summary Physical Exam Summary: GENERAL: NAD. WDWN. SKIN: No rashes, sores, lesions, or open wounds. CHEST: CTAB. No r/r/w. No accessory muscle use. Breathing comfortably and in no distress. CV: Pulses intact radial and ulnar. Cap refill <2seconds MSK: Point tenderness over AC joint. Keeps shoulder adducted and elbow flexed to abdomen. Cries in pain with >10deg of flexion or external rotation of the shoulder with most of the pain being in the AC region and joint capsule. NEURO: Alert. Sensations intact hand and all fingers. PSYCH: Age appropriate behavior. Triage Information Reviewed: Yes Vital Signs: Vital Signs: Temp Pulse Resp BP Pulse Ox 98.1 F 86 18 126/83 97 11/23/18 21:48 11/23/18 21:48 11/23/18 21:48 11/23/18 21:48 11/23/18 21:48 Vital Signs Reviewed: Yes Shoulder Course/Dx - Course Course Of Treatment: XR: No radiologist reading after 1800, therefore wet read by myself is negative for acute process. I suspect that she has developed some degree of adhesive capsulitis secondary to her favoring the left shoulder d/t prior muscle spasm over the last few weeks. Will refer her to Orthopedics as she does not want PT at this time and rx for percocet to take sparingly BID prn. Reference #: [id number] - Differential Dx/Diagnosis Provider Diagnosis: Left shoulder pain Discharge - Sign-Out/Discharge Documenting (check all that apply): Patient Departure All imaging exams completed and their final reports reviewed: No - Discharge Plan Condition: Stable Disposition: HOME Prescriptions: oxyCODONE/Acetamin 5/325 MG* [Percocet 5/325 TAB*] 1 tab PO BID PRN #6 tab MDD 2 PRN Reason: Pain Patient Education Materials: Adhesive Capsulitis (ED) Referrals: Barb Newman MD [Primary Care Provider] - Manjit Duvall MD [Medical Doctor] - As Soon As Possible Additional Instructions: If you develop a fever, shortness of breath, chest pain, new or worsening symptoms - please call your PCP or go to the ED. Please call Orthopedics at the number below to schedule a follow up appointment as soon as possible regarding your shoulder - Billing Disposition and Condition Condition: STABLE Disposition: Home
[2018-11-23 21:55] VITALS: BP 126/83
--- NOTE | 2018-11-24 12:30 | UC ---
- Progress Note Progress Note: RADIOLOGY REPORT REVIEWED. X-RAY UNREMARKABLE. NO CHANGE IN MANAGEMENT. Course/Dx - Diagnoses Provider Diagnoses: Left shoulder pain Discharge - Sign-Out/Discharge Documenting (check all that apply): Post-Discharge Follow Up All imaging exams completed and their final reports reviewed: Yes - Discharge Plan Condition: Stable Disposition: HOME Prescriptions: oxyCODONE/Acetamin 5/325 MG* [Percocet 5/325 TAB*] 1 tab PO BID PRN #6 tab MDD 2 PRN Reason: Pain Patient Education Materials: Adhesive Capsulitis (ED) Referrals: Barb Newman MD [Primary Care Provider] - Manjit Duvall MD [Medical Doctor] - As Soon As Possible Additional Instructions: If you develop a fever, shortness of breath, chest pain, new or worsening symptoms - please call your PCP or go to the ED. Please call Orthopedics at the number below to schedule a follow up appointment as soon as possible regarding your shoulder - Billing Disposition and Condition Condition: STABLE Disposition: Home
== END 2018-11-23 22:10 | disposition home or self-care (01) ==
LOC: UCEAST 21:45
DX: M25.512 Pain in left shoulder (principal); Z88.6 Allergy status to analgesic agent; F17.210 Nicotine dependence, cigarettes, uncomplicated
CPT/HCPCS: 99213; G0463

== ENCOUNTER 2018-12-28 10:15 | Emergency (ER) | payer OTHER ==
[2018-12-28] MEDS ORDERED: NS 0.9% 1000 ML** 1,000 ML IV ONE (10:34)
[2018-12-28] MEDS ORDERED: Morphine VIAL* 10 MG/ML 1 ML VIAL IV ONE (10:34)
[2018-12-28] MEDS ORDERED: Ondansetron INJ* 2 MG/ML VIAL IV ONE (10:34)
--- NOTE | 2018-12-28 10:51 | ED ---
Abdominal Pain/Female - HPI Summary HPI Summary: This patient is a 28 year old female presenting to the emergency department with a cc of lower abd pain that began 2 days ago. She rates the pain 10/10, describes it as sharp and intermittent, and states it is alleviated with compression. Pt compares to pain to prior cramps but states there is no chance she is as she has a tubal ligation. Along with this she also complains that it is worse after large meals and will spontaneously resolve after a couple hours. The pain is accompanied by nausea without vomiting. LNMP was 6 days ago. She had not had any abd surgery. Pt is an everyday smoker but denies etoh and drug use. - History of Current Complaint Chief Complaint: EDAbdPain Stated Complaint: ABD PAIN Time Seen by Provider: 12/28/18 10:20 Hx Obtained From: Patient Hx Last Menstrual Period: beginning of october Onset/Duration: Lasting Days, Still Present, Worse Since Timing: Intermittent Episode Lasting Severity Initially: Moderate Severity Currently: Severe Pain Intensity: 10 Pain Scale Used: 0-10 Numeric Location: Suprapubic Radiates: No Associated Signs and Symptoms: Positive: Nausea. Negative: Vomiting Allergies/Adverse Reactions: Allergies Allergy/AdvReac Type Severity Reaction Status Date / Time ibuprofen Allergy Intermediate nausea' Verified 12/28/18 10:33 PMH/Surg Hx/FS Hx/Imm Hx Endocrine/Hematology History: Denies: Hx Diabetes, Hx Thyroid Disease Cardiovascular History: Denies: Hx Hypertension Respiratory History: Denies: Hx Asthma, Hx Chronic Obstructive Pulmonary Disease (COPD), Hx Lung Cancer GI History: Denies: Hx Ulcer History: Denies: Hx Chronic Renal Failure Musculoskeletal History: Reports: Hx Back Problems Neurological History: Reports: Other Neuro Impairments/Disorders - SCIATIC NERVE PAIN ONCE BEFORE 2 YRS AGO - Surgical History Surgery Procedure, Year, and Place: D&C 09/04 - Immunization History Immunizations Up to Date: Yes Infectious Disease History: No Infectious Disease History: Denies: Hx Hepatitis, Hx Human Immunodeficiency Virus (HIV), History Other Infectious Disease, Traveled Outside the [place] in Last 30 Days - Family History Known Family History: Positive: Other - appendicitis and cholecystitis - Social History Alcohol Use: None Substance Use Type: Reports: None Smoking Status (MU): Light Every Day Tobacco Smoker Type: Cigarettes Amount Used/How Often: 5-6 CIG/DAY Length of Time of Smoking/Using Tobacco: 10 yrs Have You Smoked in the Last Year: Yes Review of Systems Negative: Fever Positive: Abdominal Pain, Nausea. Negative: Vomiting All Other Systems Reviewed And Are Negative: Yes Physical Exam - Summary Physical Exam Summary: VITAL SIGNS: Reviewed. GENERAL: Patient is a well-developed and obese female who is lying comfortable in the stretcher. Patient is not in any acute respiratory distress. HEAD AND FACE: No signs of trauma. No ecchymosis, hematomas or skull depressions. No sinus tenderness. EYES: PERRLA, EOMI x 2, No injected conjunctiva, no nystagmus. EARS: Hearing grossly intact. Ear canals and tympanic membranes are within normal limits. MOUTH: Oropharynx within normal limits. NECK: Supple, trachea is midline, no adenopathy, no JVD, no carotid bruit, no c- spine tenderness, neck with full ROM. CHEST: Symmetric, no tenderness at palpation LUNGS: Clear to auscultation bilaterally. No wheezing or crackles. CVS: Regular rate and rhythm, S1 and S2 present, no murmurs or gallops appreciated. ABDOMEN: Soft, RUQ is TTP. Obese. No signs of distention. No rebound no guarding , and no masses palpated. Bowel sounds are normal. EXTREMITIES: FROM in all major joints, no edema, no cyanosis or clubbing. NEURO: Alert and oriented x 3. No acute neurological deficits. Speech is normal and follows commands. SKIN: Dry and warm Triage Information Reviewed: Yes Vital Signs On Initial Exam: Initial Vitals Temp Pulse Resp BP Pulse Ox 97.1 F 95 16 133/88 99 12/28/18 10:16 12/28/18 10:16 12/28/18 10:16 12/28/18 10:16 12/28/18 10:16 Vital Signs Reviewed: Yes Diagnostics - Vital Signs Vital Signs Temp Pulse Resp BP Pulse Ox 12/28/18 10:43 71 119/71 97 12/28/18 10:16 97.1 F 95 16 133/88 99 - Laboratory Result Diagrams: 12/28/18 10:57 12/28/18 10:57 Lab Statement: Any lab studies that have been ordered have been reviewed, and results considered in the medical decision making process. - CT CT ABD/Pelvis CT Interpretation Completed By: Radiologist Summary of CT Findings: No abnormal masses or fluid collections are noted. Suggestion of pelvic congestion syndrome on the left. Dr Sanders has reviewed this report. - Ultrasound No standard instances Ultrasound Interpretation Completed By: Radiologist Summary of Ultrasound Findings: Gallbladder US reveals, per radiology, 1. NORMAL EXAMINATION OF THE GALLBLADDER. 2. MILD HEPATOMEGALY AND FINDINGS SUGGESTIVE OF FATTY INFILTRATION. Dr Sanders has reviewed this report. - EKG 1052 Cardiac Rate: NL EKG Rhythm: Sinus Rhythm - at 68 bpm Summary of EKG Findings: no st elevations, q wave in 3, nml axis. Abdominal Pain Fem Course/Dx - Course Course Of Treatment: Blood work without any significant abnormality except for total protein of 6.2, amylase 60, lipase is less than 1. Beta hCG is negative. Urinalysis is negative for UTI. Right upper quadrant ultrasound impression: normal examination of the gallbladder. Mild hepatomegaly and findings suggestive of fatty infiltration. In the ED course the patient was given IV fluids and Zofran for the nausea and vomiting. She continues to have nausea vomiting therefore she was given Reglan. Abdominopelvic CT impression: no abnormal masses or fluid collections are noted. In the ED course after the anti nausea medications the symptoms have improved. The pain has improved therefore since the blood work, ultrasound and abdominal pelvic CT are normal the patient will be discharged home with follow-up with primary care physician. Patient declined a pelvic exam. I discussed all the findings and test results with the patient. Patient was instructed to return to the emergency room immediately if any of the symptoms return or worsens. Plan of care was discussed with the patient and understands and agrees. All questions were answered at patient satisfaction. There were no further complaints or concerns. Lung exam before discharge: CTA B/L. Good air exchange. No wheezing or crackles heard. CVS: S1 and S2 present. No murmurs appreciated. Patient is alert and oriented x 3. Patient is hemodynamically stable. Patient will be discharged home with follow up PCP in the next 2-3 days - Diagnoses Differential Diagnosis: Positive: Appendicitis, Bowel Obstruction, Constipation , Diverticulitis, Gall Bladder Disease, Pancreatitis, Renal Colic, Urinary Tract Infection Provider Diagnoses: Upper abdominal pain Discharge - Sign-Out/Discharge Documenting (check all that apply): Patient Departure Patient Received Moderate/Deep Sedation with Procedure: No - Discharge Plan Condition: Fair Disposition: HOME Patient Education Materials: Acute Abdominal Pain (DC) Referrals: Barb Newman MD [Primary Care Provider] - Additional Instructions: Follow up with your primary care physician in 1-3 days. RETURN TO THE EMERGENCY DEPARTMENT FOR CHANGING OR WORSENING SYMPTOMS. - Billing Disposition and Condition Condition: FAIR Disposition: Home - Attestation Statements Document Initiated by Galina: Yes Documenting Scribe: Luis Antonio Ramirez Provider For Whom Scribe is Documenting (Include Credential): Tera Sanders MD Scribe Attestation: Luis Antonio Cali , scribed for Tera Sanders MD on 12/29/18 at 2046. Scribe Documentation Reviewed: Yes Provider Attestation: The documentation as recorded by the Luis Antonio ricci accurately reflects the service I personally performed and the decisions made by Tera maldonado MD Status of Scribe Document: Viewed
[2018-12-28 11:10] LABS: ABS Basophils 0 10^3/ul (0-0.2); ABS Eosinophils 0.1 10^3/ul (0-0.6); ABS Lymphocytes 1.6 10^3/ul (1.0-4.8); ABS Monocytes 0.5 10^3/ul (0-0.8); ABS Neutrophils 4.8 10^3/ul (1.5-7.7); ABS Nucleated RBC 0 10^3/ul; Eosinophil % 1.7 %; Hematocrit 43 % (35-47); Hemoglobin 14.3 g/dl (12.0-16.0); Lymphocyte % 23.2 %; Mean Corpuscular HGB Conc 33 g/dl (31-36); Mean Corpuscular Hemoglobin 30 pg (27-31); Mean Corpuscular Volume 88 fL (80-97); Mean Platelet Volume 8.8 fL (7.4-10.4); Nucleated Red Blood Cells % 0.1; Platelet Count 210 10^3/ul (150-450); Red Blood Count 4.87 10^6/ul (4.00-5.40); Red Cell Distribution Width 13 % (10.5-15)
[2018-12-28 11:31] LABS: ALT 14 U/L (7-52); AST 13 U/L (13-39); Albumin/Globulin Ratio 1.8 (1-3); Alkaline Phosphatase 50 U/L (34-104); Amylase 16 U/L (29-103); Anion Gap 7 mmol/L (2-11); BUN/Creatinine Ratio 18.8 (8-20); Blood Urea Nitrogen 12 mg/dL (6-24); C Reactive Protein 1.71 mg/L (<8.01); CO2 Carbon Dioxide 24 mmol/L (22-32); Calcium 9.1 mg/dL (8.6-10.3); Chloride 106 mmol/L (101-111); Creatine Kinase 90 U/L (10-223); EGFR African American 133.7 (>60); EGFR Non-African American 110.5 (>60); Globulin 2.2 g/dL (2-4); Glucose 87 mg/dL (70-100); Potassium 3.7 mmol/L (3.5-5.0); Sodium 137 mmol/L (135-145); Total Protein 6.2 g/dL (6.4-8.9)
[2018-12-28] MEDS ORDERED: Metoclopramide IV* 5 MG/ML 2 ML VIAL IV ONE (11:34)
[2018-12-28 11:37] LABS: HCG Pregnancy < 0.60 mIU/mL
[2018-12-28 12:04] LABS: Urine Appearance Cloudy; Urine Bilirubin Negative (Negative); Urine Blood Negative (Negative); Urine Color Yellow; Urine Glucose Negative (Negative); Urine Ketones Negative (Negative); Urine Nitrite Negative (Negative); Urine Protein Negative (Negative); Urine Specific Gravity 1.019 (1.010-1.030); Urine Urobilinogen Negative (Negative)
[2018-12-28] MEDS ORDERED: Iohexol 300* (CONTRAST) 10 ML SDV IV ONE (12:08)
[2018-12-28 13:07] VITALS: BP 106/59
== END 2018-12-28 13:06 | disposition home or self-care (01) ==
LOC: ED 10:15
DX: R10.10 Upper abdominal pain, unspecified (principal); F17.210 Nicotine dependence, cigarettes, uncomplicated
CPT/HCPCS: 36415; 74177; 76705; 80053; 81003; 82150; 82550; 83605; 83690; 84702; 85025; 86140; 93005; 96361; 96374; 96375; 99283; J2270; J2405; J2765; Q9967

== ENCOUNTER 2019-01-03 12:10 | Emergency (ER) | payer OTHER ==
[2019-01-03 12:45] VITALS: BP 119/84
--- NOTE | 2019-01-03 14:09 | UC ---
Knee Pain HPI - HPI Summary HPI Summary: 4 DAYS OF LEFT KNEE PAIN SINCE MOVING HOUSES. - History of Current Complaint Chief Complaint: UCLowerExtremity Stated Complaint: KNEE INJURY Time Seen by Provider: 01/03/19 13:10 Hx Obtained From: Patient Hx Last Menstrual Period: 01/02/19 Onset/Duration: Gradual Onset, Lasting Days, Still Present Severity Initially: Moderate Severity Currently: Moderate Pain Intensity: 8 Pain Scale Used: 0-10 Numeric Character: Sharp Aggravating Factor(s): Movement, Weight Bearing Alleviating Factor(s): Rest Associated Signs And Symptoms: Positive: Negative Able to Bear Weight: Yes - WITH PAIN - Allergies/Home Medications Allergies/Adverse Reactions: Allergies Allergy/AdvReac Type Severity Reaction Status Date / Time ibuprofen Allergy Intermediate nausea' Verified 01/03/19 12:45 PMH/Surg Hx/FS Hx/Imm Hx Previously Healthy: Yes - Surgical History Surgical History: Yes Surgery Procedure, Year, and Place: D&C 09/04 - Family History Known Family History: Positive: Other - appendicitis and cholecystitis, Non- Contributory - Social History Alcohol Use: None Substance Use Type: None Smoking Status (MU): Light Every Day Tobacco Smoker Type: Cigarettes Amount Used/How Often: 5-6 CIG/DAY Length of Time of Smoking/Using Tobacco: 10 yrs Have You Smoked in the Last Year: Yes When Did the Patient Quit Smoking/Using Tobacco: working on quitting Review of Systems All Other Systems Reviewed And Are Negative: Yes Constitutional: Positive: Negative Skin: Positive: Negative Respiratory: Positive: Negative Cardiovascular: Positive: Negative Gastrointestinal: Positive: Negative Musculoskeletal: Positive: Arthralgia, Decreased ROM Physical Exam Triage Information Reviewed: Yes Appearance: Well-Appearing, No Pain Distress, Well-Nourished Vital Signs: Initial Vital Signs Temp 97.1 F 01/03/19 12:42 Pulse 74 01/03/19 12:42 Resp 16 01/03/19 12:42 BP 119/84 01/03/19 12:42 Pulse Ox 100 01/03/19 12:42 Vital Signs Reviewed: Yes Eyes: Positive: Conjunctiva Clear ENT: Positive: Hearing grossly normal Neck: Positive: Supple Respiratory: Positive: No respiratory distress, No accessory muscle use Cardiovascular: Positive: Pulses Normal Abdomen Description: Positive: Soft Musculoskeletal: Positive: No Edema, ROM Limited @ - LEFT KNEE, Other: - LEFT KNEE: TENDER DIFFUSELY OVER LEFT KNEE. MCL AND LCL INTACT TO STRESS TESTING. NEG LACHMANS. NEG DRAWERS SIGNS. UNABLE TO PERFORM MCMURRAYS DUE TO PT DISCOMFORT. DECREASED ROM (FLEXION). Neurological: Positive: Alert Psychological: Positive: Age Appropriate Behavior Skin: Negative: Rashes Diagnostics - Radiology LEFT KNEE XRAY Radiology Interpretation Completed By: Radiologist Summary of Radiographic Findings: NO ACUTE OSSEOUS INJURY. Knee Pain Course/Dx - Differential Dx/Diagnosis Provider Diagnosis: Left knee sprain Discharge - Sign-Out/Discharge Documenting (check all that apply): Patient Departure All imaging exams completed and their final reports reviewed: Yes - Discharge Plan Condition: Stable Disposition: HOME Patient Education Materials: Knee Sprain (ED) Referrals: Barb Newman MD [Primary Care Provider] - 1 Week Jered Christie MD [Medical Doctor] - If Needed Additional Instructions: KNEE XRAY TODAY UNREMARKABLE. YOUR SYMPTOMS SHOULD IMPROVE SIGNIFICANTLY OVER THE NEXT 1-2 WEEKS. IF YOU DO NOT IMPROVE EXPECTED FOLLOW-UP WITH YOUR PCP OR ORTHO. YOU MAY BENEFIT FROM MORE ADVANCED IMAGING AT THAT TIME. REST. OTC MEDS NEEDED FOR DISCOMFORT. KNEE IMMOBILIZER TO HELP WITH COMPRESSION AND SUPPORT. BE SURE TO GO THROUGH SLOW RANGE OF MOTION AND STRETCHING EXERCISES DAILY YOU ARE ABLE TO PREVENT STIFFENING UP AND MAKING THE DISCOMFORT WORSE. - Billing Disposition and Condition Condition: STABLE Disposition: Home
[2019-01-03] MEDS ORDERED: Acetaminophen TAB* 325 MG PO ONE (14:27)
== END 2019-01-03 14:35 | disposition home or self-care (01) ==
LOC: UCEAST 12:10
DX: S83.92XA Sprain of unspecified site of left knee, initial encounter (principal); F17.210 Nicotine dependence, cigarettes, uncomplicated; X58.XXXA Exposure to other specified factors, initial encounter; Z88.8 Allergy status to other drugs, medicaments and biological substances; Y92.9 Unspecified place or not applicable
CPT/HCPCS: 99212; A9270-GY; G0463